=== PATIENT | male | born 1995 | race Caucasian/White ===

== ENCOUNTER 2016-10-28 11:08 | Inpatient (IN) | payer OTHER ==
[2016-10-28] MEDS ORDERED: Ziprasidone IM INJ* 20 MG/ML VIAL IM ONE (11:28)
[2016-10-28] MEDS ORDERED: LORazepam INJ* 2 MG/ML 1 ML VIAL IM ONE (12:44)
[2016-10-28] MEDS ORDERED: diPHENhydraMINE IV* 50 MG/ML 1 ml VIAL (BENADRYL) IM ONE (12:44)
[2016-10-28 14:29] LABS: Hematocrit 44 % (42-52); Hemoglobin 14.5 g/dl (14.0-18.0); Mean Corpuscular HGB Conc 33 g/dl (31-36); Mean Corpuscular Hemoglobin 29 pg (27-31); Mean Corpuscular Volume 87 fL (80-94); Mean Platelet Volume 7 um3 (7.4-10.4); Red Blood Count 5.05 10^6/ul (4.0-5.4); Red Cell Distribution Width 13 % (10.5-15); White Blood Count 9.4 10^3/ul (3.5-10.8)
[2016-10-28 14:43] LABS: ALT 35 U/L (7-52); AST 28 U/L (13-39); Albumin 4.3 g/dL (3.2-5.2); Alkaline Phosphatase 71 U/L (34-104); Anion Gap 8 mmol/L (2-11); BUN/Creatinine Ratio 8.6 (8-20); Blood Urea Nitrogen 9 mg/dL (6-24); CO2 Carbon Dioxide 26 mmol/L (22-32); Calcium 9.7 mg/dL (8.6-10.3); Chloride 104 mmol/L (101-111); EGFR African American 113.6 (>60); EGFR Non-African American 88.3 (>60); Glucose 100 mg/dL (70-100); Potassium 3.4 mmol/L (3.5-5.0); Sodium 138 mmol/L (133-145); Total Protein 7.3 g/dL (6.4-8.9)
[2016-10-28 15:15] LABS: Acetaminophen < 15 mcg/mL; Alcohol < 10 mg/dL (<10); Salicylate < 2.50 mg/dL (<30)
[2016-10-28 15:25] LABS: TSH (Thyroid Stimulating Horm) 3.46 mcIU/mL (0.34-5.60)
[2016-10-28 16:02] LABS: Urine Bacteria Absent (Absent); Urine Bilirubin Negative (Negative); Urine Glucose Negative (Negative); Urine Nitrite Negative (Negative)
[2016-10-28 16:12] LABS: Benzodiazepine Urine Screen None Detected (None Detect)
[2016-10-28] MEDS ORDERED: Nicotine Inhaler* 10 MG AMP INH PRN (16:41)
--- NOTE | 2016-10-28 19:13 | ED ---
Jude Mccord Billy, scribed for Hari Mayers MD on 10/28/16 at 1228 . Psychiatric Complaint - HPI Summary HPI Summary: Patient is a 21 year-old male coming to [facility] for mental health evaluation today. Per EMS, patient admits to marijuana use, unknown if any other drugs/ EtOH is involved. Patient states that he does not feel that he is having a psychotic break, when asked. He repeatedly states that "there's nothing you can do for me" and he says "I need help, only I can help myself." Patient is uncooperative for exam and does not answer most questions in a clear or coherent manner. He states he is anxious and depressed. Denies any hallucinations. - History Of Current Complaint Chief Complaint: EDMentalHealth Time Seen by Provider: 10/28/16 11:23 Hx Obtained From: Patient, EMS Hx From Patient Unobtainable Due To: Other - Uncooperative, limited history Onset/Duration: Gradual Onset Timing: Constant Severity Initially: Moderate Severity Currently: Moderate Character: Depressed, Anxious Associated Signs And Symptoms: Negative: Hallucinating - Allergies/Home Medications Home Medications: Home Medications Unobtainable [Unobtainable] 10/28/16 [History Confirmed 10/28/16] PMH/Surg Hx/FS Hx/Imm Hx Psychiatric History: Reports: Hx Depression Infectious Disease History: Unable to Obtain/Confirm Infectious Disease History: Denies: Traveled Outside the [place] in Last 30 Days - Family History Known Family History: Positive: Unknown - Patient is generally uncooperative. - Social History Lives: With Family Substance Use Type: Reports: Marijuana Smoking Status (MU): Unknown if Ever Smoked Review of Systems Negative: Fever Positive: Anxious, Depressed All Other Systems Reviewed And Are Negative: Yes Physical Exam Triage Information Reviewed: Yes Vital Signs On Initial Exam: Initial Vitals Temp Pulse Resp BP Pulse Ox 98.4 F 111 18 158/100 100 10/28/16 11:13 10/28/16 11:13 10/28/16 11:13 10/28/16 11:13 10/28/16 11:13 Vital Signs Reviewed: Yes Completion Of Physical Exam Limited Due To: Other - Patient is generally uncooperative for exam. Appearance: Positive: Well-Appearing, No Pain Distress Skin: Positive: Skin Color Reflects Adequate Perfusion, Dry Head/Face: Positive: Normal Head/Face Inspection Neurological: Positive: Alert, Oriented to Person Place, Time Psychiatric: Positive: Patient Uncooperative for Exam Diagnostics - Vital Signs Vital Signs Temp Pulse Resp BP Pulse Ox 10/28/16 11:13 98.4 F 111 18 158/100 100 - Laboratory Lab Results: Lab Results 10/28/16 10/28/16 10/28/16 Range/Units 14:22 14:22 15:44 WBC 9.4 (3.5-10.8) 10^3/ul RBC 5.05 (4.0-5.4) 10^6/ul Hgb 14.5 (14.0-18.0) g/dl Hct 44 (42-52) % MCV 87 (80-94) fL MCH 29 (27-31) pg MCHC 33 (31-36) g/dl RDW 13 (10.5-15) % Plt Count 215 (150-450) 10^3/ul MPV 7 L (7.4-10.4) um3 Neut % (Auto) 81.2 (38-83) % Lymph % (Auto) 12.7 L (25-47) % Edmonson % (Auto) 5.3 (1-9) % Eos % (Auto) 0.2 (0-6) % Baso % (Auto) 0.6 (0-2) % Absolute Neuts (auto) 7.7 (1.5-7.7) 10^3/ul Absolute Lymphs (auto) 1.2 (1.0-4.8) 10^3/ul Absolute Monos (auto) 0.5 (0-0.8) 10^3/ul Absolute Eos (auto) 0 (0-0.6) 10^3/ul Absolute Basos (auto) 0.1 (0-0.2) 10^3/ul Absolute Nucleated RBC 0.01 10^3/ul Nucleated RBC % 0.1 Sodium 138 (133-145) mmol/L Potassium 3.4 L (3.5-5.0) mmol/L Chloride 104 (101-111) mmol/L Carbon Dioxide 26 (22-32) mmol/L Anion Gap 8 (2-11) mmol/L BUN 9 (6-24) mg/dL Creatinine 1.05 (0.67-1.17) mg/dL Est GFR ( Amer) 113.6 (>60) Est GFR (Non-Af Amer) 88.3 (>60) BUN/Creatinine Ratio 8.6 (8-20) Glucose 100 (70-100) mg/dL Calcium 9.7 (8.6-10.3) mg/dL Total Bilirubin 1.20 H (0.2-1.0) mg/dL AST 28 (13-39) U/L ALT 35 (7-52) U/L Alkaline Phosphatase 71 (34-104) U/L Total Protein 7.3 (6.4-8.9) g/dL Albumin 4.3 (3.2-5.2) g/dL Globulin 3.0 (2-4) g/dL Albumin/Globulin Ratio 1.4 (1-3) TSH 3.46 (0.34-5.60) mcIU/mL Urine Color Straw Urine Appearance Clear Urine pH 6.0 (5-9) Ur Specific [place] 1.003 L (1.010-1.030) Urine Protein Negative (Negative) Urine Ketones Trace H (Negative) Urine Blood 1+ H (Negative) Urine Nitrate Negative (Negative) Urine Bilirubin Negative (Negative) Urine Urobilinogen Negative (Negative) Ur Leukocyte Esterase Negative (Negative) Urine WBC (Auto) Absent (Absent) Urine RBC (Auto) Trace(0-2/hpf) (Absent) Urine Bacteria Absent (Absent) Urine Glucose Negative (Negative) Salicylates < 2.50 (<30) mg/dL Urine Opiates Screen (None Detect) Acetaminophen < 15 mcg/mL Ur Barbiturates Screen (None Detect) Ur Phencyclidine Scrn (None Detect) Ur Amphetamines Screen (None Detect) U Benzodiazepines Scrn (None Detect) Urine Cocaine Screen (None Detect) U Cannabinoids Screen (None Detect) Serum Alcohol < 10 (<10) mg/dL 10/28/16 Range/Units 15:44 WBC (3.5-10.8) 10^3/ul RBC (4.0-5.4) 10^6/ul Hgb (14.0-18.0) g/dl Hct (42-52) % MCV (80-94) fL MCH (27-31) pg MCHC (31-36) g/dl RDW (10.5-15) % Plt Count (150-450) 10^3/ul MPV (7.4-10.4) um3 Neut % (Auto) (38-83) % Lymph % (Auto) (25-47) % Edmonson % (Auto) (1-9) % Eos % (Auto) (0-6) % Baso % (Auto) (0-2) % Absolute Neuts (auto) (1.5-7.7) 10^3/ul Absolute Lymphs (auto) (1.0-4.8) 10^3/ul Absolute Monos (auto) (0-0.8) 10^3/ul Absolute Eos (auto) (0-0.6) 10^3/ul Absolute Basos (auto) (0-0.2) 10^3/ul Absolute Nucleated RBC 10^3/ul Nucleated RBC % Sodium (133-145) mmol/L Potassium (3.5-5.0) mmol/L Chloride (101-111) mmol/L Carbon Dioxide (22-32) mmol/L Anion Gap (2-11) mmol/L BUN (6-24) mg/dL Creatinine (0.67-1.17) mg/dL Est GFR ( Amer) (>60) Est GFR (Non-Af Amer) (>60) BUN/Creatinine Ratio (8-20) Glucose (70-100) mg/dL Calcium (8.6-10.3) mg/dL Total Bilirubin (0.2-1.0) mg/dL AST (13-39) U/L ALT (7-52) U/L Alkaline Phosphatase (34-104) U/L Total Protein (6.4-8.9) g/dL Albumin (3.2-5.2) g/dL Globulin (2-4) g/dL Albumin/Globulin Ratio (1-3) TSH (0.34-5.60) mcIU/mL Urine Color Urine Appearance Urine pH (5-9) Ur Specific [place] (1.010-1.030) Urine Protein (Negative) Urine Ketones (Negative) Urine Blood (Negative) Urine Nitrate (Negative) Urine Bilirubin (Negative) Urine Urobilinogen (Negative) Ur Leukocyte Esterase (Negative) Urine WBC (Auto) (Absent) Urine RBC (Auto) (Absent) Urine Bacteria (Absent) Urine Glucose (Negative) Salicylates (<30) mg/dL Urine Opiates Screen None detected (None Detect) Acetaminophen mcg/mL Ur Barbiturates Screen None detected (None Detect) Ur Phencyclidine Scrn None detected (None Detect) Ur Amphetamines Screen None detected (None Detect) U Benzodiazepines Scrn None detected (None Detect) Urine Cocaine Screen None detected (None Detect) U Cannabinoids Screen None detected (None Detect) Serum Alcohol (<10) mg/dL Result Diagrams: 10/28/16 14:22 10/28/16 14:22 Lab Statement: Any lab studies that have been ordered have been reviewed, and results considered in the medical decision making process. Course/Dx - Course Course Of Treatment: mhe pending at shift change - Differential Dx/Clinical Impression Provider Diagnosis: Mental health problem - Critical Care Time Critical Care Time: 30-74 min Discharge - Discharge Plan Condition: Stable [place] [place]: No Primary Care Phys,NOPCP [Primary Care Provider] - The documentation as recorded by the Jude norton Billy accurately reflects the service I personally performed and the decisions made by me, Hari Mayers MD.
[2016-10-28] MEDS: OLANzapine TAB*ODT* 10 MG TAB PO SCH ×2 (21:40→22:15)
[2016-10-29] MEDS: Vitamin THERAPEUTIC TAB PO SCH (09:51)
[2016-10-29] MEDS: Ziprasidone CAP* 80 MG PO SCH (21:21)
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
[2016-10-30] MEDS: Vitamin THERAPEUTIC TAB PO SCH (09:45)
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
[2016-10-30] MEDS: Lithium Carbonate TAB* 300 MG PO SCH ×2 (12:04→20:52)
--- NOTE | 2016-10-30 14:09 | PN ---
[facility]: Group Therapy Note - Service Type Service Type: [id number] Group Psychotherapy - Cognitive Behavioral Group Therapy ( CBT):Patient was attentive and participatory in CBT programming this morning, and remained in good behavioral control. Patient expressed positive insights regarding relevant treatment interventions and goals.
[2016-10-30] MEDS: Ziprasidone CAP* 80 MG PO SCH (20:52)
[2016-10-31] MEDS ORDERED: diPHENhydraMINE PO* 50 MG ONE (00:34)
[2016-10-31] MEDS ORDERED: Haloperidol TAB* 5 MG ONE (00:35)
[2016-10-31] MEDS ORDERED: LORazepam TAB(*) 1 MG ONE (00:35)
[2016-10-31] MEDS ORDERED: LORazepam INJ* 2 MG/ML 1 ML VIAL ONE (00:37)
[2016-10-31] MEDS ORDERED: diPHENhydraMINE IV* 50 MG/ML 1 ml VIAL (BENADRYL) ONE (00:37)
[2016-10-31] MEDS ORDERED: Haloperidol INJ IV/IM* 5 MG/ML AMP ONE (00:38)
[2016-10-31] MEDS: Lithium Carbonate TAB* 300 MG PO SCH ×2 (09:15→21:59)
[2016-10-31] MEDS: Vitamin THERAPEUTIC TAB PO SCH (09:15)
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
[2016-10-31] MEDS: Ziprasidone CAP* 80 MG PO SCH (21:59)
[2016-11-01] MEDS: Vitamin THERAPEUTIC TAB PO SCH (09:20)
[2016-11-01] MEDS: Lithium Carbonate TAB* 300 MG PO SCH ×2 (09:20→20:17)
[2016-11-01] MEDS ORDERED: Ziprasidone CAP* 80 MG PO ONE (14:00)
[2016-11-01] MEDS ORDERED: Lithium Carbonate TAB* 300 MG PO ONE (14:00)
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
[2016-11-01] MEDS: Ziprasidone CAP* 80 MG PO SCH (20:18)
[2016-11-01] MEDS ORDERED: QUEtiapine TAB* 100 MG ONE (21:54)
[2016-11-01] MEDS ORDERED: diPHENhydraMINE PO* 50 MG PO PRN (21:59)
[2016-11-02] MEDS: Vitamin THERAPEUTIC TAB PO SCH (08:13)
[2016-11-02] MEDS: Lithium Carbonate TAB* 300 MG PO SCH ×2 (08:13→21:02)
[2016-11-02] MEDS: Ziprasidone CAP* 80 MG PO SCH (21:02)
[2016-11-02] MEDS ORDERED: LORazepam TAB(*) 1 MG ONE (21:27)
[2016-11-02] MEDS ORDERED: diPHENhydraMINE PO* 50 MG ONE (21:27)
[2016-11-02] MEDS ORDERED: Haloperidol TAB* 5 MG ONE (21:28)
[2016-11-02] MEDS ORDERED: LORazepam INJ* 2 MG/ML 1 ML VIAL ONE (21:36)
[2016-11-02] MEDS ORDERED: Haloperidol INJ IV/IM* 5 MG/ML AMP ONE (21:36)
[2016-11-02] MEDS ORDERED: diPHENhydraMINE IV* 50 MG/ML 1 ml VIAL (BENADRYL) ONE (21:36)
[2016-11-03] MEDS: Vitamin THERAPEUTIC TAB PO SCH (10:20)
[2016-11-03] MEDS: Lithium Carbonate TAB* 300 MG PO SCH (10:20)
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
[2016-11-03] MEDS: Lithium Carbonate ER* 450 MG TAB.ER PO SCH (20:35)
[2016-11-03] MEDS: Ziprasidone CAP* 80 MG PO SCH (20:36)
[2016-11-04] MEDS: Vitamin THERAPEUTIC TAB PO SCH (08:11)
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
[2016-11-04] MEDS ORDERED: diPHENhydraMINE PO* 50 MG PO ONE (21:35)
[2016-11-04] MEDS ORDERED: LORazepam TAB(*) 1 MG PO ONE (21:35)
[2016-11-04] MEDS ORDERED: Haloperidol TAB* 5 MG PO ONE (21:35)
[2016-11-04] MEDS ORDERED: Haloperidol TAB* 5 MG ONE (21:36)
[2016-11-04] MEDS ORDERED: diPHENhydraMINE PO* 50 MG ONE (21:37)
[2016-11-04] MEDS ORDERED: LORazepam TAB(*) 1 MG ONE (21:37)
[2016-11-04] MEDS ORDERED: Haloperidol INJ IV/IM* 5 MG/ML AMP ONE (21:38)
[2016-11-04] MEDS ORDERED: LORazepam INJ* 2 MG/ML 1 ML VIAL ONE (21:38)
[2016-11-04] MEDS ORDERED: diPHENhydraMINE IV* 50 MG/ML 1 ml VIAL (BENADRYL) ONE (21:39)
[2016-11-04] MEDS: Ziprasidone CAP* 80 MG PO SCH (21:45)
[2016-11-04] MEDS: Lithium Carbonate ER* 450 MG TAB.ER PO SCH (21:45)
[2016-11-05] MEDS: Vitamin THERAPEUTIC TAB PO SCH (08:16)
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
[2016-11-05] MEDS: Ziprasidone CAP* 80 MG PO SCH (21:47)
[2016-11-05] MEDS: Ziprasidone * 20 MG CAP (generic Geodon) PO SCH (21:48)
[2016-11-05] MEDS: Lithium Carbonate ER* 450 MG TAB.ER PO SCH (22:26)
[2016-11-06 07:24] LABS: HDL Cholesterol 40.6 mg/dL
[2016-11-06 07:46] LABS: Lithium 0.18 mmol/L (0.6-1.2)
[2016-11-06] MEDS: Vitamin THERAPEUTIC TAB PO SCH (09:48)
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
[2016-11-06] MEDS: Acetaminophen TAB* 325 MG PO PRN ×2 (16:47→20:07)
[2016-11-06] MEDS ORDERED: Mouth Piece, Nicotine* 1 EACH CARTRIDGE ONE (19:10)
[2016-11-06] MEDS: Lithium Carbonate ER* 450 MG TAB.ER PO SCH (21:29)
[2016-11-06] MEDS: Ziprasidone * 20 MG CAP (generic Geodon) PO SCH (21:29)
[2016-11-06] MEDS: Ziprasidone CAP* 80 MG PO SCH (21:30)
[2016-11-07] MEDS: Acetaminophen TAB* 325 MG PO PRN ×2 (02:36→06:23)
[2016-11-07] MEDS: Vitamin THERAPEUTIC TAB PO SCH (07:35)
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
[2016-11-07] MEDS: Lithium Carbonate ER* 450 MG TAB.ER PO SCH (20:55)
[2016-11-07] MEDS: Ziprasidone * 20 MG CAP (generic Geodon) PO SCH (20:56)
[2016-11-07] MEDS: Ziprasidone CAP* 80 MG PO SCH (20:57)
[2016-11-07] MEDS: Zolpidem TAB* 5 MG PO PRN (21:54)
[2016-11-08] MEDS: Vitamin THERAPEUTIC TAB PO SCH (08:34)
[2016-11-08] MEDS: Lithium Carbonate ER* 450 MG TAB.ER PO SCH (21:22)
[2016-11-08] MEDS: Ziprasidone * 20 MG CAP (generic Geodon) PO SCH (21:23)
[2016-11-08] MEDS: Ziprasidone CAP* 80 MG PO SCH (21:23)
[2016-11-08] MEDS: Zolpidem TAB* 5 MG PO PRN (22:03)
[2016-11-09] MEDS: Vitamin THERAPEUTIC TAB PO SCH ×2 (06:04→09:07)
[2016-11-09] MEDS: Acetaminophen TAB* 325 MG PO PRN ×2 (13:20→19:30)
[2016-11-09] MEDS: Al Hydrox/Mg Hydrox/Simet LIQ* 30 ML UDC PO PRN ×2 (14:59→19:05)
[2016-11-09] MEDS: Lithium Carbonate ER* 450 MG TAB.ER PO SCH (21:12)
[2016-11-09] MEDS: Ziprasidone * 20 MG CAP (generic Geodon) PO SCH (21:12)
[2016-11-09] MEDS: Ziprasidone CAP* 80 MG PO SCH (21:13)
[2016-11-09] MEDS: Zolpidem TAB* 5 MG PO PRN (21:21)
[2016-11-10] MEDS: Al Hydrox/Mg Hydrox/Simet LIQ* 30 ML UDC PO PRN ×4 (07:48→20:53)
[2016-11-10] MEDS: Vitamin THERAPEUTIC TAB PO SCH (08:21)
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
[2016-11-10] MEDS ORDERED: Ziprasidone CAP* 80 MG PO ONE (10:05)
--- NOTE | 2016-11-10 12:04 | PN ---
MHU: Group Therapy Note - Service Type Service Type: 33072 Group Psychotherapy - Cognitive Behavioral Group Therapy ( CBT):Patient was attentive and participatory in CBT programming this morning, and remained in good behavioral control. Patient expressed positive insights regarding relevant treatment interventions and goals.
[2016-11-10] MEDS: Lithium Carbonate ER* 450 MG TAB.ER PO SCH (20:53)
[2016-11-10] MEDS: Zolpidem TAB* 5 MG PO PRN ×2 (20:53→22:22)
[2016-11-10] MEDS: Ziprasidone CAP* 80 MG PO SCH ×2 (20:53)
[2016-11-11] MEDS: Al Hydrox/Mg Hydrox/Simet LIQ* 30 ML UDC PO PRN ×3 (04:42→17:50)
[2016-11-11 08:09] LABS: HDL Cholesterol 41.3 mg/dL
[2016-11-11 08:34] LABS: Lithium 0.6 mmol/L (0.6-1.2)
[2016-11-11] MEDS: Vitamin THERAPEUTIC TAB PO SCH (09:56)
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
[2016-11-11] MEDS ORDERED: Lithium Carbonate ER* 450 MG TAB.ER PO ONE (21:00)
[2016-11-11] MEDS: Lithium Carbonate ER* 450 MG TAB.ER PO SCH (21:48)
[2016-11-11] MEDS: Ziprasidone CAP* 80 MG PO SCH (21:49)
[2016-11-12] MEDS: Vitamin THERAPEUTIC TAB PO SCH (07:50)
[2016-11-12] MEDS: Al Hydrox/Mg Hydrox/Simet LIQ* 30 ML UDC PO PRN ×2 (07:51→19:47)
[2016-11-12] MEDS: Lithium Carbonate ER* 450 MG TAB.ER PO SCH ×2 (07:51→22:09)
--- NOTE | 2016-11-12 11:47 | PN ---
MHU: Group Therapy Note - Service Type Service Type: [id number] Group Psychotherapy - Cognitive Behavioral Group Therapy ( CBT):Patient presented in CBT programming as disorganized and disruptive in discussion and needed repeated redirection to attend to presented materials.
[2016-11-12] MEDS: Ziprasidone CAP* 80 MG PO SCH (22:10)
[2016-11-12] MEDS: Zolpidem TAB* 5 MG PO PRN (22:10)
[2016-11-13] MEDS: Vitamin THERAPEUTIC TAB PO SCH (09:01)
[2016-11-13] MEDS: Lithium Carbonate ER* 450 MG TAB.ER PO SCH ×2 (09:01→20:43)
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
[2016-11-13] MEDS: Ziprasidone * 20 MG CAP (generic Geodon) PO SCH (13:25)
[2016-11-13] MEDS: Acetaminophen TAB* 325 MG PO PRN ×2 (14:12→19:20)
[2016-11-13] MEDS: Ziprasidone CAP* 80 MG PO SCH (20:44)
[2016-11-13] MEDS: Zolpidem TAB* 5 MG PO PRN (20:44)
[2016-11-14] MEDS: Vitamin THERAPEUTIC TAB PO SCH (08:30)
[2016-11-14] MEDS: Lithium Carbonate ER* 450 MG TAB.ER PO SCH ×2 (08:30→20:49)
[2016-11-14] MEDS: Ziprasidone * 20 MG CAP (generic Geodon) PO SCH (08:31)
[2016-11-14] MEDS: Acetaminophen TAB* 325 MG PO PRN (13:04)
[2016-11-14] MEDS: Ziprasidone CAP* 80 MG PO SCH (20:49)
[2016-11-15] MEDS: Acetaminophen TAB* 325 MG PO PRN ×2 (08:34→12:52)
[2016-11-15] MEDS: Vitamin THERAPEUTIC TAB PO SCH (08:35)
[2016-11-15] MEDS: Lithium Carbonate ER* 450 MG TAB.ER PO SCH ×2 (08:35→20:21)
[2016-11-15] MEDS: Ziprasidone * 20 MG CAP (generic Geodon) PO SCH (11:12)
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
[2016-11-15] MEDS: Ziprasidone CAP* 80 MG PO SCH (20:21)
[2016-11-16] MEDS: Vitamin THERAPEUTIC TAB PO SCH (08:51)
[2016-11-16] MEDS: Ziprasidone * 20 MG CAP (generic Geodon) PO SCH (08:51)
[2016-11-16] MEDS: Lithium Carbonate ER* 450 MG TAB.ER PO SCH ×2 (10:01→22:04)
--- NOTE | 2016-11-16 14:47 | PN ---
Subjective - Subjective Subjective: Spoke with patient today at length regarding his desire to discontinue lithium. Reviewed bipolar illness and the fact that medication is one of the mainstays of treating the disorder. He was quite happy that his father said that he could come live with him upon discharge. Stated that he feels that his sleep here is poor secondary to the staff policy to check patients every 15 minutes throughout the night, but verbalized and understanding as to why it is done. He further reported that he is eager to have a family meeting. Case discussed with Dr. Skinner. Objective - Appearance Dysmorphic Features: No Hygiene: Normal Grooming: Well Kept - Behavior Psychomotor Activities: Normal Exhibits Abnormal Movement: No - Attitude and Relatedness Attitude and Relatedness: Cooperative Eye Contact: Good - Speech Quality: Unpressured Latencies: Normal Quantity: Appropriate - Mood Patient's Decription of Mood: "Good" - Affect Observed Affect: Non-labile Affect Consistent with: Euthymia - Thought Process Patient's Thought Process: Coherent Thought Content: No Passive Wish, No Suicidal Planning, No Homicidal Ideation, No Paranoid Ideation - Sensorium Type of Hallucinations: Visual: No, Auditory: No, Command: No - Level of Consciousness Orientation: Yes Intact, Yes Orientated to Time, Yes Orientated to Place, Yes Orientated to Person - Impulse Control Impulse Control: Tenuous - Insight and Judgement Insight and Judgement: Fair - Group Participation Particating in Group Activities: Yes - Medication Management Medication Management Adherence: Yes Assessment - Assessment Inpatient DSM-IV Dx: Bipolar Rosalina, severe with psychotic features Plan - Plan Treatment Plan: Name: TOMMIE CABRAL Birthdate: 1995 [id number] Medications: Current Medications Acetaminophen (Tylenol Tab*) 650 mg PO Q4H PRN PRN Reason: for pain; or Temp >101 F Last Admin: 11/15/16 12:52 Dose: 650 mg Al Hydrox/Mg Hydrox/Simethicone (Maalox Plus*) 30 ml PO Q4H PRN PRN Reason: INDIGESTION Last Admin: 11/12/16 19:47 Dose: 30 ml [place] Carbonate ([place] Carbonate Er Tab*) 900 mg PO BID [facility] Last Admin: 11/16/16 10:01 Dose: Not Given Multivitamins (Theragran Tab*) 1 tab PO DAILY [facility] Last Admin: 04/23/17 08:51 Dose: 1 tab Nicotine (Nicotine Inhaler*) 10 mg INH Q2H PRN PRN Reason: CRAVING Last Admin: 11/06/16 19:10 Dose: 10 mg Ziprasidone (Geodon Cap*) 160 mg PO BEDTIME FLACO Last Admin: 11/15/16 20:21 Dose: 160 mg Ziprasidone (Geodon (Generic) *) 40 mg PO DAILY FLACO Last Admin: 11/16/16 08:51 Dose: 40 mg Zolpidem Tartrate (Ambien Tab*) 5 mg PO BEDTIME PRN PRN Reason: INSOMNIA Last Admin: 11/13/16 20:44 Dose: 5 mg
[2016-11-16] MEDS: Ziprasidone CAP* 80 MG PO SCH (21:50)
[2016-11-17] MEDS: Lithium Carbonate ER* 450 MG TAB.ER PO SCH ×2 (08:51→21:10)
[2016-11-17] MEDS: Vitamin THERAPEUTIC TAB PO SCH (08:51)
[2016-11-17] MEDS: Ziprasidone * 20 MG CAP (generic Geodon) PO SCH (08:51)
--- NOTE | 2016-11-17 14:02 | PN ---
MHU: Group Therapy Note - Service Type Service Type: [id number] Group Psychotherapy - Cognitive Behavioral Group Therapy ( CBT):Patient was attentive and participatory in CBT programming this morning, and remained in good behavioral control. Patient expressed positive insights regarding relevant treatment interventions and goals.
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
[2016-11-17] MEDS: Acetaminophen TAB* 325 MG PO PRN ×2 (16:49→21:11)
[2016-11-17] MEDS: Ziprasidone CAP* 80 MG PO SCH (21:10)
[2016-11-18] MEDS: Lithium Carbonate ER* 450 MG TAB.ER PO SCH ×2 (10:03→22:01)
[2016-11-18] MEDS: Ziprasidone CAP* 80 MG PO SCH ×2 (10:03→22:01)
[2016-11-18] MEDS: Vitamin THERAPEUTIC TAB PO SCH (10:04)
--- NOTE | 2016-11-18 11:07 | PN ---
MHU: Group Therapy Note - Service Type Service Type: 59309 Group Psychotherapy - Cognitive Behavioral Group Therapy ( CBT):Patient was attentive and participatory in CBT programming this morning, and remained in good behavioral control. Patient expressed positive insights regarding relevant treatment interventions and goals.
[2016-11-18] MEDS: Al Hydrox/Mg Hydrox/Simet LIQ* 30 ML UDC PO PRN (15:59)
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
[2016-11-19] MEDS: Vitamin THERAPEUTIC TAB PO SCH (09:09)
[2016-11-19] MEDS: Lithium Carbonate ER* 450 MG TAB.ER PO SCH ×2 (09:09→21:01)
[2016-11-19] MEDS: Ziprasidone CAP* 80 MG PO SCH ×2 (09:09→21:01)
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
[2016-11-19] MEDS: Al Hydrox/Mg Hydrox/Simet LIQ* 30 ML UDC PO PRN ×2 (14:07→22:05)
[2016-11-20] MEDS: Lithium Carbonate ER* 450 MG TAB.ER PO SCH ×2 (09:05→20:20)
[2016-11-20] MEDS: Vitamin THERAPEUTIC TAB PO SCH (09:05)
--- NOTE | 2016-11-20 12:02 | PN ---
MHU: Group Therapy Note - Service Type Service Type: [id number] Group Psychotherapy - Cognitive Behavioral Group Therapy ( CBT):Patient was attentive and participatory in CBT programming this morning, and remained in good behavioral control. Patient expressed positive insights regarding relevant treatment interventions and goals. Alex tends to engage in criticisms of group material repeatedly, intiating conversation regarding LGBT issues in an intrusive and disruptive fashion.
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
[2016-11-20] MEDS: Al Hydrox/Mg Hydrox/Simet LIQ* 30 ML UDC PO PRN ×3 (14:49→21:43)
[2016-11-20] MEDS: Ziprasidone CAP* 80 MG PO SCH (20:19)
[2016-11-21 08:54] VITALS: BP 124/87
[2016-11-21] MEDS: Vitamin THERAPEUTIC TAB PO SCH (08:59)
[2016-11-21] MEDS: Lithium Carbonate ER* 450 MG TAB.ER PO SCH (09:00)
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
== END 2016-11-21 14:10 | disposition home or self-care (01) | DRG 753 ==
LOC: ED 11:08 → BSU 21:19
PROVIDERS: ADMIT Psychiatry & Neurology Psychiatry; ATTEND Psychiatry & Neurology Psychiatry
PROC: GZHZZZZ Group Psychotherapy (ICD-10-PCS; principal; 2016-10-30)
PROC: GZ58ZZZ Individual Psychotherapy, Cognitive-Behavioral (ICD-10-PCS; 2016-10-30)
DX: F31.2 Bipolar disorder, current episode manic severe with psychotic features (principal); Z68.42 Body mass index [BMI] 45.0-49.9, adult; E66.9 Obesity, unspecified; F17.210 Nicotine dependence, cigarettes, uncomplicated; Z63.9 Problem related to primary support group, unspecified; Z78.1 Physical restraint status
CPT/HCPCS: 36415; 80053; 80061; 80178; 80307; 80320; 80329; 81003; 81015; 83036; 84443; 85025; 90847; 90853; 99222; 99231; 99232; 99238; A9270-GY; G0480; J1200; J1630; J2060

== ENCOUNTER 2017-10-05 23:19 | Emergency (ER) | payer OTHER ==
[2017-10-06 00:37] LABS: EGFR Non-African American 77.3 (>60)
[2017-10-06 00:49] LABS: ABS Basophils 0 10^3/ul (0-0.2); ABS Eosinophils 0.1 10^3/ul (0-0.6); ABS Lymphocytes 1.4 10^3/ul (1.0-4.8); ABS Monocytes 0.6 10^3/ul (0-0.8); ABS Neutrophils 6.4 10^3/ul (1.5-7.7); ABS Nucleated RBC 0 10^3/ul; Eosinophil % 1.1 % (0-6); Hematocrit 45 % (42-52); Hemoglobin 15.1 g/dl (14.0-18.0); Lymphocyte % 16.1 % (25-47); Mean Corpuscular HGB Conc 34 g/dl (31-36); Mean Corpuscular Hemoglobin 29 pg (27-31); Mean Corpuscular Volume 86 fL (80-94); Mean Platelet Volume 7 um3 (7.4-10.4); Nucleated Red Blood Cells % 0; Platelet Count 261 10^3/ul (150-450); Red Blood Count 5.15 10^6/ul (4.0-5.4); Red Cell Distribution Width 13 % (10.5-15); White Blood Count 8.5 10^3/ul (3.5-10.8)
[2017-10-06 02:12] LABS: Urine Appearance Clear; Urine Blood Negative (Negative); Urine Color Yellow; Urine Ketones Negative (Negative); Urine Protein Negative (Negative); Urine Specific Gravity 1.018 (1.010-1.030); Urine Urobilinogen Negative (Negative)
[2017-10-06 06:11] VITALS: BP 161/93
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
== END 2017-10-06 06:09 | disposition home or self-care (01) ==
LOC: ED 23:19
DX: F31.9 Bipolar disorder, unspecified (principal); R44.3 Hallucinations, unspecified
CPT/HCPCS: 36415; 80053; 80307; 80320; 80329; 81003; 81015; 84443; 85025; 87086; 99285; G0480

== ENCOUNTER 2017-10-22 03:49 | Observation (INO) | payer OTHER ==
[2017-10-22] MEDS ORDERED: NS 0.9% 1000 ML* 1,000 ML IV ONE ×3 (03:56→04:17)
[2017-10-22 04:29] LABS: ABS Basophils 0 10^3/ul (0-0.2); ABS Eosinophils 0.1 10^3/ul (0-0.6); ABS Lymphocytes 0.8 10^3/ul (1.0-4.8); ABS Monocytes 0.4 10^3/ul (0-0.8); ABS Neutrophils 8.1 10^3/ul (1.5-7.7); ABS Nucleated RBC 0 10^3/ul; Eosinophil % 0.9 % (0-6); Hematocrit 41 % (42-52); Hemoglobin 13.9 g/dl (14.0-18.0); Lymphocyte % 8.7 % (25-47); Mean Corpuscular HGB Conc 34 g/dl (31-36); Mean Corpuscular Hemoglobin 30 pg (27-31); Mean Corpuscular Volume 87 fL (80-94); Nucleated Red Blood Cells % 0; Platelet Count 230 10^3/ul (150-450); Red Blood Count 4.69 10^6/ul (4.0-5.4); Red Cell Distribution Width 13 % (10.5-15); White Blood Count 9.5 10^3/ul (3.5-10.8)
[2017-10-22 04:47] LABS: EGFR Non-African American 77.3 (>60)
[2017-10-22] MEDS: NS 0.9% 1000 ML* 1,000 ML IV SCH ×2 (06:45→11:17)
--- NOTE | 2017-10-22 07:05 | ED ---
Pa Mccord Abhishek, scribed for Anthony Ward MD on 10/22/17 at 0436 . Substance Abuse/Use - HPI Summary HPI Summary: The pt is a 22 y/o male presenting to the [facility] with a chief complaint of substance abuse/overdose. The pt reportedly took excess amounts of his prescribed medications prior to entering the [facility]. The medications the pt is prescribed includes lithium and Lamictal. The pt reportedly began taking excess amount of his medication after a delusional paranoia episode. The pt believes he a split personality disorder and attributes this to the symptoms. PT denies suicidal ideations. The patient rates the pain 0/10 in severity. Symptoms aggravated by nothing. Symptoms alleviated by nothing. Pt also has a hx of drug use. - History Of Current Complaint Stated Complaint: OVERDOSE Time Seen by Provider: 10/22/17 03:56 Hx Obtained From: Patient Overdose Characteristics: Oral Timing Of Abuse: Binge Use Character: Fearful, Anxious Aggravating Factor(s): Nothing Alleviating Factor(s): Nothing Associated Signs And Symptoms: Paranoid Behavior, Other: - Negative suicidal ideations - Allergies/Home Medications Allergies/Adverse Reactions: Allergies Allergy/AdvReac Type Severity Reaction Status Date / Time No Known Allergies Allergy Verified 10/05/17 23:23 PMH/Surg Hx/FS Hx/Imm Hx GI History: Reports: Other GI Disorders - Diarrhea/Constipation Sensory History: Reports: Hx Contacts or Glasses Denies: Hx Hearing Aid Opthamlomology History: Reports: Hx Contacts or Glasses Psychiatric History: Reports: Hx Anxiety, Hx Attention Deficit Hyperactivity Disorder, Hx Eating Disorder - Binge, Hx Depression, Hx Post Traumatic Stress Disorder, Hx of Violent Episodes Against Others, Hx Substance Abuse - "Marijuana " Denies: Hx Inpatient Treatment, Hx Suicide Attempt Infectious Disease History: No Infectious Disease History: Denies: Traveled Outside the US in Last 30 Days - Family History Known Family History: Positive: Unknown - Patient is generally uncooperative. Family History: Patient denies relvant family history. - Social History Alcohol Use: None Substance Use Type: Reports: Marijuana Substance Use Comment - Amount & Last Used: History Smoking Status (MU): Never Smoked Tobacco Review of Systems Constitutional: Negative Eyes: Negative ENT: Negative Cardiovascular: Negative Respiratory: Negative Gastrointestinal: Negative Genitourinary: Negative Musculoskeletal: Negative Skin: Negative Neurological: Negative Psychological: Other - delusions Positive: Other - Negative suicidal ideations All Other Systems Reviewed And Are Negative: Yes Physical Exam - Summary Physical Exam Summary: Appearance: Well appearing, no pain distress, No signs of self-injury Skin: warm, dry, reflects adequate perfusion Head/face: normal Eyes: EOMI, [place] ENT: normal Neck: supple, non-tender Respiratory: CTA, breath sounds present Cardiovascular: RRR, pulses symmetrical Abdomen: non-tender, soft Bowel Sounds: present Musculoskeletal: normal, strength/ROM intact Neuro: normal, sensory motor intact, A&Ox3, reflexes are intact Triage Information Reviewed: Yes Vital Signs On Initial Exam: Initial Vitals Temp Pulse Resp BP Pulse Ox 98 F 102 19 134/81 91 10/22/17 03:57 10/22/17 03:57 10/22/17 03:57 10/22/17 03:57 10/22/17 03:57 Vital Signs Reviewed: Yes Diagnostics - Vital Signs Vital Signs Temp Pulse Resp BP Pulse Ox 10/22/17 03:57 98 F 102 19 134/81 91 - Laboratory Lab Results: Lab Results 10/22/17 10/22/17 10/22/17 Range/Units 04:20 04:20 05:27 WBC 9.5 (3.5-10.8) 10^3/ul RBC 4.69 (4.0-5.4) 10^6/ul Hgb 13.9 L (14.0-18.0) g/dl Hct 41 L (42-52) % MCV 87 (80-94) fL MCH 30 (27-31) pg MCHC 34 (31-36) g/dl RDW 13 (10.5-15) % Plt Count 230 (150-450) 10^3/ul MPV 7.0 L (7.4-10.4) um3 Neut % (Auto) 85.6 H (38-83) % Lymph % (Auto) 8.7 L (25-47) % [place] % (Auto) 4.5 (0-7) % Eos % (Auto) 0.9 (0-6) % Baso % (Auto) 0.3 (0-2) % Absolute Neuts (auto) 8.1 H (1.5-7.7) 10^3/ul Absolute Lymphs (auto) 0.8 L (1.0-4.8) 10^3/ul Absolute Monos (auto) 0.4 (0-0.8) 10^3/ul Absolute Eos (auto) 0.1 (0-0.6) 10^3/ul Absolute Basos (auto) 0 (0-0.2) 10^3/ul Absolute Nucleated RBC 0 10^3/ul Nucleated RBC % 0 Sodium 139 (139-145) mmol/L Potassium 3.5 (3.5-5.0) mmol/L Chloride 106 (101-111) mmol/L Carbon Dioxide 23 (22-32) mmol/L Anion Gap 10 (2-11) mmol/L BUN 16 (6-24) mg/dL Creatinine 1.17 (0.67-1.17) mg/dL Est GFR ( Amer) 99.4 (>60) Est GFR (Non-Af Amer) 77.3 (>60) BUN/Creatinine Ratio 13.7 (8-20) Glucose 132 H (70-100) mg/dL Calcium 9.7 (8.6-10.3) mg/dL Total Bilirubin 0.80 (0.2-1.0) mg/dL AST 18 (13-39) U/L ALT 22 (7-52) U/L Alkaline Phosphatase 66 (34-104) U/L Total Protein 7.1 (6.4-8.9) g/dL Albumin 4.3 (3.2-5.2) g/dL Globulin 2.8 (2-4) g/dL Albumin/Globulin Ratio 1.5 (1-3) TSH 3.23 (0.34-5.60) mcIU/mL Salicylates < 2.50 (<30) mg/dL Acetaminophen < 15 mcg/mL [place] 0.98 1.07 (0.6-1.2) mmol/L Serum Alcohol < 10 (<10) mg/dL Result Diagrams: 10/22/17 04:20 10/22/17 04:20 Lab Statement: Any lab studies that have been ordered have been reviewed, and results considered in the medical decision making process. - EKG 0501 EKG Rhythm: Sinus Rhythm - [address] Segment: Non-Specific Re-Evaluation - Re-Evaluation 0433 Re-Evaluation Time: 04:35 Change: Unchanged Comment: We called Ethel at Poison control, repeat lithium levels after 1 hour and repeated after 2 to 4 hours. They will follow up with him. 0538 Re-Evaluation Time: 05:38 Comment: First lithium level is nontoxic 0630 Re-Evaluation Time: 06:30 Comment: [place] levels to be repeated every two hours. We will monitor until they come down enough. Undetermined amount of time how long that might take Course/Dx - Course Course Of Treatment: pt with bipolar with paranoia/delusions. Mult admissions in past. Today with potentially dangerous ingestion of his lithium/ lamictal/antipsychotic. Following lithium levels. 2L IVF bolus then gtt for poss lithium toxicity. Will require admit and close 2-4hr interval following of levels. Hospitalist to admit. evaluators aware of pt, expect inpt evaluation. - Diagnoses Provider Diagnoses: [place] overdose, Bipolar disorder, Overdose of antipsychotic - Critical Care Time Critical Care Time: 30-74 min - CCT is exclusive of separetly billable procedures Discharge - Sign-Out/Discharge Documenting (check all that apply): Discharge - [place] [facility] [place]charge Plan Condition: Guarded Disposition: ADMITTED TO [facility] Referrals: No Primary Care Phys,NOPCP [Primary Care Provider] - - Billing Disposition and Condition Condition: GUARDED [place] [place] The documentation as recorded by the Pa norton Abhishek accurately reflects the service I personally performed and the decisions made by me, Anthony Ward MD.
[2017-10-22 07:21] LABS: Urine Appearance Clear; Urine Blood Negative (Negative); Urine Color Yellow; Urine Ketones Negative (Negative); Urine Protein Negative (Negative); Urine Specific Gravity 1.013 (1.010-1.030); Urine Urobilinogen Negative (Negative)
[2017-10-22] MEDS ORDERED: Acetaminophen TAB* 325 MG PO PRN (07:40)
[2017-10-22] MEDS ORDERED: Zolpidem TAB* 5 MG PO PRN (07:42)
[2017-10-22] MEDS ORDERED: NS 0.9% 1000 ML* 1,000 ML IV SCH (07:45)
[2017-10-22] MEDS ORDERED: LORazepam TAB(*) 1 MG PO PRN (11:07)
[2017-10-22 14:51] VITALS: BP 141/92
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
--- NOTE | 2017-10-22 18:20 | CONS ---
CC: Shayy Morales DO * CONSULTATION REPORT: DATE OF CONSULT: 10/22/17 ATTENDING PHYSICIAN: Shayy Morales DO SUPERVISING PSYCHIATRIST: Shlomo Garcia MD REASON FOR CONSULT: The patient has a history of mental health admission. He presented to the emergency department after taking more than 1 dose of lithium. PSYCHIATRIC HISTORY: Alex is a 22-year-old male who has a history of bipolar 1 disorder. He recalls his first manic episode with psychotic features was in 2017. Since that time, he has been working with outpatient Mental Health Services at [facility]. He sees Dr. Copeland and attends [facility] program. Upon presentation, the patient was antsy and demanding to be discharged from the medical floor. He was eager to be discharged to attend [facility] program and his outpatient metal health. He was refusing continued blood draws as they are monitoring the lithium level. According to Dr. Morales and Poison Control, the patient is to be monitored until lithium level peaks and starts to trend down. During interview, the patient is insightful about bipolar disorder and rapid cycling. He states that he is noticing an increase in hypomania. He states he was told by his outpatient psychiatrist to utilize Saphris as needed to quell hypomania. The patient states he took 1 dose of Saphris and did not wait very much longer before taking a second dose. He states that he then took more lithium to help calm him down and took another dose because he forgot the first dose and all of this was based on his fear of becoming in a manic or panic phase. The patient reports frustration with hospitalization on the medical floor related to increased noise and stimulation and decreased sleep. The patient goes on to talk about his many triggers for both lisa and PTSD. He repeats same sentences over again. He states that he has very intense emotions and he is triggered by many things and learning what those triggers are. When we discussed the possibility of transferring to the [facility] after he was medically stabilized, he is agreeable and reports relief from anxiety of needing to either stay in the hospital or be discharged against medical advice. MENTAL STATUS EXAM: The patient is a tall large white male, who appears stated age. He is wearing a hospital gown. He is adequately groomed. He has long hair on the top of his head, wearing dark rimmed glasses, a choker necklace, and hospital gown. He is restless and moves positions often. His eye contact is good. His attitude is cooperative, but easily distracted. He is alert and oriented x3. His attention is poor. Memory is 3/3. His speech is rapid and loud, at times noted to be hyperverbal. His mood is elevated. His affect is expansive. Thought process is tangential. Thought content: The patient endorses periods of depersonalization. He denies suicidal or homicidal ideations. He is grandiose and as stated above, tangential on most flight of ideas. His insight is fair. His judgement is good in that he is agreeable to transfer to [facility] for psychiatric stabilization. DIAGNOSIS: Bipolar 1 disorder, current episode manic, status post lithium toxicity. ASSESSMENT: Alex is a 22-year-old male with a history of bipolar 1 disorder, who is actively engaged in outpatient treatment. He has sensed an increase in hypomania and in order to quell this, he took multiple doses of both Saphris and lithium. He has been monitored on the medical floor per poison control recommendations. When he is medically stable, he can be admitted voluntarily to the adult BSU. The patient was ordered lorazepam 1 mg q.4 hours p.r.n. anxiety while awaiting transfer to psych services. I have spoken with the patient's primary nurse, Josy, and attending provider Dr. Morales, and notified them of recommendations. MIKHAIL BRUNO NP [id number]/[facility] #: [id number] CURT
[2017-10-22] MEDS ORDERED: Asenapine(NF) 10 MG TAB.SL SL SCH (21:00)
[2017-10-22] MEDS ORDERED: lamoTRIgine TAB(*) 100 MG PO SCH (21:00)
--- NOTE | 2017-10-23 14:20 | DS ---
DISCHARGE SUMMARY: DATE OF ADMISSION: 10/22/17 DATE OF DISCHARGE: 10/22/17 PRIMARY CARE PROVIDER: None. PRINCIPAL DIAGNOSIS: [place] overdose. SECONDARY DIAGNOSIS: Bipolar disorder with psychotic features. HISTORY OF PRESENT ILLNESS: Mr. Myrick is a 22-year-old male who has history of bipolar disorder and states that he believes he was manic over the last 1 week. He states that last evening he took his medications as prescribed. At approximately between 2 and 3 a.m. on the morning of admission, he felt himself getting triggered and was concerned that he could hurt somebody. At that point he took an extra dose of his lithium, his Lamictal, and his Saphris. The patient identified that this was wrong and therefore, presented to the emergency room for evaluation. In the ER, the patient had a lithium level that was within normal range. It subsequently increased and when Poison Control was contacted, they recommended following the lithium level until it peaks. The patient was admitted to the medical floor where he received IV fluid hydration. The patient's lithium level started at 0.98 and went up to 1.30 at 0925 and by 1355 on 10/22/17, the lithium level is back down to 0.83. At this point, Poison Control cleared the patient and he was felt to be stable for discharge to the Mental Health Unit. The patient had been seen by Natalya Bailey NP, from [facility] who did recommend admission to the MHU for stabilization. FOLLOWUP CONCERNS: The patient is being discharged to the Mental Health Unit today, 10/22/17. ACTIVITY LEVEL: As tolerated. DIET: Regular. CONDITION ON DISCHARGE: Stable. TIME SPENT: Thirty-five minutes was spent discharging this patient. [id number]/[facility] #: [id number] CURT
== END 2017-10-22 20:30 ==
LOC: ED 03:49 → MED 07:40
PROVIDERS: ADMIT Hospitalist; ATTEND Hospitalist
DX: T56.891A Toxic effect of other metals, accidental (unintentional), initial encounter (principal); Y92.9 Unspecified place or not applicable; F23 Brief psychotic disorder; F31.2 Bipolar disorder, current episode manic severe with psychotic features; E66.9 Obesity, unspecified; Z79.899 Other long term (current) drug therapy; R94.31 Abnormal electrocardiogram [ECG] [EKG]
CPT/HCPCS: 36415; 80053; 80175; 80178; 80307; 80320; 80329; 81003; 81015; 84443; 85025; 87086; 93005; 96360; 96361; 99283; A9270-GY; G0378; G0480

== ENCOUNTER 2017-10-22 20:40 | Inpatient (IN) | payer OTHER ==
[2017-10-23] MEDS: Al Hydrox/Mg Hydrox/Simet LIQ* 30 ML UDC PO PRN (05:22)
[2017-10-23] MEDS: Zolpidem TAB* 5 MG PO PRN (06:15)
[2017-10-23] MEDS: lamoTRIgine TAB(*) 100 MG PO SCH (09:18)
[2017-10-23] MEDS: Lithium Carbonate ER* 450 MG TAB.ER PO SCH ×2 (09:19→20:06)
[2017-10-23] MEDS: Vitamin THERAPEUTIC TAB PO SCH (09:20)
[2017-10-23] MEDS: ASENAPINE 10 MG SL SCH (10:25)
--- NOTE | 2017-10-23 13:10 | PN ---
[facility]: Group Therapy Note - Service Type Service Type: 45914 Group Psychotherapy - Cognitive Behavioral Group Therapy ( CBT):Patient presented in CBT programming as disorganized and disruptive in discussion and needed repeated redirection to attend to presented materials.
[2017-10-23] MEDS: Acetaminophen TAB* 325 MG PO PRN (15:18)
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
[2017-10-24] MEDS: Al Hydrox/Mg Hydrox/Simet LIQ* 30 ML UDC PO PRN (01:05)
[2017-10-24] MEDS: Zolpidem TAB* 5 MG PO PRN (01:59)
[2017-10-24] MEDS: ASENAPINE 10 MG SL SCH (09:33)
[2017-10-24] MEDS: Vitamin THERAPEUTIC TAB PO SCH (09:35)
[2017-10-24] MEDS: lamoTRIgine TAB(*) 100 MG PO SCH (09:36)
[2017-10-24] MEDS: Lithium Carbonate ER* 450 MG TAB.ER PO SCH ×2 (09:36→21:38)
[2017-10-25] MEDS: Zolpidem TAB* 5 MG PO PRN ×2 (00:01→23:20)
[2017-10-25] MEDS: Al Hydrox/Mg Hydrox/Simet LIQ* 30 ML UDC PO PRN (02:40)
[2017-10-25] MEDS: lamoTRIgine TAB(*) 100 MG PO SCH (09:00)
[2017-10-25] MEDS: Lithium Carbonate ER* 450 MG TAB.ER PO SCH ×2 (09:01→20:48)
[2017-10-25] MEDS: Vitamin THERAPEUTIC TAB PO SCH (09:02)
[2017-10-25] MEDS: ASENAPINE 10 MG SL SCH (09:18)
--- NOTE | 2017-10-25 15:04 | PN ---
Subjective - Subjective Date of Service: 10/25/17 Service Type: 40382 Hosp care 15 min low complexity Subjective: Tommie has been feeling much better and was found interacting with peers very happy, upbeat, talkative, mildly pressured but pleasant. Reports that he is calmer and not having any mood, thoughts or perceptual problems. Didn't have any suicidal intent when took the OD, just wanted to feel calm. Objective - Appearance Appearance: Obese Dysmorphic Features: No Hygiene: Normal Grooming: Fairly Well Kept - Behavior Psychomotor Activities: Abnormal-Increased Exhibits Abnormal Movement: No - Attitude and Relatedness Attitude and Relatedness: Appropriate Eye Contact: Good - Speech Quality: Pressured Latencies: Short Quantity: Appropriate - Mood Patient's Decription of Mood: "Great" - Affect Observed Affect: Euphoric - Thought Process Patient's Thought Process: Coherent, Filght of Ideas, Circumstantial, Over Inclusive Thought Content: No Passive Wish, No Suicidal Planning, No Homicidal Ideation, No Paranoid Ideation - Sensorium Experiencing Hallucinations: No, Sensorium is Clear Type of Hallucinations: Visual: No, Auditory: No, Command: No - Level of Consciousness Level of Consciousness: Alert Orientation: Yes Intact, Yes Orientated to Time, Yes Orientated to Place, Yes Orientated to Person - Impulse Control Impulse Control: Tenuous - Insight and Judgement Insight and Judgement: Poor - Group Participation Particating in Group Activities: Yes - Medication Management Medication Management Adherence: Yes Assessment - Assessment Merits Inpatient Hospitalization: For Immediate Safety, For Stabilization, Pending Safe DC Plan Plan - Plan Treatment Plan: Name: TOMMIE CABRAL Birthdate: 1995 [id number] Continued Medication Management: Continue Outpt Medication Medications: Current Medications Acetaminophen (Tylenol Tab*) 650 mg PO Q4H PRN PRN Reason: PAIN or TEMP > 101 F Last Admin: 10/23/17 15:18 Dose: 650 mg Al Hydrox/Mg Hydrox/Simethicone (Maalox Plus*) 30 ml PO Q4H PRN PRN Reason: INDIGESTION Last Admin: 10/25/17 02:40 Dose: 30 ml Asenapine (Saphris(Nf)) 10 mg SL DAILY [facility] Last Admin: 10/25/17 09:18 Dose: 10 mg Lamotrigine (Lamictal Tab(*)) 450 mg PO DAILY [facility] Last Admin: 10/25/17 09:00 Dose: 450 mg [place] Carbonate ([place] Carbonate Er Tab*) 900 mg PO BID [facility] Last Admin: 10/25/17 09:01 Dose: 900 mg Multivitamins (Theragran Tab*) 1 tab PO DAILY [facility] Last Admin: 10/25/17 09:02 Dose: 1 tab Zolpidem Tartrate (Ambien Tab*) 5 mg PO BEDTIME PRN PRN Reason: INSOMNIA Last Admin: 10/25/17 00:01 Dose: 5 mg - Discharge Plan Discharge Plan: Outpatient [facility]
[2017-10-26] MEDS: lamoTRIgine TAB(*) 100 MG PO SCH (10:25)
[2017-10-26] MEDS: Vitamin THERAPEUTIC TAB PO SCH (10:25)
[2017-10-26] MEDS: Lithium Carbonate ER* 450 MG TAB.ER PO SCH ×3 (10:25→22:23)
[2017-10-26] MEDS: ASENAPINE 10 MG SL SCH (10:26)
--- NOTE | 2017-10-26 11:13 | PN ---
[facility]: Group Therapy Note - Service Type Service Type: 56101 Group Psychotherapy - Cognitive Behavioral Group Therapy ( CBT):Patient presented in CBT programming as disorganized and disruptive in discussion and needed repeated redirection to attend to presented materials.
[2017-10-26] MEDS ORDERED: QUEtiapine TAB* 100 MG PO ONE (15:55)
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
[2017-10-26] MEDS: LORazepam TAB(*) 1 MG PO PRN (16:17)
[2017-10-26] MEDS: QUEtiapine TAB* 300 MG PO SCH (22:22)
[2017-10-26] MEDS: Zolpidem TAB* 5 MG PO PRN (23:41)
[2017-10-27] MEDS: LORazepam TAB(*) 1 MG PO PRN ×2 (05:58→16:13)
[2017-10-27] MEDS ORDERED: ASENAPINE 5 MG SL SCH (09:00)
[2017-10-27] MEDS: Lithium Carbonate ER* 450 MG TAB.ER PO SCH ×3 (09:22→21:04)
[2017-10-27] MEDS: Vitamin THERAPEUTIC TAB PO SCH (09:22)
[2017-10-27] MEDS: lamoTRIgine TAB(*) 100 MG PO SCH (09:23)
[2017-10-27] MEDS: QUEtiapine TAB* 300 MG PO SCH (09:24)
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
[2017-10-27] MEDS ORDERED: Haloperidol TAB* 5 MG ONE (16:11)
[2017-10-27] MEDS: Haloperidol TAB* 5 MG PO PRN (16:12)
[2017-10-27] MEDS: QUEtiapine TAB* 100 MG PO SCH (21:04)
[2017-10-28] MEDS: Haloperidol TAB* 5 MG PO PRN
[2017-10-28] MEDS: LORazepam TAB(*) 1 MG PO PRN
[2017-10-28] MEDS ORDERED: LORazepam TAB(*) 1 MG PO ONE (01:40)
[2017-10-28] MEDS ORDERED: Haloperidol TAB* 5 MG PO ONE (01:40)
[2017-10-28] MEDS: QUEtiapine TAB* 100 MG PO SCH ×2 (09:14→21:18)
[2017-10-28] MEDS: Vitamin THERAPEUTIC TAB PO SCH (09:14)
[2017-10-28] MEDS: Lithium Carbonate ER* 450 MG TAB.ER PO SCH ×3 (09:15→21:19)
[2017-10-28] MEDS: lamoTRIgine TAB(*) 100 MG PO SCH (09:16)
[2017-10-28] MEDS ORDERED: chlorproMAZINE TAB* 100 MG PO PRN (09:57)
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
[2017-10-28] MEDS ORDERED: Haloperidol INJ IV/IM* 5 MG/ML AMP IM ONE ×2 (23:00→23:55)
[2017-10-28] MEDS ORDERED: LORazepam INJ* 2 MG/ML 1 ML VIAL IM ONE (23:00)
[2017-10-28] MEDS ORDERED: diPHENhydraMINE IV* 50 MG/ML 1 ml VIAL (BENADRYL) IM ONE ×2 (23:00→23:55)
[2017-10-28] MEDS ORDERED: LORazepam INJ* 2 MG/ML 1 ML VIAL ONE (23:03)
[2017-10-28] MEDS ORDERED: Haloperidol INJ IV/IM* 5 MG/ML AMP ONE (23:03)
[2017-10-28] MEDS ORDERED: diPHENhydraMINE IV* 50 MG/ML 1 ml VIAL (BENADRYL) ONE (23:03)
[2017-10-29] MEDS ORDERED: Haloperidol INJ IV/IM* 5 MG/ML AMP IM ONE (04:25)
[2017-10-29] MEDS ORDERED: diPHENhydraMINE IV* 50 MG/ML 1 ml VIAL (BENADRYL) IM ONE (04:25)
[2017-10-29] MEDS: LORazepam TAB(*) 1 MG PO PRN (06:05)
[2017-10-29] MEDS: QUEtiapine TAB* 100 MG PO SCH ×4 (11:14→20:22)
[2017-10-29] MEDS: lamoTRIgine TAB(*) 100 MG PO SCH (11:36)
[2017-10-29] MEDS: Lithium Carbonate ER* 450 MG TAB.ER PO SCH ×3 (11:36→20:22)
[2017-10-29] MEDS: Vitamin THERAPEUTIC TAB PO SCH (11:37)
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
[2017-10-29] MEDS: chlorproMAZINE TAB* 100 MG PO PRN ×2 (15:56→21:31)
[2017-10-30] MEDS: LORazepam TAB(*) 1 MG PO PRN (04:10)
[2017-10-30] MEDS: Lithium Carbonate ER* 450 MG TAB.ER PO SCH ×2 (09:21→20:17)
[2017-10-30] MEDS: lamoTRIgine TAB(*) 100 MG PO SCH (09:21)
[2017-10-30] MEDS: Vitamin THERAPEUTIC TAB PO SCH (09:22)
[2017-10-30] MEDS: QUEtiapine TAB* 100 MG PO SCH ×4 (09:22→22:14)
[2017-10-30 09:32] LABS: ABS Basophils 0 10^3/ul (0-0.2); ABS Eosinophils 0.3 10^3/ul (0-0.6); ABS Lymphocytes 0.9 10^3/ul (1.0-4.8); ABS Monocytes 0.3 10^3/ul (0-0.8); ABS Neutrophils 4.9 10^3/ul (1.5-7.7); ABS Nucleated RBC 0 10^3/ul; Eosinophil % 4.9 % (0-6); Hematocrit 41 % (42-52); Hemoglobin 13.8 g/dl (14.0-18.0); Lymphocyte % 13.5 % (25-47); Mean Corpuscular HGB Conc 33 g/dl (31-36); Mean Corpuscular Hemoglobin 29 pg (27-31); Mean Corpuscular Volume 88 fL (80-94); Mean Platelet Volume 6.9 um3 (7.4-10.4); Nucleated Red Blood Cells % 0; Platelet Count 216 10^3/ul (150-450); Red Blood Count 4.69 10^6/ul (4.0-5.4); Red Cell Distribution Width 13 % (10.5-15); White Blood Count 6.4 10^3/ul (3.5-10.8)
[2017-10-30 09:57] LABS: EGFR Non-African American 76.5 (>60)
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
[2017-10-30] MEDS: chlorproMAZINE TAB* 100 MG PO PRN ×2 (16:00→22:14)
[2017-10-31] MEDS: chlorproMAZINE TAB* 100 MG PO PRN ×4 (01:59→19:37)
[2017-10-31] MEDS: Acetaminophen TAB* 325 MG PO PRN ×2 (06:25→13:16)
[2017-10-31] MEDS: Al Hydrox/Mg Hydrox/Simet LIQ* 30 ML UDC PO PRN ×2 (07:44→13:19)
[2017-10-31] MEDS: QUEtiapine TAB* 100 MG PO SCH ×4 (07:45→19:37)
[2017-10-31] MEDS: Vitamin THERAPEUTIC TAB PO SCH ×2 (07:45→10:21)
[2017-10-31] MEDS: Lithium Carbonate ER* 450 MG TAB.ER PO SCH ×3 (07:45→19:37)
[2017-10-31] MEDS: lamoTRIgine TAB(*) 100 MG PO SCH ×2 (07:46→10:20)
[2017-10-31] MEDS ORDERED: diPHENhydraMINE IV* 50 MG/ML 1 ml VIAL (BENADRYL) ONE ×2 (10:35→20:58)
[2017-10-31] MEDS ORDERED: chlorproMAZINE INJ* 25 MG/ML 2 ML (50 MG) ONE (10:35)
[2017-10-31] MEDS: LORazepam TAB(*) 1 MG PO PRN ×2 (10:38→22:33)
--- NOTE | 2017-10-31 16:16 | PN ---
Subjective - Subjective Subjective: Tommie remains on CO for safety, he remains hyperactive, intrusive with elevated mood, "I am overly excited." He asserts that he has been sleeping well. He needed to be medicated prn this morning after he discarded some of his AM meds and became agitated and threatening when confronted. Objective - Appearance Appearance: Well Developed/Nourished Dysmorphic Features: No Hygiene: Normal Grooming: Well Kept - Behavior Psychomotor Activities: Normal Exhibits Abnormal Movement: No - Attitude and Relatedness Attitude and Relatedness: Psychotically Related Eye Contact: Fair - Speech Quality: Unpressured Latencies: Short Quantity: Copious - Mood Patient's Decription of Mood: excited - Affect Observed Affect: Non-labile Affect Consistent with: Euphoria - Thought Process Patient's Thought Process: Disorganized, Tangential Thought Content: No Passive Wish, No Suicidal Planning, No Homicidal Ideation, No Paranoid Ideation - Sensorium Experiencing Hallucinations: No, Sensorium is Clear - Level of Consciousness Level of Consciousness: Alert Orientation: Yes Intact - Impulse Control Impulse Control: Poor - Insight and Judgement Insight and Judgement: Impaired - Group Participation Particating in Group Activities: No - Medication Management Medication Management Adherence: Yes Assessment - Assessment Merits Inpatient Hospitalization: For Ongoing Evaluation, Consolidate Improvements, For Discharge Planning Inpatient DSM-V Dx: F31.12 Clinical Impression: Ongoing impairing manic symptoms. Partially adherent with prescribed meds. He needs continued admission for stabilization. Plan - Plan Treatment Plan: Name: TOMMIE CABRAL Birthdate: 1995 [id number] Medications: Current Medications Acetaminophen (Tylenol Tab*) 650 mg PO Q4H PRN PRN Reason: PAIN or TEMP > 101 F Last Admin: 10/31/17 13:16 Dose: 650 mg Al Hydrox/Mg Hydrox/Simethicone (Maalox Plus*) 30 ml PO Q4H PRN PRN Reason: INDIGESTION Last Admin: 10/31/17 13:19 Dose: 30 ml Chlorpromazine HCl (Thorazine Tab*) 100 mg PO Q4H PRN PRN Reason: AGITATION Last Admin: 10/31/17 06:40 Dose: 100 mg Lamotrigine (Lamictal Tab(*)) 450 mg PO DAILY [facility] Last Admin: 10/31/17 10:20 Dose: Not Given Gamal[place] Carbonate (Gamaliel Carbonate Er Tab*) 900 mg PO BID [facility] Last Admin: 10/31/17 10:21 Dose: Not Given Lorazepam (Ativan Tab(*)) 2 mg PO Q4H PRN PRN Reason: AGITATION Last Admin: 10/30/17 04:10 Dose: 2 mg Multivitamins (Theragran Tab*) 1 tab PO DAILY [facility] Last Admin: 10/31/17 10:21 Dose: Not Given Quetiapine Fumarate (Seroquel Tab*) 400 mg PO TID [facility] Last Admin: 10/31/17 13:16 Dose: 400 mg Zolpidem Tartrate (Ambien Tab*) 5 mg PO BEDTIME PRN PRN Reason: INSOMNIA Last Admin: 10/26/17 23:41 Dose: 5 mg - Discharge Plan Discharge Plan: Outpatient Follow Up Outpatient Program: [facility]
[2017-10-31] MEDS ORDERED: Haloperidol INJ IV/IM* 5 MG/ML AMP ONE (20:58)
[2017-10-31] MEDS ORDERED: LORazepam INJ* 2 MG/ML 1 ML VIAL ONE (20:58)
[2017-10-31] MEDS ORDERED: diPHENhydraMINE IV* 50 MG/ML 1 ml VIAL (BENADRYL) IM ONE (21:00)
[2017-10-31] MEDS ORDERED: diPHENhydraMINE PO* 50 MG PO ONE (21:00)
[2017-10-31] MEDS ORDERED: Haloperidol TAB* 5 MG PO ONE (21:00)
[2017-10-31] MEDS ORDERED: Haloperidol INJ IV/IM* 5 MG/ML AMP IM ONE (21:00)
[2017-10-31] MEDS ORDERED: diPHENhydraMINE PO* 50 MG ONE (21:05)
[2017-10-31] MEDS ORDERED: Haloperidol TAB* 5 MG ONE (21:05)
[2017-11-01] MEDS: LORazepam TAB(*) 1 MG PO PRN (03:40)
[2017-11-01] MEDS: chlorproMAZINE TAB* 100 MG PO PRN (04:27)
[2017-11-01] MEDS: QUEtiapine TAB* 100 MG PO SCH ×3 (09:53→20:57)
[2017-11-01] MEDS: Lithium Carbonate ER* 450 MG TAB.ER PO SCH ×2 (09:53→20:57)
[2017-11-01] MEDS: Vitamin THERAPEUTIC TAB PO SCH (09:53)
[2017-11-01] MEDS: lamoTRIgine TAB(*) 100 MG PO SCH (09:54)
[2017-11-01] MEDS ORDERED: Mouth Piece, Nicotine* 1 EACH CARTRIDGE ONE (10:37)
[2017-11-01] MEDS ORDERED: Nicotine Inhaler* 10 MG AMP ONE (10:37)
[2017-11-01] MEDS ORDERED: Nicotine Inhaler* 10 MG AMP INH PRN (11:43)
[2017-11-01] MEDS ORDERED: Mouth Piece, Nicotine* 1 EACH CARTRIDGE INH ONE (12:00)
[2017-11-01] MEDS: Al Hydrox/Mg Hydrox/Simet LIQ* 30 ML UDC PO PRN (14:30)
[2017-11-01] MEDS ORDERED: chlorproMAZINE INJ* 25 MG/ML 2 ML (50 MG) IM ONE (22:10)
[2017-11-01] MEDS ORDERED: diPHENhydraMINE IV* 50 MG/ML 1 ml VIAL (BENADRYL) IM ONE (22:10)
[2017-11-01] MEDS ORDERED: chlorproMAZINE INJ* 25 MG/ML 2 ML (50 MG) ONE (22:14)
[2017-11-01] MEDS ORDERED: diPHENhydraMINE IV* 50 MG/ML 1 ml VIAL (BENADRYL) ONE (22:14)
[2017-11-01] MEDS ORDERED: LORazepam INJ* 2 MG/ML 1 ML VIAL IM ONE (23:30)
[2017-11-01] MEDS ORDERED: Haloperidol INJ IV/IM* 5 MG/ML AMP IM ONE (23:30)
[2017-11-01] MEDS ORDERED: Haloperidol INJ IV/IM* 5 MG/ML AMP ONE (23:31)
[2017-11-01] MEDS ORDERED: LORazepam INJ* 2 MG/ML 1 ML VIAL ONE (23:31)
[2017-11-02] MEDS: lamoTRIgine TAB(*) 100 MG PO SCH ×2 (09:05→09:19)
[2017-11-02] MEDS: Vitamin THERAPEUTIC TAB PO SCH ×2 (09:06→09:19)
[2017-11-02] MEDS: QUEtiapine TAB* 100 MG PO SCH ×2 (09:06→09:19)
[2017-11-02] MEDS: Lithium Carbonate ER* 450 MG TAB.ER PO SCH ×3 (09:06→21:05)
[2017-11-02] MEDS: Ziprasidone * 20 MG CAP (generic Geodon) PO SCH ×2 (10:46→21:06)
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
[2017-11-03] MEDS: chlorproMAZINE TAB* 100 MG PO PRN (01:05)
[2017-11-03] MEDS: LORazepam TAB(*) 1 MG PO PRN (01:05)
[2017-11-03] MEDS: Ziprasidone * 20 MG CAP (generic Geodon) PO SCH ×2 (09:21→21:15)
[2017-11-03] MEDS: Vitamin THERAPEUTIC TAB PO SCH (09:21)
[2017-11-03] MEDS: Lithium Carbonate ER* 450 MG TAB.ER PO SCH (09:21)
[2017-11-03] MEDS: lamoTRIgine TAB(*) 100 MG PO SCH (09:21)
[2017-11-03] MEDS: Lithium LIQ* 300 MG/5 ML UDC PO SCH (21:12)
[2017-11-04] MEDS: chlorproMAZINE TAB* 100 MG PO PRN (03:15)
[2017-11-04] MEDS: LORazepam TAB(*) 1 MG PO PRN (03:15)
[2017-11-04] MEDS: lamoTRIgine TAB(*) 100 MG PO SCH ×2 (08:52→10:25)
[2017-11-04] MEDS: Vitamin THERAPEUTIC TAB PO SCH (08:52)
[2017-11-04] MEDS: Lithium LIQ* 300 MG/5 ML UDC PO SCH ×2 (08:52→10:26)
[2017-11-04] MEDS: Ziprasidone * 20 MG CAP (generic Geodon) PO SCH ×2 (08:52→10:25)
[2017-11-04] MEDS: Al Hydrox/Mg Hydrox/Simet LIQ* 30 ML UDC PO PRN (10:59)
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
[2017-11-04] MEDS ORDERED: OLANzapine TAB*ODT* 10 MG TAB PO SCH (21:00)
[2017-11-04] MEDS: Lithium Carbonate ER* 450 MG TAB.ER PO SCH (22:50)
[2017-11-05] MEDS: Vitamin THERAPEUTIC TAB PO SCH (07:52)
[2017-11-05] MEDS: Lithium Carbonate ER* 450 MG TAB.ER PO SCH (07:53)
[2017-11-05] MEDS: lamoTRIgine TAB(*) 100 MG PO SCH (07:53)
[2017-11-05 08:11] VITALS: BP 145/89
--- NOTE | 2017-11-05 14:57 | DS ---
AMENDED REPORT NOW INCLUDES COSIGNER DESIGNATION - ESIGNED BEFORE ADJUSTMENTS CC: Dr. Copeland at [facility]; [facility] * DATE OF ADMISSION: 10/22/2017. DATE OF DISCHARGE: 11/05/2017. SUPERVISING PSYCHIATRIST: Dr. Amor Anglin * (dictated by KEVIN Hamilton ). DISCHARGE DIAGNOSES: Bipolar 1 disorder, current episode manic with psychotic features. CONDITION AT THE TIME OF DISCHARGE: Guarded. The patient continues to present as manic. He has been increasingly disorganized, intrusive, and hypersexual. He has been refusing medications or accepting them only in order to spit them out. He has been refusing blood work ordered to monitor [place] level. The patient is euphoric and has impaired insight and judgment. He states understanding of need for longer term hospitalization and has given mental hygiene clearance to be transferred to [facility]. This technical writer and editor spoke with Dr. Parker at [facility] and gave provider to provider report. MENTAL STATUS EXAM: The patient is a large, tall, obese, white male with a quintana and bright pink shirt. He is clean and well-groomed wearing dark rimmed eyeglasses. He is cooperative and giddy. Speech is pressured and rapid. Eye contact is good. He is alerted and oriented times four. Mood is elevated and he has a bright affect. Thought process is tangential. Thought content is significant for delusions, grandiosity, and erotomania. Insight and judgment are impaired. DISCHARGE INSTRUCTIONS: Instructions given to the patient and to the transport team, [facility]. A. Medications: 1. Acetaminophen 650 mg p.o. q.4 hours prn pain or temp over 101 degrees Fahrenheit. 2. MiraLax 30 ml p.o. q.4 hours prn indigestion. 3. Thorazine 100 mg p.o. q.4 hours prn agitation. 4. Lamotrigine 450 mg p.o. daily. 5. [place] Carbonate ER 900 mg p.o. b.i.d. 6. Lorazepam 2 mg p.o. q.4 hours anxiety or agitation. 7. Olanzapine ODT 10 mg p.o. at bedtime. 8. Multivitamin one tab p.o. daily. 9. Zolpidem 5 mg p.o. at bedtime prn insomnia. B. Diet: Regular. C. Activity: Ambulation as tolerated. Tobacco cessation is not applicable. D. Follow-up care: There are no pending labs or diagnostic studies at the time of discharge. E. Substance abuse follow-up: No applicable. HOSPITAL COURSE - PART A: Reason for admission: Alex is a 22-year-old, homosexual, white male who has a history of bipolar 1 disorder. He is an active client of [facility] and lives in the [facility]. On the day of admission, the patient as manic. He was easily distractible, grandiose, and hyperverbal. He overinflated symptoms of PTSD and being triggered. He endorsed having delusion of having multiple personality disorder and he reported that he has had periods of dissociation. The patient was admitted to the Medical floor for monitoring of [place] toxicity and when stabilized transferred to [facility] for voluntary admission. HOSPITAL COURSE - PART B: Psychiatric treatment rendered: Psychiatry was consulted while the patient was on the medical floor and as stated above, the patient was eager to be discharged from the medical floor. He reported wanting to attend to outpatient [facility] program and mental health appointments. He was refusing blood draws for monitoring [place] level. He was agreeable to continue with monitoring of his [place] level on the medical floor in order to pursue transfer to [facility]. The patient was initially admitted to the [facility] on voluntary status. His code status is full. He was placed on 15 minute checks for safety, encouraged to participate in supportive milieu and psychoeducational groups. Medication management included restarting [place] ER at 900 mg b.i.d. He had recently been given a prescription of Saphris from his outpatient psychiatrist and so this medicine was continued as well. The patient continue to present as manic with psychotic delusions. This technical writer and editor collaborated with his outpatient psychiatrist who stated that he had simply given samples to the patient of Saphris and had not necessarily started him on that medication. Dr. Copeland reported that the patient had done well for some time on Quetiapine XR and [place]. The patient was agreeable to use of Quetiapine as Saphris is non- formulary at this hospital. [place] was increased to 900 mg in the morning and 900 mg at night. I also added a 450 mg dose at bedtime to improve lisa. Continue to titrate Quetiapine. The patient was agreeable to blood draw for [place] level on October 30. At this point, the [place] level was 1.53. He had the at bedtime dose that night and resumed [place] ER 900 b.i.d. The patient continued to present as manic with psychotic features. He was intrusive and hypersexual. He and a male peer attempted to rendezvous on the unit; however, by this time the patient was on constant observation for his and unit safety. The patient was increasingly nonadherent to medications. Sometimes he would refuse to take them, sometimes he would take them and then immediately spit them out. [employer] Artistic Director attempted to trial the Ziprasidone as the patient had been stabilized on this medication during his hospital admission one year ago. He primarily refused this medication. We discussed risks and benefits of Olanzapine and the patient agreed to take this medicine due to potential of rapid stabilization. We considered pursing treatment over objection as well as referral to longer term state hospitalization. During the week of November 02, referral was made to state hospitalization and the patient was accepted at [facility]. He had given mental hygiene clearance for this procedure. As stated above, the patient was accepted for transfer on the morning of November 05. Nursing staff and this provider gave report to receiving facility. The patient was transported to the [facility] via [facility] with three male staff present. MIKHAIL BRUNO NP [id number]/[facility]PS #: [id number] CURT
== END 2017-11-05 10:36 | disposition short-term general hospital (02) | DRG 753 ==
LOC: BSU 20:40
PROVIDERS: ADMIT Psychiatry & Neurology Psychiatry; ATTEND Psychiatry & Neurology Psychiatry
PROC: GZHZZZZ Group Psychotherapy (ICD-10-PCS; principal; 2017-10-23)
DX: F31.2 Bipolar disorder, current episode manic severe with psychotic features (principal); Z68.41 Body mass index [BMI] 40.0-44.9, adult; F43.10 Post-traumatic stress disorder, unspecified; Y92.239 Unspecified place in hospital as the place of occurrence of the external cause; T56.891A Toxic effect of other metals, accidental (unintentional), initial encounter; E66.9 Obesity, unspecified; Z81.8 Family history of other mental and behavioral disorders; Z81.1 Family history of alcohol abuse and dependence; Z91.410 Personal history of adult physical and sexual abuse
CPT/HCPCS: 36415; 80053; 80061; 80178; 83036; 85025; A9270-GY; J1200; J1630; J2060

== ENCOUNTER 2018-11-07 10:18 | Inpatient (IN) | payer OTHER ==
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
[2018-11-07] MEDS ORDERED: Acetaminophen TAB* 325 MG PO PRN (17:06)
[2018-11-07] MEDS ORDERED: Al Hydrox/Mg Hydrox/Simet LIQ* 30 ML UDC PO PRN (17:06)
[2018-11-07] MEDS ORDERED: risperiDONE-M * 1 MG TAB.ORADIS ONE (18:36)
[2018-11-07] MEDS ORDERED: diPHENhydraMINE PO* 25 MG ONE (18:36)
[2018-11-07] MEDS ORDERED: lamoTRIgine TAB(*) 100 MG PO SCH (21:00)
[2018-11-07] MEDS ORDERED: diPHENhydraMINE PO* 25 MG PO ONE (23:30)
[2018-11-07] MEDS ORDERED: risperiDONE-M * 1 MG TAB.ORADIS PO ONE (23:30)
[2018-11-08] MEDS: Vitamin THERAPEUTIC TAB PO SCH (08:15)
[2018-11-08] MEDS ORDERED: amLODIPine TAB* 5 MG PO ONE (10:18)
[2018-11-08] MEDS: LORazepam TAB(*) 1 MG PO PRN (11:09)
[2018-11-08 16:07] LABS: Urine Appearance Clear; Urine Bacteria Absent (Absent); Urine Bilirubin Negative (Negative); Urine Blood 1+ (Negative); Urine Color Straw; Urine Glucose Negative (Negative); Urine Ketones Negative (Negative); Urine Nitrite Negative (Negative); Urine Protein Negative (Negative); Urine Red Blood Cell Trace(0-2/hpf) (Absent); Urine Specific Gravity 1.004 (1.010-1.030); Urine Squamous Epithelial Cell Present (Absent); Urine Urobilinogen Negative (Negative); Urine White Blood Cell Trace(0-5/hpf) (Absent)
[2018-11-08] MEDS: lamoTRIgine TAB(*) 100 MG PO SCH (20:13)
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
[2018-11-09] MEDS: Vitamin THERAPEUTIC TAB PO SCH (08:54)
[2018-11-09] MEDS: amLODIPine TAB* 5 MG PO SCH (08:54)
--- NOTE | 2018-11-09 15:04 | PN ---
Subjective - Subjective Date of Service: 11/09/18 Service Type: 24525 Hosp care 25 min moderate complexity Subjective: Patient reports continued elevated mood with racing thoughts. He states that prn dose of lorazepam was helpful until bedtime. He states that he slept well, near 6-7 hours. He declines offer of lithium; agrees to oral supplement of aripiprazole. He denies delusional thinking or psychosis. Objective - General Observations Appearance: Well Groomed Stature: Overweight Posture: WNL Eye Contact: Average Behavior/Activity: WNL - Interaction Observations Attitude Towards Examiner: Cooperative Stated Mood: Elevated Speech Pattern/Tone: Clear, Appropriate, Loud Volume Thought Process: Coherent, Racing Perception: WNL Thought Content: Grandiose Hallucination Type: Denies Delusion Type: Denies - Cognitive Function Orientation: A&O x 4 Level of Consciousness: Alert Cognition: WNL Estimated Intelligence: Normal Insight: WNL Judgment Within Normal Limits: No Ability to Make Reasonable Decisions: Moderately Impaired - Medication Compliance Cooperative with Inpatient Medication Regimen: Yes - Group Participation Participates in Group Activities: Yes Assessment - Assessment Merits Inpatient Hospitalization: For Immediate Safety, For Stabilization Inpatient DSM-V Dx: F31.12 Clinical Impression: 23yo wm, domiciled, mentally disabled who presented to ED with c/o lisa and high risk behaviors. He was hospitalized for a first psychotic break two years ago and again for lisa with psychosis one year ago. He has been active in outpatient treatment and is knowledgeable about warnings signs of psychosis. He merits hospitalization for immediate safety and stabilization. Plan - Plan Treatment Plan: Name: TOMMIE CABRAL Birthdate: 1995 [id number] continue acute intensive psychiatric treatment. may decrease to q30min obs, allow staff pass and computer use. Aripiprazole maintenna IM 400mg given 11/03/18. add oral coverage of 5mg po qhs. Continued Medication Management: Start Medication Medications: Current Medications Acetaminophen (Tylenol Tab*) 650 mg PO Q4H PRN PRN Reason: PAIN or TEMP > 101 F Al Hydrox/Mg Hydrox/Simethicone (Maalox Plus*) 30 ml PO Q4H PRN PRN Reason: INDIGESTION Amlodipine Besylate (Norvasc Tab*) 10 mg PO DAILY FLACO Last Admin: 11/09/18 08:54 Dose: Not Given Aripiprazole (Abilify Tab*) 5 mg PO BEDTIME FLACO Lamotrigine (Lamictal Tab(*)) 200 mg PO BEDTIME FLACO Last Admin: 11/08/18 20:13 Dose: 200 mg Lorazepam (Ativan Tab(*)) 1 mg PO Q4H PRN PRN Reason: agitation/anxiety Last Admin: 11/08/18 11:09 Dose: 1 mg Multivitamins (Theragran Tab*) 1 tab PO DAILY FLACO Last Admin: 11/09/18 08:54 Dose: 1 tab - Discharge Plan Discharge Plan: Inpatient Hospitalization Outpatient Program: [facility]
[2018-11-09] MEDS: LORazepam TAB(*) 1 MG PO PRN (17:23)
[2018-11-09] MEDS: lamoTRIgine TAB(*) 100 MG PO SCH (21:24)
[2018-11-09] MEDS: ARIPiprazole TAB* 5 MG PO SCH (21:24)
[2018-11-10] MEDS: Vitamin THERAPEUTIC TAB PO SCH (08:58)
[2018-11-10] MEDS: amLODIPine TAB* 5 MG PO SCH (08:59)
[2018-11-10 09:16] LABS: ABS Basophils 0 10^3/ul (0-0.2); ABS Eosinophils 0.2 10^3/ul (0-0.6); ABS Lymphocytes 1.1 10^3/ul (1.0-4.8); ABS Monocytes 0.2 10^3/ul (0-0.8); ABS Neutrophils 3.5 10^3/ul (1.5-7.7); ABS Nucleated RBC 0 10^3/ul; Eosinophil % 4.5 %; Hematocrit 46 % (36-46); Hemoglobin 15.4 g/dL (14.0-18.0); Lymphocyte % 21.5 %; Mean Corpuscular HGB Conc 33 g/dL (31-36); Mean Corpuscular Hemoglobin 29 pg (27-31); Mean Corpuscular Volume 86 fL (80-94); Mean Platelet Volume 7.4 fL (7.4-10.4); Nucleated Red Blood Cells % 0; Platelet Count 226 10^3/uL (150-450); Red Blood Count 5.39 10^6 /uL (4.18-5.48); Red Cell Distribution Width 13 % (10.5-15); White Blood Count 5.1 10^3/uL (3.5-10.8)
[2018-11-10 09:39] LABS: Albumin 4.5 g/dL (3.2-5.2); Albumin/Globulin Ratio 1.5 (1-3); BUN/Creatinine Ratio 11.7 (8-20); Calcium 9.6 mg/dL (8.6-10.3); EGFR African American 107.4 (>60); EGFR Non-African American 88.7 (>60); HDL Cholesterol 43.9 mg/dL; Potassium 4.4 mmol/L (3.5-5.0); Total Bilirubin 0.8 mg/dL (0.2-1.0); Total Protein 7.5 g/dL (6.4-8.9)
[2018-11-10] MEDS: LORazepam TAB(*) 1 MG PO PRN ×2 (09:51→16:12)
[2018-11-10 09:53] LABS: TSH (Thyroid Stimulating Horm) 2.27 mcIU/mL (0.34-5.60)
--- NOTE | 2018-11-10 14:21 | PN ---
Subjective - Subjective Date of Service: 11/10/18 Service Type: 29427 Hosp care 15 min low complexity Subjective: Patient lying down, pleasant upon approach. He reports feeling more calm and closer to baseline. He inquires about discharge planning and prn medication for lisa. We discuss utilizing prn ativan, sparingly for up to one week and he agrees. He states intent to continue with oral dose of aripiprazole as adjunct to injectable, until meeting with outpatient psychiatrist. Patient notified of elevated triglycerides and hgba1c. He reports eating breakfast prior to blood draw and agrees to repeat in am for fasting data. He states he has not been taking amlodipine since the first one time dose. He is notified of risks of HTN and encouraged to follow up with PCP, Dr Poon. Objective - General Observations Appearance: Well Groomed Stature: Overweight Posture: Other (See Comment) - lying down Eye Contact: Average Behavior/Activity: WNL - Interaction Observations Attitude Towards Examiner: Cooperative Stated Mood: Euthymic Affect: Full Speech Pattern/Tone: Clear, Appropriate, Normal Volume Thought Process: Coherent Perception: WNL Thought Content: WNL Hallucination Type: Denies Delusion Type: Denies - Cognitive Function Orientation: A&O x 4 Level of Consciousness: Alert Cognition: WNL Insight: WNL Judgment Within Normal Limits: Yes - Medication Compliance Cooperative with Inpatient Medication Regimen: Yes - Group Participation Participates in Group Activities: Yes Assessment - Assessment Merits Inpatient Hospitalization: For Immediate Safety, For Stabilization, For Discharge Planning Inpatient DSM-V Dx: F31.12 Clinical Impression: 23yo wm, domiciled, mentally disabled who presented to ED with c/o lisa and high risk behaviors. He was hospitalized for a first psychotic break two years ago and again for lisa with psychosis one year ago. He has been active in outpatient treatment and is knowledgeable about warnings signs of psychosis. He merits hospitalization for immediate safety and discharge planning. Plan - Plan Treatment Plan: Name: TOMMIE CABRAL Birthdate: 1995 [id number] continue acute intensive psychiatric treatment. may decrease to q30min obs, allow staff pass and computer use. Aripiprazole maintenna IM 400mg given 11/03/18. continue oral coverage of 5mg po qhs. tentative discharge 11/11/18. Medications: Current Medications Acetaminophen (Tylenol Tab*) 650 mg PO Q4H PRN PRN Reason: PAIN or TEMP > 101 F Al Hydrox/Mg Hydrox/Simethicone (Maalox Plus*) 30 ml PO Q4H PRN PRN Reason: INDIGESTION Amlodipine Besylate (Norvasc Tab*) 10 mg PO DAILY FLACO Last Admin: 11/10/18 08:59 Dose: Not Given Aripiprazole (Abilify Tab*) 5 mg PO BEDTIME FLACO Last Admin: 11/09/18 21:24 Dose: 5 mg Lamotrigine (Lamictal Tab(*)) 200 mg PO BEDTIME FLACO Last Admin: 11/09/18 21:24 Dose: 200 mg Lorazepam (Ativan Tab(*)) 1 mg PO Q4H PRN PRN Reason: agitation/anxiety Last Admin: 11/10/18 09:51 Dose: 1 mg Multivitamins (Theragran Tab*) 1 tab PO DAILY FLACO Last Admin: 11/10/18 08:58 Dose: 1 tab - Discharge Plan Discharge Plan: Inpatient Hospitalization Outpatient Program: [facility]
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
[2018-11-10 18:56] LABS: Urine Benzodiazepine Screen None Detected (None Detect); Urine Opiates Screen None Detected (None Detect)
[2018-11-10] MEDS: ARIPiprazole TAB* 5 MG PO SCH (20:50)
[2018-11-10] MEDS: lamoTRIgine TAB(*) 100 MG PO SCH (20:50)
[2018-11-11 08:30] VITALS: BP 133/94
[2018-11-11] MEDS: LORazepam TAB(*) 1 MG PO PRN (08:31)
[2018-11-11] MEDS: Vitamin THERAPEUTIC TAB PO SCH (08:31)
[2018-11-11] MEDS: amLODIPine TAB* 5 MG PO SCH (08:32)
--- NOTE | 2018-11-11 11:52 | DCNOTE ---
Subjective - Subjective Service Types: 00630 Hosp DC Day Mgmt complex over 30 min Discharge Date: 11/11/18 Subjective: Patient reports waking up tearful and anxious. He states he is feeling ready to be discharged and is validated for anxiety in regards to transition from hospital to outpatient. He denies SI or urges for self harm. He is well related and denies delusional thought content. Patient is able to identify progress made since last admission. His father is present during meeting with treatment team and agrees with discharge plan. Objective - Appearance Appearance: Obese Dysmorphic Features: No Hygiene: Normal Grooming: Well Kept - Behavior Psychomotor Activities: Normal Exhibits Abnormal Movement: No - Attitude and Relatedness Attitude and Relatedness: Cooperative Eye Contact: Good - Speech Quality: Unpressured Latencies: Normal Quantity: Appropriate - Mood Patient's Decription of Mood: "Good" - Affect Observed Affect: Good Affect Consistent with: Euthymia - Thought Process Patient's Thought Process: Coherent, Goal Directed Thought Content: No Passive Wish, No Suicidal Planning, No Homicidal Ideation, No Paranoid Ideation - Sensorium Experiencing Hallucinations: No, Sensorium is Clear Type of Hallucinations: Visual: No, Auditory: No, Command: No - Level of Consciousness Level of Consciousness: Alert Orientation: Yes Intact, Yes Orientated to Time, Yes Orientated to Place, Yes Orientated to Person - Impulse Control Impulse Control: Intact - Insight and Judgement Insight and Judgement: Good - Group Participation Particating in Group Activities: Yes - Medication Management Medication Management Adherence: Yes DC Assessment - Assessment Clinical Impression: 23yo wm, domiciled, mentally disabled with history of Bipolar I d/o who presented to ED with c/o lisa and high risk behaviors. He was hospitalized for a first psychotic break two years ago and again for lisa with psychosis one year ago. He has been active in outpatient treatment and is knowledgeable about warnings signs of psychosis. Merits Inpatient Hospitalization: No Clear for Discharge: Adequate Clinical Respons, Acceptable Safety Profile Inpatient DSM-V Dx: F31.12 Discharge Planning - Discharge Planning Discharge Plan: Outpatient Follow Up Outpatient Program: [facility] Recommendations for Continuing Care: Medication Management, Psychotherapy, Routine Metabolic Monitoring, Primary Care Followup Medications: Current Medications Amlodipine Besylate (Norvasc Tab*) 10 mg PO DAILY FLACO Last Admin: 11/11/18 08:32 Dose: 10 mg Aripiprazole (Abilify Tab*) 5 mg PO BEDTIME FLACO Last Admin: 11/10/18 20:50 Dose: 5 mg Abilify Maintenna 400mg IM qmonth. Last dose 11/03/18 Lamotrigine (Lamictal Tab(*)) 200 mg PO BEDTIME FLACO Last Admin: 11/10/18 20:50 Dose: 200 mg Lorazepam (Ativan Tab(*)) 1 mg PO Q4H PRN PRN Reason: agitation/anxiety Last Admin: 11/11/18 08:31 Dose: 1 mg Discharge Planning: Prescriptions provided for discharge [x] Yes [] No Follow up care details as per social work arrangements: PCP- Dr Poon 11/11 at 3pm [facility]- Dr Copeland on wednesday 11/15 at 11am [facility] on 11/16 at 11am continue [facility] programming Patient response to discharge plan: [x] eager for discharge [x] agreeable with discharge plan [] ambivalent about discharge [] disagrees with discharge today
--- NOTE | 2018-11-13 01:36 | DS ---
CC: Dr. Edwin Poon; [facility] * DISCHARGE SUMMARY: DATE OF ADMISSION: 11/07/18 DATE OF DISCHARGE: 11/11/18 SUPERVISING PSYCHIATRIST: Dr. Shlomo Garcia.* (DICTATED BY MIKHAIL BRUNO NP) DISCHARGE DIAGNOSES: 1. Bipolar 1 disorder, most recent episode. 2. Hypertension. CONDITION AT TIME OF DISCHARGE: Improved. The patient is well related, euthymic, denies suicidal ideation, delusional though content or passive wish. He denies thoughts of harming self or others. He denies intrusive thoughts or images. His father is present to discuss discharge planning and is agreeable to discharge. The patient is able to identify progress made since last admission. He states he is feeling ready to be discharged and is validated for reports of anxiety in regards to transition from hospital to outpatient setting. He will return home to his apartment through [facility]. MENTAL STATUS EXAM: Alex is a 23-year-old white male, obese, well groomed, and casually dressed in his own clothing. He is pleasant and cooperative and engages in appropriate conversation. He is alert and oriented x3. Eye contact is good. Speech is normal rate, rhythm, and volume and spontaneous. Mood is euthymic with full range of affect. No abnormal psychomotor activity noted. Thought process is logical, goal directed, and coherent. Thought content is negative for suicidal ideation or passive wish. He denies HI or . He denies auditory or visual hallucinations or delusions. There are no perceptual disturbances noted. Insight and judgment are good. Fund of knowledge is excellent. INSTRUCTIONS GIVEN TO PATIENT: A. Medications: 1. Amlodipine 10 mg p.o. daily. 2. Aripiprazole 5 mg p.o. q.h.s. in conjunction with Abilify Maintena 400 mg IM q. month, last dose 11/03/18. 3. Lamotrigine 200 mg p.o. q.h.s. 4. Lorazepam 1 mg p.o. daily p.r.n. agitation or anxiety x1 week. B. Diet: Regular. Low fat. C. Activity: Ambulation as tolerated. Tobacco cessation is not applicable as patient is a nonsmoker. There are no pending labs or diagnostic studies. D. Followup care: The patient will follow up with his primary care provider Dr. Poon and was scheduled for an appointment the afternoon after discharge. [facility]. He will continue with [facility] and [facility] program. He will see [facility] on 11/16/18 at [address] Copeland on 11/15/18, at 11 a.m. E. Substance use followup is not applicable. HOSPITAL COURSE: Part A: Reason for admission: The patient presented to the emergency department self-referred for lisa. He had not been sleeping and engaged in alcohol use which is rare for him. He presented to the hospital due to "not feeling safe." He texted his mother with the same. He was crying inconsolably and his mother kept him on the phone while she was driving to his apartment from 25 minutes away. HISTORY OF PRESENT ILLNESS: Alex is a 23-year-old white male, homosexual, with a history of bipolar I disorder. He is an active client of [facility] and lives in the [facility] of [facility]. He reports feeling warning signs in the past week and is concerned that this could turn into psychosis. He has had 2 previous hospitalizations due to lisa with psychotic features. The patient reports he noticed that he has not been sleeping as well and been waking up with exorbitant amounts of energy. He endorses racing thoughts and pressured speech. He endorses flight of ideas and amish grandiosity. He reports that he has been hypersexual. He denies need for STD testing. He states that he had stopped drinking alcohol since being on psychiatric medications. However, he went out this past weekend and drank to the point of intoxication. The patient states that he has been an active member of [facility] and that this is extremely helpful. He is able to identify warning signs of severe mental illness. He is able to identify coping skills and goal setting. He reports having received his monthly Abilify injectable of 400 mg last week on 11/03/18. He takes lamotrigine 1 mg q.h.s. He denies significant depression since the summer or winter of 2016. He states he has been using light therapy for depression in the wintertime. He denies auditory or visual hallucinations. He is hyperactive, restless with loud pressured speech. He denies suicidal ideation. He denies homicidal or violent ideation. He denies access to firearms or weapons. PSYCHIATRIC TREATMENT RENDERED: The patient was admitted to adult behavioral services on a voluntary status. Code status is full. He was placed on 15- minute checks for safety. This was quickly decreased to 30-minute observations. The patient was allowed staff pass and unit privileges. We discussed the use of another trial of lithium. The patient was hesitant to do so due to concerns of weight gain. Approximately a year ago, he impulsively ingested multiple doses of lithium, trying to quell hypomania. The patient agreed to augment his aripiprazole JONES with oral for the time being especially until he meets with his outpatient psychiatrist again. We increased lamotrigine to 200 mg for improved mood stabilization. He benefited from this. He tolerated this well. The patient reported significant mood lability. He was hesitant to try lorazepam due to fear of it being habit forming. We discussed a brief use of it especially during periods of lisa and he agreed to trial. He reported much efficacy with this medication which he utilized approximately twice a day. As usual, the patient was pleasant to be around and an active participant in programming. He mentioned to various staff members that there was an acquaintance in [facility] who tends to overwhelm him with her "drama." Unfortunately, this person was admitted to this Unit while the patient was here. The patient tolerated this well. He was kind. He was also receptive to suggestions for improved boundary setting. The patient slept well. He reported improvement in sleep from 5 to 6 hours prior to admission to 8 hours, which is what he is accustomed to. LAB DATA OBTAINED DURING HOSPITALIZATION: CBC within normal limits. Chemistry normal. Hemoglobin A1c was 5.7. Glucose was 146, triglycerides 204. However, this was a nonfasting specimen. TSH normal at 2.27. Urinalysis 1+ blood, 2+ leukocyte esterase, squamous epithelial cells present. Toxicology urine drug screen negative. The patient was noted to have elevated blood pressure throughout the stay. He accepted the first dose of amlodipine 10 mg and blood pressure was improved. He did not take the medication for the next 2 days thinking it was unnecessary. After some education with this music writer, he continued this medication and agreed to follow up with his primary care provider , Dr. Poon. As stated above, on day of discharge, the patient reported readiness for discharge. He endorsed some anxiety in regards to discharge and he was validated and informed that this was good insight. He met with geriatric social work professor, music writer, and his father on day of discharge. We discussed discharge planning, safety planning, and means restriction. The patient and his father were encouraged to call with any question or concern after hospitalization. The patient stated that this was a very positive experience in that he was here voluntarily and he was coherent throughout the admission. MIKHAIL BRUNO, GERARD [id number]/CPS #: [id number] CURT
== END 2018-11-11 12:00 | disposition home or self-care (01) | DRG 753 ==
LOC: ED 10:18 → BSU 17:04
PROVIDERS: ADMIT Psychiatry & Neurology Psychiatry; ATTEND Psychiatry & Neurology Psychiatry
PROC: GZHZZZZ Group Psychotherapy (ICD-10-PCS; principal; 2018-11-11)
DX: F31.12 Bipolar disorder, current episode manic without psychotic features, moderate (principal); Z68.41 Body mass index [BMI] 40.0-44.9, adult; F41.9 Anxiety disorder, unspecified; F90.9 Attention-deficit hyperactivity disorder, unspecified type; F43.10 Post-traumatic stress disorder, unspecified; F50.81 Binge eating disorder; I10 Essential (primary) hypertension; E66.9 Obesity, unspecified; Z81.8 Family history of other mental and behavioral disorders; Z72.89 Other problems related to lifestyle
CPT/HCPCS: 36415; 80053; 80061; 80307; 81003; 81015; 83036; 84443; 85025; 87086; 90853; 99222; 99231; 99232; 99238; 99284; A9270-GY

== ENCOUNTER 2019-07-02 00:54 | Inpatient (IN) | payer OTHER ==
[2019-07-02 02:50] LABS: Acetaminophen < 15 mcg/mL; Alcohol < 10 mg/dL (<10); Salicylate < 2.50 mg/dL (<30)
[2019-07-02 03:02] LABS: Albumin 4.7 g/dL (3.2-5.2); CO2 Carbon Dioxide 18 mmol/L (22-32); Calcium 9.5 mg/dL (8.6-10.3); Chloride 106 mmol/L (101-111); Sodium 136 mmol/L (135-145)
[2019-07-02 03:09] LABS: ALT 44 U/L (7-52); Albumin/Globulin Ratio 1.7 (1-3); Alkaline Phosphatase 95 U/L (34-104); BUN/Creatinine Ratio 15.1 (8-20); Blood Urea Nitrogen 16 mg/dL (6-24); EGFR Non-African American 85.1 (>60); Globulin 2.8 g/dL (2-4); Glucose 147 mg/dL (70-100); Total Protein 7.5 g/dL (6.4-8.9)
[2019-07-02 03:15] LABS: Anion Gap 12 mmol/L (2-11)
[2019-07-02 04:07] LABS: ABS Eosinophils 0.2 10^3/ul (0-0.6); ABS Lymphocytes 1.9 10^3/ul (1.0-4.8); ABS Monocytes 0.7 10^3/ul (0-0.8); ABS Neutrophils 5.1 10^3/ul (1.5-7.7); Eosinophil % 2.5 %; Hematocrit 43 % (42-52); Hemoglobin 14.4 g/dL (14.0-18.0); Mean Corpuscular HGB Conc 33 g/dL (31-36); Mean Corpuscular Hemoglobin 29 pg (27-31); Mean Corpuscular Volume 87 fL (80-94); Mean Platelet Volume 7.5 fL (7.4-10.4); Platelet Count 260 10^3/uL (150-450); Red Blood Count 4.95 10^6 /uL (4.18-5.48); Red Cell Distribution Width 13 % (10-15)
[2019-07-02 04:10] LABS: Urine Appearance Clear; Urine Bilirubin Negative (Negative); Urine Blood Negative (Negative); Urine Color Yellow; Urine Glucose Negative (Negative); Urine Ketones Trace (Negative); Urine Nitrite Negative (Negative); Urine Protein Negative (Negative); Urine Specific Gravity 1.028 (1.010-1.030); Urine Urobilinogen Negative (Negative)
[2019-07-02 04:13] LABS: Urine Bacteria Absent (Absent); Urine Red Blood Cell 1+(3-5/hpf) (Absent); Urine Squamous Epithelial Cell Present (Absent); Urine White Blood Cell 2+(11-20/hpf) (Absent)
--- NOTE | 2019-07-02 04:19 | ED ---
Psychiatric Complaint - HPI Summary HPI Summary: This pt is a 24 Y/O M brought [facility] by his father for a manic episode per his father. The pt states that he closed off his energy field and stated that he wanted to trance in front of him. He states that he wanted his father to talk about his inner truth. The pt states that he repeatedly said no and stated that his father said I need an evaluation. He states that he completed a ritual to cleanse his fathers aura and states that his father needs a psychiatric eval. He states that he has done a lot of healing and has started ascending and decided to be evaluated to convince his father to be evaluated. He states that he has no eaten or slept in 30 hours. He states that he wants a spiritual evaluation. He states that he took his medications at 0800 yesterday. He states that he has been forgetting to take care of his physical needs due to the level of healing and his journey that he has been on. He states that he is the most lucid person in [place]. He states that he attempted to heal a woman that he saw acting psychotic in the streets and stated that when he tried to help her she started playing a guitar and a light began to glow from her eyes and love languaged to her and healed her. He states that he has been doing so much wonderful stuff and has a lot of enhanced abilities and that is why he hasnt been eating or sleeping. His father states that he has been hallucinating and has not been taking his medications. He has no alleviating factors. He denies any SI, HI, fevers, N/V, and headaches. He has a PMHx of Bipolar Disorder, PTSD, and Anxiety. - History Of Current Complaint Chief Complaint: EDMentalHealth Time Seen by Provider: 07/02/19 01:13 Hx Obtained From: Patient Onset/Duration: Gradual Onset, Still Present Timing: Constant Severity Initially: Moderate Severity Currently: Severe Character: Manic Aggravating Factor(s): Medication Non-compliance Alleviating Factor(s): Nothing Associated Signs And Symptoms: Positive: Hallucinating Related History: Positive For: Prior Psychiatric Issues Has Suicidal: Denies: Thoughts, With A Plan Has Homicidal: Denies: Thoughts, With A Plan - Allergies/Home Medications Allergies/Adverse Reactions: Allergies Allergy/AdvReac Type Severity Reaction Status Date / Time No Known Allergies Allergy Verified 07/02/19 01:01 Home Medications: Home Medications ARIPiprazole TAB* [Abilify TAB*] 15 mg PO DAILY 07/02/19 [History Confirmed 02/11] Divalproex ER TAB(*) 1,500 mg PO BEDTIME 07/02/19 [History Confirmed 07/02/19] Landrum Carbonate ER (NF) 300 mg PO DAILY 07/02/19 [History Confirmed 07/02/19] PMH/Surg Hx/FS Hx/Imm Hx Previously Healthy: Yes Endocrine/Hematology History: Denies: Hx Diabetes Cardiovascular History: Denies: Hx Hypertension GI History: Reports: Other GI Disorders - Diarrhea/Constipation Sensory History: Reports: Hx Contacts or Glasses Denies: Hx Hearing Aid Opthamlomology History: Reports: Hx Contacts or Glasses Psychiatric History: Reports: Hx Anxiety, Hx Attention Deficit Hyperactivity Disorder, Hx Eating Disorder - Binge, Hx Depression, Hx Post Traumatic Stress Disorder, Hx Inpatient Treatment - [facility] x [facility], Hx Community Mental Health Tx - [facility] and [facility], Hx Bipolar Disorder, Hx of Violent Episodes Against Others, Hx Substance Abuse - "Marijuana" Denies: Hx Suicide Attempt - Cancer History Hx Chemotherapy: No Hx Radiation Therapy: No - Surgical History Surgical History: None - Immunization History Immunizations Up to Date: Yes Infectious Disease History: No Infectious Disease History: Denies: Traveled Outside the [place] in Last 30 Days - Family History Known Family History: Negative: Cardiac Disease, Hypertension - Social History Occupation: Unemployed Lives: Alone Alcohol Use: None Hx Substance Use: Yes Substance Use Type: Reports: Marijuana Substance Use Comment - Amount & Last Used: States that he quit Hx Tobacco Use: No Smoking Status (MU): Never Smoked Tobacco Amount Used/How Often: pt has used no tobacco products in last 30 days. Review of Systems - ROS Summary Review of Systems Summary: Home Medications Medication Instructions Recorded Confirmed Type LORazepam TAB(*) [Ativan 1 MG TAB 1 mg PO DAILY PRN #7 tab MDD 1 tab 11/11/18 Rx (*)] Divalproex ER TAB(*) 500 mg 07/02/19 History Landrum Carbonate ER (NF) 07/02/19 History Negative: Fever Negative: Vomiting, Nausea Negative: Headache Psychological: Other - POSITIVE: hallucinating, manic per father Positive: Other - NEGATIVE: SI and HI All Other Systems Reviewed And Are Negative: Yes Physical Exam - Summary Physical Exam Summary: General: Well-developed, morbidly obese male. No acute distress. HEENT: Normocephalic, Atraumatic. Eyes: Conjuctiva normal, PERRL. Ears: TMs within normal limits. Nares: (-) discharge, (-) erythema. Oropharynx: Clear, mucous membranes moist, (-) exudates. Neck: Soft, FROM, (-) lymphadenopathy, (-) thyromegaly, (-) JVD. Cardiovascular: Normal sinus rhythm, (-) murmur. Lungs: Clear to auscultation bilaterally (-) wheezes, (-) rales, (-) rhonchi. Abdomen: Soft, non-tender, non-distended, (-) organomegaly, normal bowel sounds. Back: (-) CVA tenderness Extremities: No edema. Skin: Warm, dry, (-) rash. Neuro: Alert and oriented x3, no focal deficits. Psychiatric: tangential thinking, pressured speech, delusions of spiritual healing. Animated and manic appearing. Triage Information Reviewed: Yes Vital Signs On Initial Exam: Initial Vitals Temp Pulse Resp BP Pulse Ox 96.4 F 102 20 146/108 100 07/02/19 00:55 07/02/19 00:55 07/02/19 00:55 07/02/19 00:55 07/02/19 00:55 Vital Signs Reviewed: Yes Procedures - Sedation Patient Received Moderate/Deep Sedation with Procedure: No Diagnostics - Vital Signs Vital Signs Temp Pulse Resp BP Pulse Ox 07/02/19 00:55 96.4 F 102 20 146/108 100 - Laboratory Lab Results: Lab Results 07/02/19 07/02/19 07/02/19 Range/Units 02:13 03:45 03:50 WBC 8.0 (3.5-10.8) 10^3/uL RBC 4.95 (4.18-5.48) 10^6 /uL Hgb 14.4 (14.0-18.0) g/dL Hct 43 (42-52) % MCV 87 (80-94) fL MCH 29 (27-31) pg MCHC 33 (31-36) g/dL RDW 13 (10-15) % Plt Count 260 (150-450) 10^3/uL MPV 7.5 (7.4-10.4) fL Neut % (Auto) 63.6 % Lymph % (Auto) 24.0 % [place] % (Auto) 9.3 % Eos % (Auto) 2.5 % Baso % (Auto) 0.6 % Absolute Neuts (auto) 5.1 (1.5-7.7) 10^3/ul Absolute Lymphs (auto) 1.9 (1.0-4.8) 10^3/ul Absolute Monos (auto) 0.7 (0-0.8) 10^3/ul Absolute Eos (auto) 0.2 (0-0.6) 10^3/ul Absolute Basos (auto) 0.0 (0-0.2) 10^3/ul Absolute Nucleated RBC 0.0 10^3/ul Nucleated RBC % 0.0 Sodium 136 (135-145) mmol/L Potassium TNP Chloride 106 (101-111) mmol/L Carbon Dioxide 18 L (22-32) mmol/L Anion Gap 12 H (2-11) mmol/L BUN 16 (6-24) mg/dL Creatinine 1.06 (0.67-1.17) mg/dL Est GFR ( Amer) 103.0 (>60) Est GFR (Non-Af Amer) 85.1 (>60) BUN/Creatinine Ratio 15.1 (8-20) Glucose 147 H (70-100) mg/dL Calcium 9.5 (8.6-10.3) mg/dL Total Bilirubin 0.60 (0.2-1.0) mg/dL AST TNP ALT 44 (7-52) U/L Alkaline Phosphatase 95 (34-104) U/L Total Protein 7.5 (6.4-8.9) g/dL Albumin 4.7 (3.2-5.2) g/dL Globulin 2.8 (2-4) g/dL Albumin/Globulin Ratio 1.7 (1-3) TSH Cancelled Urine Color Yellow Urine Appearance Clear Urine pH 6.0 (5-9) Ur Specific Paradis 1.028 (1.010-1.030) Urine Protein Negative (Negative) Urine Ketones Trace A (Negative) Urine Blood Negative (Negative) Urine Nitrate Negative (Negative) Urine Bilirubin Negative (Negative) Urine Urobilinogen Negative (Negative) Ur Leukocyte Esterase 2+ A (Negative) Urine WBC (Auto) 2+(11-20/hpf) A (Absent) Urine RBC (Auto) 1+(3-5/hpf) A (Absent) Ur Squamous Epith Cells Present A (Absent) Urine Bacteria Absent (Absent) Urine Glucose Negative (Negative) Salicylates < 2.50 (<30) mg/dL Acetaminophen < 15 mcg/mL Valproic Acid 39.0 L (50-100) mcg/mL Landrum 0.10 L (0.6-1.2) mmol/L Serum Alcohol < 10 (<10) mg/dL Result Diagrams: 07/02/19 03:50 07/02/19 03:50 Lab Statement: Any lab studies that have been ordered have been reviewed, and results considered in the medical decision making process. Course/Dx - Course Course Of Treatment: 24-year-old male with acute manic episode. Not taking his medication. Patient has been calm and cooperative during his stay thus far. This pt is a sign out to Dr. Fermin from Dr. Medina at shift change 0700 07/02/19 pending a MHE and disposition. - Differential Dx/Clinical Impression Provider Diagnosis: Bipolar disorder with severe lisa Discharge ED - Sign-Out/Discharge Documenting (check all that apply): Sign-Out Patient Signing out patient TO: Holden Fermin - Discharge Plan Condition: Stable Disposition: ADMITTED TO [facility] - Billing Disposition and Condition Condition: STABLE Disposition: Admitted to [facility] - Attestation Statements Document Initiated by Scrcheye: Yes Documenting Scribe: Anjel Peace Provider For Whom Liat is Documenting (Include Credential): Hien Medina MD Scribe Attestation: Anjel Mccord, scribed for Hien Medina MD on 07/02/19 at 1932. Scribe Documentation Reviewed: Yes Provider Attestation: The documentation as recorded by the Anjel norton accurately reflects the service I personally performed and the decisions made by me, Hien Medina MD Status of Scribe Document: Viewed
[2019-07-02 04:23] LABS: Potassium Redraw 3.8 mmol/L (3.5-5.0)
[2019-07-02 04:28] LABS: Urine Benzodiazepine Screen None Detected (None Detect); Urine Opiates Screen None Detected (None Detect)
[2019-07-02 04:39] LABS: TSH (Thyroid Stimulating Horm) 2.9 mcIU/mL (0.34-5.60)
--- NOTE | 2019-07-02 07:16 | ED ---
Progress - Progress Note Progress Note: This pt is a sign out to Dr. Fermin from Dr. Medina at shift change 0700 07/02/19 pending a MHE and disposition. Course/Dx - Course Course Of Treatment: This pt is a sign out to Dr. Fermin from Dr. Medina at shift change 0700 07/02/19 pending a MHE and disposition. . Patient was evaluated by the and Dr. Garcia from psychiatry and he recommends admission to his services for further workup and management. It's a voluntary admission for bipolar disorder. - Diagnoses Provider Diagnoses: Bipolar disorder with severe lisa Discharge ED - Sign-Out/Discharge Documenting (check all that apply): Patient Departure - admit All imaging exams completed and their final reports reviewed: Yes - Discharge Plan Condition: Stable Disposition: ADMITTED TO [facility] - Billing Disposition and Condition Condition: STABLE Disposition: Admitted to [facility] - Attestation Statements Document Initiated by Scribe: Yes Documenting Scribe: Irma Segovia Provider For Whom Scribe is Documenting (Include Credential): Dr. Holden Fermin MD Scribe Attestation: Irma Mccord scribed for Dr. Holden Fermin MD on 07/03/19 at 1854. Scribe Documentation Reviewed: Yes Provider Attestation: The documentation as recorded by the Irma norton accurately reflects the service I personally performed and the decisions made by me, Dr. Holden Fermin MD Status of Scribe Document: Viewed
[2019-07-02] MEDS ORDERED: hydrOXYzine HCL TAB* 50 MG PO ONE (10:54)
[2019-07-02] MEDS ORDERED: diPHENhydraMINE PO* 50 MG PO PRN (11:01)
[2019-07-02] MEDS ORDERED: Haloperidol TAB* 5 MG PO PRN (11:01)
[2019-07-02] MEDS: LORazepam TAB(*) 1 MG PO PRN (11:39)
[2019-07-02] MEDS ORDERED: Divalproex ER TAB(*) 500 MG PO SCH (21:00)
[2019-07-02] MEDS ORDERED: Haloperidol INJ IV/IM* 5 MG/ML AMP IM ONE (21:30)
[2019-07-02] MEDS ORDERED: LORazepam INJ* 2 MG/ML 1 ML VIAL IM ONE (21:30)
[2019-07-02] MEDS ORDERED: diPHENhydraMINE IV* 50 MG/ML 1 ml VIAL (BENADRYL) IM ONE (21:30)
[2019-07-02] MEDS ORDERED: Lorazepam PYXIS KEY ONE (21:33)
[2019-07-02] MEDS ORDERED: diPHENhydraMINE IV* 50 MG/ML 1 ml VIAL (BENADRYL) ONE (21:34)
[2019-07-02] MEDS ORDERED: LORazepam INJ* 2 MG/ML 1 ML VIAL ONE (21:34)
[2019-07-02] MEDS ORDERED: Haloperidol INJ IV/IM* 5 MG/ML AMP ONE (21:35)
[2019-07-02] MEDS: Lithium Carbonate TAB* 300 MG PO SCH (22:19)
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
[2019-07-03] MEDS: ARIPiprazole TAB* 15 MG PO SCH (12:22)
[2019-07-03] MEDS: Lithium Carbonate TAB* 300 MG PO SCH ×2 (12:23→18:00)
[2019-07-03] MEDS: Vitamin THERAPEUTIC TAB PO SCH (12:23)
[2019-07-03] MEDS: Divalproex ER TAB(*) 500 MG PO SCH (17:59)
[2019-07-04] MEDS ORDERED: OLANzapine TAB*ODT* 5 MG PO PRN (10:19)
[2019-07-04] MEDS: ARIPiprazole TAB* 15 MG PO SCH (11:23)
[2019-07-04] MEDS: Lithium Carbonate TAB* 300 MG PO SCH ×2 (11:23→17:22)
[2019-07-04] MEDS: Vitamin THERAPEUTIC TAB PO SCH (11:23)
--- NOTE | 2019-07-04 12:24 | PN ---
Subjective - Subjective Date of Service: 07/04/19 Service Type: 75689 Hosp care 35 min high complexity Subjective: Nursing Report: Patient was visible on unit, multiple behavioral incidents requiring use of anti-psychotic medications. CC: "I dont want to talk" Patient was seen and evaluated in the common room he was seen pacing. The patient reported that he did not want to talk and would like to be left alone. The patient was intrusive with peers and staff and was unable to follow re- direction and became aggressive and received IM of 10mg zyprexa The patients parents visited over the weekend. Objective - General Observations Appearance: Disheveled Appears Stated Age: Yes Stature: Overweight Posture: Tense Eye Contact: Avoidant Behavior/Activity: Peculiar - Interaction Observations Attitude Towards Examiner: Uncooperative Stated Mood: Anxious Affect: Restricted Speech Pattern/Tone: Excessive Thought Process: Impoverished Perception: WNL Thought Content: Grandiose Hallucination Type: Denies Delusion Type: Grandeur - Cognitive Function Orientation: A&O x 4 Level of Consciousness: Awake Ability to Make Reasonable Decisions: Serverely Impaired - Medication Compliance Cooperative with Inpatient Medication Regimen: Partial - Group Participation Participates in Group Activities: No Assessment - Assessment Merits Inpatient Hospitalization: For Immediate Safety Clinical Impression: 24 year old with history of bipolar disorder and PTSD brought to the hospital by his father after showing signs of lisa and behavioral changes Plan - Plan Treatment Plan: Name: TOMMIE CABRAL Birthdate: 1995 [id number] #Constant observation while awake # The patient requires psychiatric inpatient admission at this time to assure safety, receive treatment and work toward stabilization. # EKG ordered for risk of QT prolongation of antipsychotic medication. # Obtain collateral information once release is signed. # Collaboration with Social Work #Follows up at [facility] # [place] level 0.1 # Patient is voluntary and put in 72 hour notice will notify court of retention hearing # Valproic acid level 39 # PTSD - recommend CBT trauma focused # Obtain previous records and date of last Abilify long acting injection #Goals before discharge include: psychiatric stabilization Tentative Discharge: Pending psychiatric stabilization The risks, benefits, and alternative treatment options were discussed as well as the risks of refusing treatment. After this discussion and an acknowledgement of this understanding was made. A risk/ benefit assessment of treatment was considered and discussed with the patient. When comparing the risks of treatment with the dangers of not receiving treatment, the benefits of treatment outweigh the treatment risks at this time. Risks of allergy, suicidal ideation, behavioral changes, dystonia, rashes, electrolyte imbalances, movement disorders, cardiac conduction changes, serotonin syndrome, metabolic risks and NMS were among some of the risks discussed. 07/02/19 07/02/19 07/02/19 02:13 03:45 03:45 WBC RBC Hgb Hct MCV MCH MCHC RDW Plt Count MPV Neut % (Auto) Lymph % (Auto) [place] % (Auto) Eos % (Auto) Baso % (Auto) Absolute Neuts (auto) Absolute Lymphs (auto) Absolute Monos (auto) Absolute Eos (auto) Absolute Basos (auto) Absolute Nucleated RBC Nucleated RBC % Sodium 136 Potassium TNP Chloride 106 Carbon Dioxide 18 L Anion Gap 12 H BUN 16 Creatinine 1.06 Est GFR ( Amer) 103.0 Est GFR (Non-Af Amer) 85.1 BUN/Creatinine Ratio 15.1 Glucose 147 H Calcium 9.5 Total Bilirubin 0.60 AST TNP ALT 44 Alkaline Phosphatase 95 Total Protein 7.5 Albumin 4.7 Globulin 2.8 Albumin/Globulin Ratio 1.7 TSH Cancelled Urine Color Yellow Urine Appearance Clear Urine pH 6.0 Ur Specific [place] 1.028 Urine Protein Negative Urine Ketones Trace A Urine Blood Negative Urine Nitrate Negative Urine Bilirubin Negative Urine Urobilinogen Negative Ur Leukocyte Esterase 2+ A Urine WBC (Auto) 2+(11-20/hpf) A Urine RBC (Auto) 1+(3-5/hpf) A Ur Squamous Epith Cells Present A Urine Bacteria Absent Urine Glucose Negative Salicylates < 2.50 Urine Opiates Screen None detected Acetaminophen < 15 Ur Barbiturates Screen None detected Valproic Acid 39.0 L Ur Phencyclidine Scrn None detected Ur Amphetamines Screen None detected U Benzodiazepines Scrn None detected [place] 0.10 L Urine Cocaine Screen None detected U Cannabinoids Screen None detected Serum Alcohol < 10 07/02/19 07/02/19 03:50 03:50 WBC 8.0 RBC 4.95 Hgb 14.4 Hct 43 MCV 87 MCH 29 MCHC 33 RDW 13 Plt Count 260 MPV 7.5 Neut % (Auto) 63.6 Lymph % (Auto) 24.0 [place] % (Auto) 9.3 Eos % (Auto) 2.5 Baso % (Auto) 0.6 Absolute Neuts (auto) 5.1 Absolute Lymphs (auto) 1.9 Absolute Monos (auto) 0.7 Absolute Eos (auto) 0.2 Absolute Basos (auto) 0.0 Absolute Nucleated RBC 0.0 Nucleated RBC % 0.0 Sodium Potassium 3.8 Chloride Carbon Dioxide Anion Gap BUN Creatinine Est GFR ( Amer) Est GFR (Non-Af Amer) BUN/Creatinine Ratio Glucose Calcium Total Bilirubin AST 49 H ALT Alkaline Phosphatase Total Protein Albumin Globulin Albumin/Globulin Ratio TSH 2.90 Urine Color Urine Appearance Urine pH Ur Specific [place] Urine Protein Urine Ketones Urine Blood Urine Nitrate Urine Bilirubin Urine Urobilinogen Ur Leukocyte Esterase Urine WBC (Auto) Urine RBC (Auto) Ur Squamous Epith Cells Urine Bacteria Urine Glucose Salicylates Urine Opiates Screen Acetaminophen Ur Barbiturates Screen Valproic Acid Ur Phencyclidine Scrn Ur Amphetamines Screen U Benzodiazepines Scrn [place] Urine Cocaine Screen U Cannabinoids Screen Serum Alcohol Continued Medication Management: Continue Outpt Medication Medications: Current Medications Acetaminophen (Tylenol Tab*) 650 mg PO Q4H PRN PRN Reason: PAIN or TEMP > 101 F Al Hydrox/Mg Hydrox/Simethicone (Maalox Plus*) 30 ml PO Q4H PRN PRN Reason: INDIGESTION Aripiprazole (Abilify Tab*) 15 mg PO DAILY ON LICENSE OF [facility] Last Admin: 07/04/19 11:23 Dose: Not Given Diphenhydramine HCl (Benadryl Po*) 50 mg PO Q4H PRN PRN Reason: AGITATION Divalproex Sodium (Depakote Er Tab(*)) 1,500 mg PO 1800 ON LICENSE OF [facility] Last Admin: 07/03/19 17:59 Dose: 1,500 mg Haloperidol (Haldol Tab*) 5 mg PO Q4H PRN PRN Reason: .AGITATION [place] Carbonate ([place] Carbonate Tab*) 300 mg PO 0600,1800 ON LICENSE OF [facility] Last Admin: 07/04/19 11:23 Dose: Not Given Lorazepam (Ativan Tab(*)) 2 mg PO Q4H PRN PRN Reason: AGITATION Last Admin: 07/02/19 11:39 Dose: 2 mg Multivitamins (Theragran Tab*) 1 tab PO DAILY ON LICENSE OF [facility] Last Admin: 07/04/19 11:23 Dose: Not Given Olanzapine (Zyprexa * Tab Odt) 10 mg PO Q6H PRN PRN Reason: AGITATION - Discharge Plan Discharge Plan: Inpatient Hospitalization
[2019-07-04] MEDS: Divalproex ER TAB(*) 500 MG PO SCH (17:21)
[2019-07-05] MEDS ORDERED: Haloperidol INJ IV/IM* 5 MG/ML AMP IM ONE (02:40)
[2019-07-05] MEDS ORDERED: LORazepam INJ* 2 MG/ML 1 ML VIAL IM ONE (02:40)
[2019-07-05] MEDS ORDERED: diPHENhydraMINE IV* 50 MG/ML 1 ml VIAL (BENADRYL) IM ONE (02:40)
[2019-07-05] MEDS ORDERED: diPHENhydraMINE IV* 50 MG/ML 1 ml VIAL (BENADRYL) ONE (02:48)
[2019-07-05] MEDS ORDERED: Haloperidol INJ IV/IM* 5 MG/ML AMP ONE (02:48)
[2019-07-05] MEDS ORDERED: LORazepam INJ* 2 MG/ML 1 ML VIAL ONE (02:49)
[2019-07-05] MEDS ORDERED: Lorazepam PYXIS KEY ONE (02:50)
[2019-07-05] MEDS ORDERED: Lorazepam PYXIS KEY PRN (03:18)
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
[2019-07-05] MEDS: Vitamin THERAPEUTIC TAB PO SCH (09:05)
[2019-07-05] MEDS: Lithium Carbonate TAB* 300 MG PO SCH ×3 (10:18→22:55)
[2019-07-05] MEDS: ARIPiprazole TAB* 15 MG PO SCH (10:18)
[2019-07-05] MEDS: Divalproex ER TAB(*) 500 MG PO SCH ×2 (22:30→22:54)
[2019-07-06] MEDS: Vitamin THERAPEUTIC TAB PO SCH (08:02)
[2019-07-06] MEDS: Lithium Carbonate TAB* 300 MG PO SCH (08:03)
[2019-07-06] MEDS: ARIPiprazole TAB* 15 MG PO SCH (08:03)
--- NOTE | 2019-07-06 10:36 | PN ---
Subjective - Subjective Date of Service: 07/06/19 Service Type: 73114 Hosp care 35 min high complexity Subjective: CC: "I want to be discharged" Patient was seen and evaluated in the common room. The patient is demanding to use the comfort room and go outside. Patient has been refusing medications and unable to follow re- direction. His father visited last evening. Per report the patient has been intrusive with staff and other peers and slept 2 hours last night. Objective - General Observations Appearance: Disheveled Appears Stated Age: Yes Stature: Overweight Posture: Tense Eye Contact: Intense Behavior/Activity: Peculiar - Interaction Observations Attitude Towards Examiner: Uncooperative Stated Mood: Elevated Affect: Restricted Speech Pattern/Tone: Excessive Thought Process: Flight of Ideas Perception: Derealization Thought Content: Preoccupation/Ruminations Hallucination Type: Denies Delusion Type: Grandeur - Cognitive Function Orientation: A&O x 4 Level of Consciousness: Awake Judgment Within Normal Limits: No Ability to Make Reasonable Decisions: Serverely Impaired - Medication Compliance Cooperative with Inpatient Medication Regimen: Partial - Group Participation Participates in Group Activities: No Assessment - Assessment Merits Inpatient Hospitalization: For Immediate Safety Clinical Impression: 24 year old with history of bipolar disorder and PTSD brought to the hospital by his father after showing signs of lisa and behavioral changes Plan - Plan Treatment Plan: Name: TOMMIE CABRAL Birthdate: 1995 [id number] #Continue Constant observation while awake patient continues to be intrusive and unable to follow re direction # The patient requires psychiatric inpatient admission at this time to assure safety, receive treatment and work toward stabilization. # EKG ordered for risk of QT prolongation of antipsychotic medication. # Obtained collateral information from father who indicated he is not at baseline at present time and describes features when he is unwell that include not socializing, refusing medications, isolating himself. Father confirmed no access to firearms or stockpiles of medications. # Collaboration with Social Work #Follows up at [facility] # [place] level 0.1 # Patient refusing medications Treatment over objection will be filed. # Valproic acid level 39 # Obtain previous records from [facility] #Goals before discharge include: psychiatric stabilization Tentative Discharge: Pending psychiatric stabilization 07/02/19 07/02/19 07/02/19 02:13 03:45 03:45 WBC RBC Hgb Hct MCV MCH MCHC RDW Plt Count MPV Neut % (Auto) Lymph % (Auto) [place] % (Auto) Eos % (Auto) Baso % (Auto) Absolute Neuts (auto) Absolute Lymphs (auto) Absolute Monos (auto) Absolute Eos (auto) Absolute Basos (auto) Absolute Nucleated RBC Nucleated RBC % Sodium 136 Potassium TNP Chloride 106 Carbon Dioxide 18 L Anion Gap 12 H BUN 16 Creatinine 1.06 Est GFR ( Amer) 103.0 Est GFR (Non-Af Amer) 85.1 BUN/Creatinine Ratio 15.1 Glucose 147 H Calcium 9.5 Total Bilirubin 0.60 AST TNP ALT 44 Alkaline Phosphatase 95 Total Protein 7.5 Albumin 4.7 Globulin 2.8 Albumin/Globulin Ratio 1.7 TSH Cancelled Urine Color Yellow Urine Appearance Clear Urine pH 6.0 Ur Specific [place] 1.028 Urine Protein Negative Urine Ketones Trace A Urine Blood Negative Urine Nitrate Negative Urine Bilirubin Negative Urine Urobilinogen Negative Ur Leukocyte Esterase 2+ A Urine WBC (Auto) 2+(11-20/hpf) A Urine RBC (Auto) 1+(3-5/hpf) A Ur Squamous Epith Cells Present A Urine Bacteria Absent Urine Glucose Negative Salicylates < 2.50 Urine Opiates Screen None detected Acetaminophen < 15 Ur Barbiturates Screen None detected Valproic Acid 39.0 L Ur Phencyclidine Scrn None detected Ur Amphetamines Screen None detected U Benzodiazepines Scrn None detected [place] 0.10 L Urine Cocaine Screen None detected U Cannabinoids Screen None detected Serum Alcohol < 10 07/02/19 07/02/19 03:50 03:50 WBC 8.0 RBC 4.95 Hgb 14.4 Hct 43 MCV 87 MCH 29 MCHC 33 RDW 13 Plt Count 260 MPV 7.5 Neut % (Auto) 63.6 Lymph % (Auto) 24.0 [place] % (Auto) 9.3 Eos % (Auto) 2.5 Baso % (Auto) 0.6 Absolute Neuts (auto) 5.1 Absolute Lymphs (auto) 1.9 Absolute Monos (auto) 0.7 Absolute Eos (auto) 0.2 Absolute Basos (auto) 0.0 Absolute Nucleated RBC 0.0 Nucleated RBC % 0.0 Sodium Potassium 3.8 Chloride Carbon Dioxide Anion Gap BUN Creatinine Est GFR ( Amer) Est GFR (Non-Af Amer) BUN/Creatinine Ratio Glucose Calcium Total Bilirubin AST 49 H ALT Alkaline Phosphatase Total Protein Albumin Globulin Albumin/Globulin Ratio TSH 2.90 Urine Color Urine Appearance Urine pH Ur Specific [place] Urine Protein Urine Ketones Urine Blood Urine Nitrate Urine Bilirubin Urine Urobilinogen Ur Leukocyte Esterase Urine WBC (Auto) Urine RBC (Auto) Ur Squamous Epith Cells Urine Bacteria Urine Glucose Salicylates Urine Opiates Screen Acetaminophen Ur Barbiturates Screen Valproic Acid Ur Phencyclidine Scrn Ur Amphetamines Screen U Benzodiazepines Scrn [place] Urine Cocaine Screen U Cannabinoids Screen Serum Alcohol Continued Medication Management: Continue Outpt Medication Medications: Current Medications Acetaminophen (Tylenol Tab*) 650 mg PO Q4H PRN PRN Reason: PAIN or TEMP > 101 F Al Hydrox/Mg Hydrox/Simethicone (Maalox Plus*) 30 ml PO Q4H PRN PRN Reason: INDIGESTION Aripiprazole (Abilify Tab*) 15 mg PO DAILY [facility] Last Admin: 07/06/19 08:03 Dose: Not Given Diphenhydramine HCl (Benadryl Po*) 50 mg PO Q4H PRN PRN Reason: AGITATION Divalproex Sodium (Depakote Er Tab(*)) 1,500 mg PO DAILY@1800 [facility] Last Admin: 07/05/19 22:30 Dose: 1,500 mg [place] Carbonate ([place] Carbonate Tab*) 300 mg PO BID@0600,1800 [facility] Last Admin: 07/06/19 08:03 Dose: Not Given Lorazepam (Ativan Tab(*)) 2 mg PO Q4H PRN PRN Reason: AGITATION Last Admin: 07/02/19 11:39 Dose: 2 mg Miscellaneous (Ativan Pyxis Marcial) 1 ea N/A .PYXIS MARCIAL PRN PRN Reason: PER PROTOCOL Multivitamins (Theragran Tab*) 1 tab PO DAILY [facility] Last Admin: 07/06/19 08:02 Dose: 1 tab Olanzapine (Zyprexa * Tab Odt) 10 mg PO Q6H PRN PRN Reason: AGITATION - Discharge Plan Discharge Plan: Inpatient Hospitalization
[2019-07-06] MEDS: Divalproex ER TAB(*) 500 MG PO SCH (18:11)
[2019-07-06] MEDS ORDERED: ARIPiprazole TAB* 15 MG PO SCH (21:00)
[2019-07-06] MEDS ORDERED: Lithium Carbonate ER* 450 MG TAB.ER PO SCH (21:00)
[2019-07-07] MEDS: Al Hydrox/Mg Hydrox/Simet LIQ* 30 ML UDC PO PRN ×2 (07:20→23:35)
[2019-07-07] MEDS: Vitamin THERAPEUTIC TAB PO SCH (08:47)
--- NOTE | 2019-07-07 11:22 | PN ---
Subjective - Subjective Date of Service: 07/07/19 Service Type: [id number] Hosp care 35 min high complexity Subjective: CC: "I want staff pass" Patient was seen and evaluated in the common room. The patient reported taking medications last evening however record indicated that he refused lithium and abilify. The patient did take depakote with encouragement with family present His father visited last evening. Per staff report the patient has been intrusive with staff and other peers and slept about 2 hours overnight night. Patient was seen talking to himself dancing in the hallway. Objective - General Observations Appearance: Disheveled Appears Stated Age: Yes Stature: Overweight Posture: Slumped Eye Contact: Avoidant Behavior/Activity: Accelerated, Peculiar, Impulsive - Interaction Observations Attitude Towards Examiner: Demanding, Hostile, Mistrustful, Disrespectful Stated Mood: Elevated Affect: Incongruent Speech Pattern/Tone: Excessive Thought Process: Flight of Ideas Perception: Depersonalization Thought Content: Grandiose Hallucination Type: Denies Delusion Type: Thought Broadcasting, Reference, [place] - Cognitive Function Orientation: A&O x 4 Level of Consciousness: Awake Insight: Mostly Blames Others for Problems, Difficulty Acknowledging Presence of Psyciatric Problems Judgment Within Normal Limits: No Ability to Make Reasonable Decisions: Serverely Impaired - Medication Compliance Cooperative with Inpatient Medication Regimen: No - Group Participation Participates in Group Activities: No Assessment - Assessment Merits Inpatient Hospitalization: For Immediate Safety Clinical Impression: 24 year old with history of bipolar disorder and PTSD brought to the hospital by his father after showing signs of lisa and behavioral changes Plan - Plan Treatment Plan: Name: TOMMIE CABRAL Birthdate: 1995 [id number] #Continue Constant observation while awake patient continues to be intrusive and unable to follow re direction # The patient requires psychiatric inpatient admission at this time to assure safety, receive treatment and work toward stabilization. # EKG ordered for risk of QT prolongation of antipsychotic medication. # Obtained collateral information from father who indicated he is not at baseline at present time and describes features when he is unwell that include not socializing, refusing medications, isolating himself. Father confirmed no access to firearms or stockpiles of medications. # Collaboration with Social Work # In effort to increase compliance, may give medications depakote, Saphris , and lithium during visiting hours #Follow up at [facility] # Start patient on home medication Saphris 15mg sublingual at bedtime # [place] level 0.1 # Patient refusing medications Treatment over objection will be filed. Court scheduled for Thursday. # Valproic acid level 39 # Obtain previous records from [facility] #Goals before discharge include: psychiatric stabilization Tentative Discharge: Pending psychiatric stabilization 07/02/19 07/02/19 07/02/19 02:13 03:45 03:45 WBC RBC Hgb Hct MCV MCH MCHC RDW Plt Count MPV Neut % (Auto) Lymph % (Auto) [place] % (Auto) Eos % (Auto) Baso % (Auto) Absolute Neuts (auto) Absolute Lymphs (auto) Absolute Monos (auto) Absolute Eos (auto) Absolute Basos (auto) Absolute Nucleated RBC Nucleated RBC % Sodium 136 Potassium TNP Chloride 106 Carbon Dioxide 18 L Anion Gap 12 H BUN 16 Creatinine 1.06 Est GFR ( Amer) 103.0 Est GFR (Non-Af Amer) 85.1 BUN/Creatinine Ratio 15.1 Glucose 147 H Calcium 9.5 Total Bilirubin 0.60 AST TNP ALT 44 Alkaline Phosphatase 95 Total Protein 7.5 Albumin 4.7 Globulin 2.8 Albumin/Globulin Ratio 1.7 TSH Cancelled Urine Color Yellow Urine Appearance Clear Urine pH 6.0 Ur Specific [place] 1.028 Urine Protein Negative Urine Ketones Trace A Urine Blood Negative Urine Nitrate Negative Urine Bilirubin Negative Urine Urobilinogen Negative Ur Leukocyte Esterase 2+ A Urine WBC (Auto) 2+(11-20/hpf) A Urine RBC (Auto) 1+(3-5/hpf) A Ur Squamous Epith Cells Present A Urine Bacteria Absent Urine Glucose Negative Salicylates < 2.50 Urine Opiates Screen None detected Acetaminophen < 15 Ur Barbiturates Screen None detected Valproic Acid 39.0 L Ur Phencyclidine Scrn None detected Ur Amphetamines Screen None detected U Benzodiazepines Scrn None detected [place] 0.10 L Urine Cocaine Screen None detected U Cannabinoids Screen None detected Serum Alcohol < 10 07/02/19 07/02/19 03:50 03:50 WBC 8.0 RBC 4.95 Hgb 14.4 Hct 43 MCV 87 MCH 29 MCHC 33 RDW 13 Plt Count 260 MPV 7.5 Neut % (Auto) 63.6 Lymph % (Auto) 24.0 [place] % (Auto) 9.3 Eos % (Auto) 2.5 Baso % (Auto) 0.6 Absolute Neuts (auto) 5.1 Absolute Lymphs (auto) 1.9 Absolute Monos (auto) 0.7 Absolute Eos (auto) 0.2 Absolute Basos (auto) 0.0 Absolute Nucleated RBC 0.0 Nucleated RBC % 0.0 Sodium Potassium 3.8 Chloride Carbon Dioxide Anion Gap BUN Creatinine Est GFR ( Amer) Est GFR (Non-Af Amer) BUN/Creatinine Ratio Glucose Calcium Total Bilirubin AST 49 H ALT Alkaline Phosphatase Total Protein Albumin Globulin Albumin/Globulin Ratio TSH 2.90 Urine Color Urine Appearance Urine pH Ur Specific [place] Urine Protein Urine Ketones Urine Blood Urine Nitrate Urine Bilirubin Urine Urobilinogen Ur Leukocyte Esterase Urine WBC (Auto) Urine RBC (Auto) Ur Squamous Epith Cells Urine Bacteria Urine Glucose Salicylates Urine Opiates Screen Acetaminophen Ur Barbiturates Screen Valproic Acid Ur Phencyclidine Scrn Ur Amphetamines Screen U Benzodiazepines Scrn [place] Urine Cocaine Screen U Cannabinoids Screen Serum Alcohol Continued Medication Management: Continue Outpt Medication Medications: Current Medications Acetaminophen (Tylenol Tab*) 650 mg PO Q4H PRN PRN Reason: PAIN or TEMP > 101 F Al Hydrox/Mg Hydrox/Simethicone (Maalox Plus*) 30 ml PO Q4H PRN PRN Reason: INDIGESTION Last Admin: 07/07/19 07:20 Dose: 30 ml Aripiprazole (Abilify Tab*) 15 mg PO BEDTIME [facility] Last Admin: 07/06/19 21:38 Dose: Not Given Diphenhydramine HCl (Benadryl Po*) 50 mg PO Q4H PRN PRN Reason: AGITATION Divalproex Sodium (Depakote Er Tab(*)) 1,500 mg PO DAILY@1800 [facility] Last Admin: 07/06/19 18:11 Dose: 1,500 mg [place] Carbonate ([place] Carbonate Er Tab*) 900 mg PO BEDTIME [facility] Last Admin: 07/06/19 21:39 Dose: Not Given Lorazepam (Ativan Tab(*)) 2 mg PO Q4H PRN PRN Reason: AGITATION Last Admin: 07/02/19 11:39 Dose: 2 mg Miscellaneous (Ativan Pyxis Marcial) 1 ea N/A .PYXIS MARCIAL PRN PRN Reason: PER PROTOCOL Multivitamins (Theragran Tab*) 1 tab PO DAILY [facility] Last Admin: 07/07/19 08:47 Dose: 1 tab Olanzapine (Zyprexa * Tab Odt) 10 mg PO Q6H PRN PRN Reason: AGITATION Olanzapine (Zyprexa Im (Nf)) 10 mg IM ONCE ONE Stop: 07/07/19 11:21 - Discharge Plan Discharge Plan: Inpatient Hospitalization
--- NOTE | 2019-07-07 11:30 | PN ---
BSU: Group Therapy Note - Service Type Service Type: [id number] Group Psychotherapy - Cognitive Behavioral Group Note: Ferdinand entered programming against strenuous and direct verbal prompts to not come into group. He immediately attempted to control the group process, again against verbal prompts to attend to discussion. After accepting direction briefly, he began to assume control of group discussion again, stating "I don't want hear you talk" and required repeated verbal prompts to leave the group, as he is not appropriate for group programming. He laughed inappropriately on several occasions, prompting three peers to leave the group secondary to their frustration in having to tolerate his disrespectful conduct. He presently lacks empathic response to be able to function appropriately in the group therapy context.
[2019-07-07] MEDS: Divalproex ER TAB(*) 500 MG PO SCH (20:33)
[2019-07-07] MEDS: Lithium Carbonate TAB* 300 MG PO SCH (20:38)
[2019-07-07] MEDS: ASENAPINE 10 MG SL SCH (20:38)
[2019-07-08] MEDS: Acetaminophen TAB* 325 MG PO PRN ×2 (07:19→17:55)
[2019-07-08] MEDS: Vitamin THERAPEUTIC TAB PO SCH (10:26)
--- NOTE | 2019-07-08 14:17 | PN ---
Subjective - Subjective Date of Service: 07/08/19 Service Type: [id number] Hosp care 35 min high complexity Subjective: Nursing Report: Patient was visible on unit, demanding and hostile and intrusive with staff and other peers CC: " I want discharge now" Patient was seen and evaluated in the common room. The patient reported he would like to be discharged now. He reported that he has been taking his medications and doesnt want anyone to tell him what to do. Patient received 10mg zyprexa IM after being hostile and unable to respond to re-direction Objective - General Observations Appearance: Disheveled Appears Stated Age: Yes Stature: Overweight Posture: Slumped Eye Contact: Avoidant Behavior/Activity: Accelerated - Interaction Observations Attitude Towards Examiner: Demanding Stated Mood: Elevated Affect: Full Speech Pattern/Tone: Rambling, Excessive, Pressured Thought Process: Flight of Ideas Perception: Depersonalization Thought Content: Grandiose Hallucination Type: None Delusion Type: None - Cognitive Function Orientation: A&O x 4 Level of Consciousness: Awake Ability to Make Reasonable Decisions: Serverely Impaired - Medication Compliance Cooperative with Inpatient Medication Regimen: Partial - Group Participation Participates in Group Activities: No Assessment - Assessment Merits Inpatient Hospitalization: For Immediate Safety Clinical Impression: 24 year old with history of bipolar disorder and PTSD brought to the hospital by his father after showing signs of lisa and behavioral changes Plan - Plan Treatment Plan: Name: TOMMIE CABRAL Birthdate: 1995 [id number] #Continue Constant observation while awake patient continues to be intrusive and unable to follow re direction # The patient requires psychiatric inpatient admission at this time to assure safety, receive treatment and work toward stabilization. # EKG ordered for risk of QT prolongation of antipsychotic medication. # Obtained collateral information from father who indicated he is not at baseline at present time and describes features when he is unwell that include not socializing, refusing medications, isolating himself. Father confirmed no access to firearms or stockpiles of medications. # Collaboration with Social Work # In effort to increase compliance, may give medications depakote, Saphris , and lithium during visiting hours #Follow up at [facility] # Start patient on home medication Saphris 15mg sublingual at bedtime # [place] level 0.1 # Patient continues to refuse medications Treatment over objection paperwork completed. Court scheduled for Thursday. # Valproic acid level 39 # Obtain previous records from [facility] #Goals before discharge include: psychiatric stabilization Tentative Discharge: Pending psychiatric stabilization 07/02/19 07/02/19 07/02/19 02:13 03:45 03:45 WBC RBC Hgb Hct MCV MCH MCHC RDW Plt Count MPV Neut % (Auto) Lymph % (Auto) [place] % (Auto) Eos % (Auto) Baso % (Auto) Absolute Neuts (auto) Absolute Lymphs (auto) Absolute Monos (auto) Absolute Eos (auto) Absolute Basos (auto) Absolute Nucleated RBC Nucleated RBC % Sodium 136 Potassium TNP Chloride 106 Carbon Dioxide 18 L Anion Gap 12 H BUN 16 Creatinine 1.06 Est GFR ( Amer) 103.0 Est GFR (Non-Af Amer) 85.1 BUN/Creatinine Ratio 15.1 Glucose 147 H Calcium 9.5 Total Bilirubin 0.60 AST TNP ALT 44 Alkaline Phosphatase 95 Total Protein 7.5 Albumin 4.7 Globulin 2.8 Albumin/Globulin Ratio 1.7 TSH Cancelled Urine Color Yellow Urine Appearance Clear Urine pH 6.0 Ur Specific [place] 1.028 Urine Protein Negative Urine Ketones Trace A Urine Blood Negative Urine Nitrate Negative Urine Bilirubin Negative Urine Urobilinogen Negative Ur Leukocyte Esterase 2+ A Urine WBC (Auto) 2+(11-20/hpf) A Urine RBC (Auto) 1+(3-5/hpf) A Ur Squamous Epith Cells Present A Urine Bacteria Absent Urine Glucose Negative Salicylates < 2.50 Urine Opiates Screen None detected Acetaminophen < 15 Ur Barbiturates Screen None detected Valproic Acid 39.0 L Ur Phencyclidine Scrn None detected Ur Amphetamines Screen None detected U Benzodiazepines Scrn None detected [place] 0.10 L Urine Cocaine Screen None detected U Cannabinoids Screen None detected Serum Alcohol < 10 07/02/19 07/02/19 03:50 03:50 WBC 8.0 RBC 4.95 Hgb 14.4 Hct 43 MCV 87 MCH 29 MCHC 33 RDW 13 Plt Count 260 MPV 7.5 Neut % (Auto) 63.6 Lymph % (Auto) 24.0 [place] % (Auto) 9.3 Eos % (Auto) 2.5 Baso % (Auto) 0.6 Absolute Neuts (auto) 5.1 Absolute Lymphs (auto) 1.9 Absolute Monos (auto) 0.7 Absolute Eos (auto) 0.2 Absolute Basos (auto) 0.0 Absolute Nucleated RBC 0.0 Nucleated RBC % 0.0 Sodium Potassium 3.8 Chloride Carbon Dioxide Anion Gap BUN Creatinine Est GFR ( Amer) Est GFR (Non-Af Amer) BUN/Creatinine Ratio Glucose Calcium Total Bilirubin AST 49 H ALT Alkaline Phosphatase Total Protein Albumin Globulin Albumin/Globulin Ratio TSH 2.90 Urine Color Urine Appearance Urine pH Ur Specific [place] Urine Protein Urine Ketones Urine Blood Urine Nitrate Urine Bilirubin Urine Urobilinogen Ur Leukocyte Esterase Urine WBC (Auto) Urine RBC (Auto) Ur Squamous Epith Cells Urine Bacteria Urine Glucose Salicylates Urine Opiates Screen Acetaminophen Ur Barbiturates Screen Valproic Acid Ur Phencyclidine Scrn Ur Amphetamines Screen U Benzodiazepines Scrn [place] Urine Cocaine Screen U Cannabinoids Screen Serum Alcohol Continued Medication Management: Continue Outpt Medication Medications: Current Medications Acetaminophen (Tylenol Tab*) 650 mg PO Q4H PRN PRN Reason: PAIN or TEMP > 101 F Last Admin: 07/08/19 07:19 Dose: 650 mg Al Hydrox/Mg Hydrox/Simethicone (Maalox Plus*) 30 ml PO Q4H PRN PRN Reason: INDIGESTION Last Admin: 07/07/19 23:35 Dose: 30 ml Asenapine (Saphris(Nf)) 15 mg SL 2100 [facility] Last Admin: 07/07/19 20:38 Dose: Not Given Diphenhydramine HCl (Benadryl Po*) 50 mg PO Q4H PRN PRN Reason: AGITATION Divalproex Sodium (Depakote Er Tab(*)) 1,500 mg PO DAILY@1800 [facility] Last Admin: 07/07/19 20:33 Dose: 1,500 mg [place] Carbonate ([place] Carbonate Tab*) 600 mg PO QPM [facility] Last Admin: 07/07/19 20:38 Dose: Not Given Lorazepam (Ativan Tab(*)) 2 mg PO Q4H PRN PRN Reason: AGITATION Last Admin: 07/02/19 11:39 Dose: 2 mg Miscellaneous (Ativan Pyxis Marcial) 1 ea N/A .PYXIS MARCIAL PRN PRN Reason: PER PROTOCOL Multivitamins (Theragran Tab*) 1 tab PO DAILY [facility] Last Admin: 07/08/19 10:26 Dose: 1 tab Olanzapine (Zyprexa * Tab Odt) 10 mg PO Q6H PRN PRN Reason: AGITATION - Discharge Plan Discharge Plan: Inpatient Hospitalization
[2019-07-08] MEDS: Al Hydrox/Mg Hydrox/Simet LIQ* 30 ML UDC PO PRN (19:27)
[2019-07-08] MEDS: Lithium Carbonate TAB* 300 MG PO SCH (22:07)
[2019-07-08] MEDS: Divalproex ER TAB(*) 500 MG PO SCH (22:08)
[2019-07-08] MEDS: ASENAPINE 10 MG SL SCH (22:10)
[2019-07-09] MEDS: Vitamin THERAPEUTIC TAB PO SCH (08:37)
[2019-07-09] MEDS: Acetaminophen TAB* 325 MG PO PRN (09:45)
[2019-07-09] MEDS: Divalproex ER TAB(*) 500 MG PO SCH (18:52)
[2019-07-09] MEDS: Lithium Carbonate TAB* 300 MG PO SCH (18:56)
[2019-07-09] MEDS: ASENAPINE 10 MG SL SCH (21:20)
[2019-07-10] MEDS ORDERED: diPHENhydraMINE IV* 50 MG/ML 1 ml VIAL (BENADRYL) IM ONE (00:30)
[2019-07-10] MEDS ORDERED: Haloperidol INJ IV/IM* 5 MG/ML AMP IM ONE (00:30)
[2019-07-10] MEDS ORDERED: LORazepam INJ* 2 MG/ML 1 ML VIAL IM ONE (00:30)
[2019-07-10] MEDS ORDERED: diPHENhydraMINE IV* 50 MG/ML 1 ml VIAL (BENADRYL) ONE ×2 (00:33→10:11)
[2019-07-10] MEDS ORDERED: Haloperidol INJ IV/IM* 5 MG/ML AMP ONE ×2 (00:33→10:11)
[2019-07-10] MEDS ORDERED: LORazepam INJ* 2 MG/ML 1 ML VIAL ONE ×2 (00:34→10:11)
[2019-07-10] MEDS ORDERED: Lorazepam PYXIS KEY ONE (10:11)
[2019-07-10] MEDS: Vitamin THERAPEUTIC TAB PO SCH (11:22)
[2019-07-10] MEDS: Divalproex ER TAB(*) 500 MG PO SCH (18:02)
[2019-07-10] MEDS: Lithium Carbonate TAB* 300 MG PO SCH (18:03)
[2019-07-10] MEDS: ASENAPINE 10 MG SL SCH (20:59)
[2019-07-11] MEDS: Vitamin THERAPEUTIC TAB PO SCH ×2 (06:28→07:58)
--- NOTE | 2019-07-11 12:02 | PN ---
Subjective - Subjective Date of Service: 07/11/19 Service Type: [id number] Hosp care 35 min high complexity Subjective: Nursing Report: Patient was visible on unit, patient disruptive and not able to follow re direction. CC: "I want to take medications only at bedtime" Patient was seen and evaluated in the common room. The patient reported that he will only take medications at the times he wants to which he stated at bedtime. He was assured that medications would be offered at bed time but that it is up to him to take them. He is demanding discharge and access to the relaxation room. His father visited over the weekend. Patient reported that he is tolerating medications without side effects. Objective - General Observations Appearance: Disheveled Appears Stated Age: Yes Stature: Overweight Posture: Tense Eye Contact: Intense Behavior/Activity: Peculiar, Impulsive - Interaction Observations Attitude Towards Examiner: Demanding, Evasive, Mistrustful, Dismissive Stated Mood: Elevated Affect: Bright Speech Pattern/Tone: Perseverating Thought Process: Loose Associations Perception: Derealization Thought Content: Grandiose Hallucination Type: Denies Delusion Type: Denies - Cognitive Function Orientation: A&O x 4 Level of Consciousness: Awake Judgment Within Normal Limits: No - Medication Compliance Cooperative with Inpatient Medication Regimen: No - Group Participation Participates in Group Activities: No Assessment - Assessment Merits Inpatient Hospitalization: For Immediate Safety Clinical Impression: 24 year old with history of bipolar disorder and PTSD brought to the hospital by his father after showing signs of lisa and behavioral changes Plan - Plan Treatment Plan: Name: TOMMIE CABRAL Birthdate: 1995 [id number] #Continue Constant observation while awake patient continues to be intrusive and unable to follow re direction # The patient requires psychiatric inpatient admission at this time to assure safety, receive treatment and work toward stabilization. # EKG ordered for risk of QT prolongation of antipsychotic medication. # Obtained collateral information from father who indicated he is not at baseline at present time and describes features when he is unwell that include not socializing, refusing medications, isolating himself. Father confirmed no access to firearms or stockpiles of medications. # Collaboration with Social Work # Patient refusing labs # In effort to increase compliance, may give medications depakote, Saphris , and lithium during visiting hours or bedtime #Follow up at [facility] # Continue Saphris 15mg sublingual at 2100 # [place] level 0.1 # Court ruled in favor of continued treatment and treatment over objection # Valproic acid level 39 #Goals before discharge include: psychiatric stabilization Tentative Discharge: Pending psychiatric stabilization 07/02/19 07/02/19 07/02/19 02:13 03:45 03:45 WBC RBC Hgb Hct MCV MCH MCHC RDW Plt Count MPV Neut % (Auto) Lymph % (Auto) [place] % (Auto) Eos % (Auto) Baso % (Auto) Absolute Neuts (auto) Absolute Lymphs (auto) Absolute Monos (auto) Absolute Eos (auto) Absolute Basos (auto) Absolute Nucleated RBC Nucleated RBC % Sodium 136 Potassium TNP Chloride 106 Carbon Dioxide 18 L Anion Gap 12 H BUN 16 Creatinine 1.06 Est GFR ( Amer) 103.0 Est GFR (Non-Af Amer) 85.1 BUN/Creatinine Ratio 15.1 Glucose 147 H Calcium 9.5 Total Bilirubin 0.60 AST TNP ALT 44 Alkaline Phosphatase 95 Total Protein 7.5 Albumin 4.7 Globulin 2.8 Albumin/Globulin Ratio 1.7 TSH Cancelled Urine Color Yellow Urine Appearance Clear Urine pH 6.0 Ur Specific [place] 1.028 Urine Protein Negative Urine Ketones Trace A Urine Blood Negative Urine Nitrate Negative Urine Bilirubin Negative Urine Urobilinogen Negative Ur Leukocyte Esterase 2+ A Urine WBC (Auto) 2+(11-20/hpf) A Urine RBC (Auto) 1+(3-5/hpf) A Ur Squamous Epith Cells Present A Urine Bacteria Absent Urine Glucose Negative Salicylates < 2.50 Urine Opiates Screen None detected Acetaminophen < 15 Ur Barbiturates Screen None detected Valproic Acid 39.0 L Ur Phencyclidine Scrn None detected Ur Amphetamines Screen None detected U Benzodiazepines Scrn None detected [place] 0.10 L Urine Cocaine Screen None detected U Cannabinoids Screen None detected Serum Alcohol < 10 07/02/19 07/02/19 03:50 03:50 WBC 8.0 RBC 4.95 Hgb 14.4 Hct 43 MCV 87 MCH 29 MCHC 33 RDW 13 Plt Count 260 MPV 7.5 Neut % (Auto) 63.6 Lymph % (Auto) 24.0 [place] % (Auto) 9.3 Eos % (Auto) 2.5 Baso % (Auto) 0.6 Absolute Neuts (auto) 5.1 Absolute Lymphs (auto) 1.9 Absolute Monos (auto) 0.7 Absolute Eos (auto) 0.2 Absolute Basos (auto) 0.0 Absolute Nucleated RBC 0.0 Nucleated RBC % 0.0 Sodium Potassium 3.8 Chloride Carbon Dioxide Anion Gap BUN Creatinine Est GFR ( Amer) Est GFR (Non-Af Amer) BUN/Creatinine Ratio Glucose Calcium Total Bilirubin AST 49 H ALT Alkaline Phosphatase Total Protein Albumin Globulin Albumin/Globulin Ratio TSH 2.90 Urine Color Urine Appearance Urine pH Ur Specific [place] Urine Protein Urine Ketones Urine Blood Urine Nitrate Urine Bilirubin Urine Urobilinogen Ur Leukocyte Esterase Urine WBC (Auto) Urine RBC (Auto) Ur Squamous Epith Cells Urine Bacteria Urine Glucose Salicylates Urine Opiates Screen Acetaminophen Ur Barbiturates Screen Valproic Acid Ur Phencyclidine Scrn Ur Amphetamines Screen U Benzodiazepines Scrn [place] Urine Cocaine Screen U Cannabinoids Screen Serum Alcohol Continued Medication Management: Continue Outpt Medication Medications: Current Medications Acetaminophen (Tylenol Tab*) 650 mg PO Q4H PRN PRN Reason: PAIN or TEMP > 101 F Last Admin: 07/09/19 09:45 Dose: 650 mg Al Hydrox/Mg Hydrox/Simethicone (Maalox Plus*) 30 ml PO Q4H PRN PRN Reason: INDIGESTION Last Admin: 07/08/19 19:27 Dose: 30 ml Asenapine (Saphris(Nf)) 15 mg SL 2100 [facility] Last Admin: 07/10/19 20:59 Dose: 15 mg Diphenhydramine HCl (Benadryl Po*) 50 mg PO Q4H PRN PRN Reason: AGITATION Divalproex Sodium (Depakote Er Tab(*)) 1,500 mg PO 2100 [place] Carbonate ([place] Carbonate Tab*) 300 mg PO 2100 [place] Lorazepam (Ativan Tab(*)) 2 mg PO Q4H PRN PRN Reason: AGITATION Last Admin: 07/02/19 11:39 Dose: 2 mg Miscellaneous (Ativan Pyxis Marcial) 1 ea N/A .PYXIS MARCIAL PRN PRN Reason: PER PROTOCOL Multivitamins (Theragran Tab*) 1 tab PO DAILY [facility] Last Admin: 07/11/19 07:58 Dose: Not Given Olanzapine (Zyprexa * Tab Odt) 10 mg PO Q6H PRN PRN Reason: AGITATION - Discharge Plan Discharge Plan: Inpatient Hospitalization
[2019-07-11] MEDS: Divalproex ER TAB(*) 500 MG PO SCH (19:42)
[2019-07-11] MEDS: Lithium Carbonate TAB* 300 MG PO SCH (19:43)
[2019-07-11] MEDS: ASENAPINE 5 MG SL SCH (22:42)
[2019-07-11] MEDS: ASENAPINE 10 MG SL SCH (23:45)
[2019-07-12 08:14] LABS: Cholesterol 167 mg/dL; HDL Cholesterol 40.7 mg/dL; LDL Cholesterol 81 mg/dL; Triglycerides 226 mg/dL
[2019-07-12] MEDS: Vitamin THERAPEUTIC TAB PO SCH (08:27)
[2019-07-12 09:04] LABS: Lithium < 0.10 mmol/L (0.6-1.2)
--- NOTE | 2019-07-12 11:37 | PN ---
Subjective - Subjective Date of Service: 07/12/19 Service Type: [id number] Hosp care 35 min high complexity Subjective: Nursing Report: Patient was visible on unit, no behavioral incidents. Slept overnight. He is attending group activities. CC: "I took my meds" Patient was seen and evaluated in the common room. The patient reported he took his medications and that he would like to be discharged. He reported that is father is bring him clothing today. He reported having adequate appetite and sleep. Patient reported that he is tolerating medications without side effects. Patient took his medications last evening. Objective - General Observations Appearance: Disheveled Appears Stated Age: Yes Stature: Overweight Posture: WNL Eye Contact: Average Behavior/Activity: Peculiar - Interaction Observations Attitude Towards Examiner: Defensive Stated Mood: Expansive Affect: Restricted Speech Pattern/Tone: Perseverating Thought Process: Flight of Ideas Perception: WNL Thought Content: Preoccupation/Ruminations Hallucination Type: Denies Delusion Type: Denies - Cognitive Function Orientation: A&O x 4 Level of Consciousness: Awake Ability to Make Reasonable Decisions: Moderately Impaired - Medication Compliance Cooperative with Inpatient Medication Regimen: Yes - Group Participation Participates in Group Activities: No Assessment - Assessment Merits Inpatient Hospitalization: For Immediate Safety Clinical Impression: 24 year old with history of bipolar disorder and PTSD brought to the hospital by his father after showing signs of lisa and behavioral changes Plan - Plan Treatment Plan: Name: TOMMIE CABRAL Birthdate: 1995 [id number] #Continue Constant observation while awake patient continues to be intrusive and unable to follow re direction # The patient requires psychiatric inpatient admission at this time to assure safety, receive treatment and work toward stabilization. # EKG ordered for risk of QT prolongation of antipsychotic medication. # Obtained collateral information from father who indicated he is not at baseline at present time and describes features when he is unwell that include not socializing, refusing medications, isolating himself. Father confirmed no access to firearms or stockpiles of medications. # Collaboration with Social Work # Patient refusing labs # In effort to increase compliance, may give medications depakote, Saphris , and lithium during visiting hours or bedtime #Follow up at [facility] # Continue Saphris 15mg sublingual at 2100 # [place] level <0.10 # Court ruled in favor of continued treatment and treatment over objection # Valproic acid level 64 #Goals before discharge include: psychiatric stabilization Tentative Discharge: Pending psychiatric stabilization 07/12/19 07/12/19 07:28 07:28 Hemoglobin A1c 5.3 Triglycerides 226 Cholesterol 167 LDL Cholesterol 81 HDL Cholesterol 40.7 Valproic Acid 64.0 [place] < 0.10 L Continued Medication Management: Continue Outpt Medication Medications: Current Medications Acetaminophen (Tylenol Tab*) 650 mg PO Q4H PRN PRN Reason: PAIN or TEMP > 101 F Last Admin: 07/09/19 09:45 Dose: 650 mg Al Hydrox/Mg Hydrox/Simethicone (Maalox Plus*) 30 ml PO Q4H PRN PRN Reason: INDIGESTION Last Admin: 07/08/19 19:27 Dose: 30 ml Asenapine (Saphris(Nf)) 15 mg SL 2100 [facility] Last Admin: 07/11/19 22:42 Dose: 15 mg Diphenhydramine HCl (Benadryl Po*) 50 mg PO Q4H PRN PRN Reason: AGITATION Divalproex Sodium (Depakote Er Tab(*)) 1,500 mg PO 2100 [facility] Last Admin: 07/11/19 19:42 Dose: 1,500 mg [place] Carbonate ([place] Carbonate Tab*) 300 mg PO 2100 [facility] Last Admin: 07/11/19 19:43 Dose: 300 mg Lorazepam (Ativan Tab(*)) 2 mg PO Q4H PRN PRN Reason: AGITATION Last Admin: 07/02/19 11:39 Dose: 2 mg Miscellaneous (Ativan Pyxis Marcial) 1 ea N/A .PYXIS MARCIAL PRN PRN Reason: PER PROTOCOL Multivitamins (Theragran Tab*) 1 tab PO DAILY [facility] Last Admin: 07/12/19 08:27 Dose: 1 tab Olanzapine (Zyprexa * Tab Odt) 10 mg PO Q6H PRN PRN Reason: AGITATION - Discharge Plan Discharge Plan: Inpatient Hospitalization
[2019-07-12] MEDS: Al Hydrox/Mg Hydrox/Simet LIQ* 30 ML UDC PO PRN (16:04)
[2019-07-12] MEDS: Divalproex ER TAB(*) 500 MG PO SCH (21:22)
[2019-07-12] MEDS: Lithium Carbonate TAB* 300 MG PO SCH (21:22)
[2019-07-12] MEDS: ASENAPINE 5 MG SL SCH (22:54)
[2019-07-13] MEDS: Vitamin THERAPEUTIC TAB PO SCH (09:17)
--- NOTE | 2019-07-13 09:50 | PN ---
Subjective - Subjective Date of Service: 07/13/19 Service Type: [id number] Hosp care 35 min high complexity Subjective: Nursing Report: Patient was visible on unit, no emergency IM medications CC: "I want to be discharged" Patient was seen and evaluated in the common room. The patient reported he would like to be discharged. He demands to use the computer room and have staff pass. The patients father visited and said that he has shown some improvements but not back to himself yet. Patient stated that being in the hospital is making his mental health worse. Patient reported that he is tolerating medications without side effects. Objective - General Observations Appearance: Disheveled Appears Stated Age: Yes Stature: Overweight Posture: Slumped Eye Contact: Intense Behavior/Activity: Peculiar, Impulsive - Interaction Observations Attitude Towards Examiner: Defensive, Demanding Stated Mood: Expansive Affect: Restricted Speech Pattern/Tone: Excessive Thought Process: Flight of Ideas Perception: Derealization Thought Content: Grandiose Hallucination Type: Denies Delusion Type: Grandeur - Cognitive Function Orientation: A&O x 4 Level of Consciousness: Awake - Medication Compliance Cooperative with Inpatient Medication Regimen: Yes - Group Participation Participates in Group Activities: No Assessment - Assessment Merits Inpatient Hospitalization: For Immediate Safety Clinical Impression: 24 year old with history of bipolar disorder and PTSD brought to the hospital by his father after showing signs of lisa and behavioral changes Plan - Plan Treatment Plan: Name: TOMMIE CABRAL Birthdate: 1995 [id number] #Q 15 minute observation # Father reported that he is not at his baseline yet but has shown some improvement with treatment. # The patient requires psychiatric inpatient admission at this time to assure safety, receive treatment and work toward stabilization. # EKG ordered for risk of QT prolongation of antipsychotic medication. # Collaboration with Social Work # Follow up at [facility] # Continue Saphris 15mg sublingual at 2100, lithium 300mg qhs, depakote 1500mg qhs # [place] level <0.10 # Court ruled in favor of continued treatment and treatment over objection # Valproic acid level 64 #Goals before discharge include: psychiatric stabilization Tentative Discharge: Pending psychiatric stabilization 07/12/19 07/12/19 07:28 07:28 Hemoglobin A1c 5.3 Triglycerides 226 Cholesterol 167 LDL Cholesterol 81 HDL Cholesterol 40.7 Valproic Acid 64.0 [place] < 0.10 L Continued Medication Management: Continue Outpt Medication Medications: Current Medications Acetaminophen (Tylenol Tab*) 650 mg PO Q4H PRN PRN Reason: PAIN or TEMP > 101 F Last Admin: 07/09/19 09:45 Dose: 650 mg Al Hydrox/Mg Hydrox/Simethicone (Maalox Plus*) 30 ml PO Q4H PRN PRN Reason: INDIGESTION Last Admin: 07/12/19 16:04 Dose: 30 ml Asenapine (Saphris(Nf)) 15 mg SL 2100 [facility] Last Admin: 07/12/19 22:54 Dose: 15 mg Diphenhydramine HCl (Benadryl Po*) 50 mg PO Q4H PRN PRN Reason: AGITATION Divalproex Sodium (Depakote Er Tab(*)) 1,500 mg PO 2100 [facility] Last Admin: 07/12/19 21:22 Dose: 1,500 mg [place] Carbonate ([place] Carbonate Tab*) 300 mg PO 2100 [facility] Last Admin: 07/12/19 21:22 Dose: 300 mg Lorazepam (Ativan Tab(*)) 2 mg PO Q4H PRN PRN Reason: AGITATION Last Admin: 07/02/19 11:39 Dose: 2 mg Miscellaneous (Ativan Pyxis Marcial) 1 ea N/A .PYXIS MARCIAL PRN PRN Reason: PER PROTOCOL Multivitamins (Theragran Tab*) 1 tab PO DAILY [facility] Last Admin: 07/13/19 09:17 Dose: Not Given Olanzapine (Zyprexa * Tab Odt) 10 mg PO Q6H PRN PRN Reason: AGITATION - Discharge Plan Discharge Plan: Inpatient Hospitalization
[2019-07-13] MEDS: Divalproex ER TAB(*) 500 MG PO SCH (21:25)
[2019-07-13] MEDS: Lithium Carbonate TAB* 300 MG PO SCH (21:25)
[2019-07-14] MEDS: ASENAPINE 5 MG SL SCH (02:00)
[2019-07-14] MEDS: Vitamin THERAPEUTIC TAB PO SCH (08:01)
[2019-07-14] MEDS: Lithium Carbonate TAB* 300 MG PO SCH (20:01)
[2019-07-14] MEDS: Divalproex ER TAB(*) 500 MG PO SCH (20:01)
[2019-07-14] MEDS ORDERED: LORazepam INJ* 2 MG/ML 1 ML VIAL IM ONE (23:00)
[2019-07-14] MEDS ORDERED: diPHENhydraMINE IV* 50 MG/ML 1 ml VIAL (BENADRYL) IM ONE (23:00)
[2019-07-14] MEDS ORDERED: Haloperidol INJ IV/IM* 5 MG/ML AMP IM ONE (23:00)
[2019-07-14] MEDS ORDERED: LORazepam INJ* 2 MG/ML 1 ML VIAL ONE (23:46)
[2019-07-14] MEDS ORDERED: Haloperidol INJ IV/IM* 5 MG/ML AMP ONE (23:47)
[2019-07-14] MEDS ORDERED: diPHENhydraMINE IV* 50 MG/ML 1 ml VIAL (BENADRYL) ONE (23:47)
[2019-07-15] MEDS: ASENAPINE 5 MG SL SCH ×2 (00:01→11:45)
[2019-07-15] MEDS: Vitamin THERAPEUTIC TAB PO SCH (08:15)
--- NOTE | 2019-07-15 11:25 | PN ---
Subjective - Subjective Date of Service: 07/15/19 Service Type: [id number] Hosp care 35 min high complexity Subjective: Nursing Report: Patient was visible on unit, patient harassing staff members and peers on the unit. CC: " I do not need to be here" Patient was seen and evaluated in the common room. The patient received PRN [id number] without complication. Patient has been blocking peers on the unit harassing staff and other peers and unable to engage in own treatment. Objective - General Observations Appearance: Disheveled Appears Stated Age: Yes Stature: Overweight Posture: Slumped Eye Contact: Avoidant Behavior/Activity: Peculiar, Impulsive - Interaction Observations Attitude Towards Examiner: Uncooperative, Demanding, Mistrustful Stated Mood: Elevated, Irritable, Anxious Affect: Restricted Speech Pattern/Tone: Inappropriate Thought Process: Flight of Ideas Perception: Derealization Thought Content: Grandiose Thought Process: Lethality: Paranoid Ideation Hallucination Type: Denies Delusion Type: Denies - Cognitive Function Orientation: A&O x 4 Level of Consciousness: Awake Ability to Make Reasonable Decisions: Serverely Impaired - Medication Compliance Cooperative with Inpatient Medication Regimen: No - Group Participation Participates in Group Activities: No Assessment - Assessment Merits Inpatient Hospitalization: For Immediate Safety Clinical Impression: 24 year old with history of bipolar disorder and PTSD brought to the hospital by his father after showing signs of lisa and behavioral changes Plan - Plan Treatment Plan: Name: TOMMIE CABRAL Birthdate: 1995 [id number] # Q15 minute observation # The patient requires psychiatric inpatient admission at this time to assure safety, receive treatment and work toward stabilization. # EKG ordered for risk of QT prolongation of antipsychotic medication. # Collaboration with Social Work # Medication changes were tailored to patients preference and patient continued to be non adherent # [place] level <0.10 # Court ruled in favor of continued treatment and treatment over objection # Valproic acid level 64 # [facility] hospital referral #[place] increased to 600mg daily and other medications changed for daytime administration. # Patient on court order if patient will not comply with taking PO medications can give IM zyprexa 10mg up to 3 times a day #Goals before discharge include: psychiatric stabilization Tentative Discharge: To [facility] for further stabilization 07/12/19 07/12/19 07:28 07:28 Hemoglobin A1c 5.3 Triglycerides 226 Cholesterol 167 LDL Cholesterol 81 HDL Cholesterol 40.7 Valproic Acid 64.0 [place] < 0.10 L Continued Medication Management: Continue Outpt Medication Medications: Current Medications Acetaminophen (Tylenol Tab*) 650 mg PO Q4H PRN PRN Reason: PAIN or TEMP > 101 F Last Admin: 07/09/19 09:45 Dose: 650 mg Al Hydrox/Mg Hydrox/Simethicone (Maalox Plus*) 30 ml PO Q4H PRN PRN Reason: INDIGESTION Last Admin: 07/12/19 16:04 Dose: 30 ml Asenapine (Saphris(Nf)) 15 mg SL 2100 [facility] Last Admin: 07/15/19 00:01 Dose: Not Given Diphenhydramine HCl (Benadryl Po*) 50 mg PO Q4H PRN PRN Reason: AGITATION Divalproex Sodium (Depakote Er Tab(*)) 1,500 mg PO 2100 [facility] Last Admin: 07/14/19 20:01 Dose: 1,500 mg [place] Carbonate ([place] Carbonate Tab*) 300 mg PO 2100 [facility] Last Admin: 07/14/19 20:01 Dose: 300 mg Miscellaneous (Ativan Pyxis Marcial) 1 ea N/A .PYXIS MARCIAL PRN PRN Reason: PER PROTOCOL Multivitamins (Theragran Tab*) 1 tab PO DAILY [facility] Last Admin: 07/15/19 08:15 Dose: 1 tab Olanzapine (Zyprexa * Tab Odt) 10 mg PO Q6H PRN PRN Reason: AGITATION - Discharge Plan Discharge Plan: Consider Longer Term Tx
[2019-07-15] MEDS: Divalproex ER TAB(*) 250 MG PO SCH ×2 (11:45→22:16)
[2019-07-15] MEDS: Lithium Carbonate TAB* 300 MG PO SCH (11:45)
[2019-07-15] MEDS ORDERED: Divalproex ER TAB(*) 500 MG PO SCH (12:00)
[2019-07-16] MEDS: Divalproex ER TAB(*) 250 MG PO SCH ×2 (08:45→20:38)
[2019-07-16] MEDS: Vitamin THERAPEUTIC TAB PO SCH (08:46)
[2019-07-16] MEDS: ASENAPINE 5 MG SL SCH (08:46)
[2019-07-16] MEDS: Lithium Carbonate TAB* 300 MG PO SCH (08:46)
[2019-07-17] MEDS: Lithium Carbonate TAB* 300 MG PO SCH (08:31)
[2019-07-17] MEDS: Divalproex ER TAB(*) 250 MG PO SCH ×2 (08:32→20:33)
[2019-07-17] MEDS: Vitamin THERAPEUTIC TAB PO SCH ×2 (08:33→08:36)
[2019-07-17] MEDS: ASENAPINE 5 MG SL SCH (08:39)
[2019-07-17] MEDS: Acetaminophen TAB* 325 MG PO PRN (11:54)
[2019-07-18] MEDS: Vitamin THERAPEUTIC TAB PO SCH (08:37)
[2019-07-18] MEDS: Lithium Carbonate TAB* 300 MG PO SCH (08:37)
[2019-07-18] MEDS: Divalproex ER TAB(*) 250 MG PO SCH ×2 (08:37→19:57)
[2019-07-18] MEDS: ASENAPINE 5 MG SL SCH (08:47)
--- NOTE | 2019-07-18 10:12 | PN ---
Subjective - Subjective Date of Service: 07/18/19 Service Type: [id number] Hosp care 35 min high complexity Subjective: Nursing Report: Patient was visible on unit, Patient disruptive hostile and threatening. CC: "I dont trust you." Patient was seen and evaluated in the common room. Patient reported that he is tolerating medications without side effects. 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 Suha was contacted and reported that Tommie was making threatening remarks and said that if he doesnt get let out of here he is going to kill himself or someone else ( without naming specific target). His sister believes that he is not ready for discharge and requires more time in the hospital. She said he is not usually this mean and not usually delusional or grandiose or mean to others. His father was contacted and also stated that Tommie is not ready for discharge at this time. Objective - General Observations Appearance: Disheveled Appears Stated Age: Yes Stature: Overweight Posture: Tense Eye Contact: Intense Behavior/Activity: Stereotyped, Peculiar - Interaction Observations Attitude Towards Examiner: Uncooperative, Evasive, Mistrustful Stated Mood: Irritable Affect: Restricted Speech Pattern/Tone: Perseverating Thought Process: [place] Perception: Derealization Thought Content: Grandiose Thought Process: Lethality: Paranoid Ideation Hallucination Type: Denies Delusion Type: Grandeur - Cognitive Function Orientation: A&O x 4 Level of Consciousness: Awake Insight: Mostly Blames Others for Problems Judgment Within Normal Limits: No - Medication Compliance Cooperative with Inpatient Medication Regimen: Partial - Group Participation Participates in Group Activities: No Assessment - Assessment Merits Inpatient Hospitalization: For Immediate Safety Clinical Impression: 24 year old with history of bipolar disorder and PTSD brought to the hospital by his father after showing signs of lisa and behavioral changes Plan - Plan Treatment Plan: Name: TOMMIE CABRAL Birthdate: 1995 [id number] # Q15 minute observation # The patient requires psychiatric inpatient admission at this time to assure safety, receive treatment and work toward stabilization. # EKG ordered for risk of QT prolongation of antipsychotic medication. # Collaboration with Social Work # Sister Suha [phone] # Medication changes were tailored to patients preference and patient continued to be non adherent # [place] level and depakote level ordered for 07/19/19 # Court ruled in favor of continued treatment and treatment over objection # [facility] hospital being considered for further stabilization #[place] 600mg daily and other medications changed for daytime administration so that staff is able to give IM if refuses PO. # Patient on court order if patient will not comply with taking PO medications can give IM zyprexa 10mg up to 3 times a day #Goals before discharge include: psychiatric stabilization Tentative Discharge: Pending psychiatric stabilization 07/12/19 07/12/19 07:28 07:28 Hemoglobin A1c 5.3 Triglycerides 226 Cholesterol 167 LDL Cholesterol 81 HDL Cholesterol 40.7 Valproic Acid 64.0 [place] < 0.10 L Continued Medication Management: Continue Outpt Medication Medications: Current Medications Acetaminophen (Tylenol Tab*) 650 mg PO Q4H PRN PRN Reason: PAIN or TEMP > 101 F Last Admin: 07/17/19 11:54 Dose: 650 mg Al Hydrox/Mg Hydrox/Simethicone (Maalox Plus*) 30 ml PO Q4H PRN PRN Reason: INDIGESTION Last Admin: 07/12/19 16:04 Dose: 30 ml Asenapine (Saphris(Nf)) 15 mg SL DAILY [facility] Last Admin: 07/18/19 08:47 Dose: 15 mg Diphenhydramine HCl (Benadryl Po*) 50 mg PO Q4H PRN PRN Reason: AGITATION Divalproex Sodium (Depakote Er Tab(*)) 750 mg PO BID [facility] Last Admin: 07/18/19 08:37 Dose: 750 mg [place] Carbonate ([place] Carbonate Tab*) 600 mg PO DAILY [facility] Last Admin: 07/18/19 08:37 Dose: 600 mg Lorazepam (Ativan Tab(*)) 2 mg PO Q4H PRN PRN Reason: AGITATION Last Admin: 07/02/19 11:39 Dose: 2 mg Miscellaneous (Ativan Pyxis Marcial) 1 ea N/A .PYXIS MARCIAL PRN PRN Reason: PER PROTOCOL Multivitamins (Theragran Tab*) 1 tab PO DAILY [facility] Last Admin: 07/18/19 08:37 Dose: 1 tab Olanzapine (Zyprexa * Tab Odt) 10 mg PO Q6H PRN PRN Reason: AGITATION - Discharge Plan Discharge Plan: Inpatient Hospitalization
[2019-07-18] MEDS: Al Hydrox/Mg Hydrox/Simet LIQ* 30 ML UDC PO PRN (19:57)
[2019-07-19] MEDS: Al Hydrox/Mg Hydrox/Simet LIQ* 30 ML UDC PO PRN ×3 (00:03→19:01)
[2019-07-19] MEDS: Acetaminophen TAB* 325 MG PO PRN ×2 (04:45→15:17)
[2019-07-19] MEDS ORDERED: Hemorrhoidal OINT TOPICAL PRN (09:00)
[2019-07-19] MEDS: Lithium Carbonate TAB* 300 MG PO SCH (09:15)
[2019-07-19] MEDS: Divalproex ER TAB(*) 250 MG PO SCH ×2 (09:15→20:09)
[2019-07-19] MEDS: Vitamin THERAPEUTIC TAB PO SCH (09:16)
[2019-07-19] MEDS: ASENAPINE 5 MG SL SCH (09:16)
[2019-07-19] MEDS: Docusate CAP* 100 MG PO SCH ×2 (09:19→20:11)
[2019-07-20] MEDS: Divalproex ER TAB(*) 250 MG PO SCH ×2 (08:19→20:10)
[2019-07-20] MEDS: Lithium Carbonate TAB* 300 MG PO SCH (08:19)
[2019-07-20] MEDS: Docusate CAP* 100 MG PO SCH ×2 (08:20→20:10)
[2019-07-20] MEDS: Vitamin THERAPEUTIC TAB PO SCH (08:20)
[2019-07-20] MEDS: ASENAPINE 5 MG SL SCH (09:55)
--- NOTE | 2019-07-20 18:58 | PN ---
Subjective - Subjective Date of Service: 07/20/19 Service Type: [id number] Hosp care 25 min moderate complexity Subjective: Ther is no change in Tommie's behaviors. He continues to be intrusive, impulsive and frequently crosses boundaries. His speech is still pressured but easily redirectable. Objective - General Observations Appearance: Well Groomed Stature: Overweight, Tall Posture: WNL Eye Contact: Intense Behavior/Activity: Accelerated - Interaction Observations Attitude Towards Examiner: Demanding Stated Mood: Dysphoric Affect: Full Speech Pattern/Tone: Excessive, Pressured Thought Process: Disorganized, Loose Associations, [place] Perception: WNL Thought Content: Preoccupation/Ruminations, Obsessional Hallucination Type: Denies Delusion Type: Denies - Cognitive Function Orientation: A&O x 4 Cognition: WNL Estimated Intelligence: Normal Insight: Mostly Blames Others for Problems Judgment Within Normal Limits: No Ability to Make Reasonable Decisions: Serverely Impaired - Medication Compliance Cooperative with Inpatient Medication Regimen: Yes - Group Participation Participates in Group Activities: Partial Assessment - Assessment Merits Inpatient Hospitalization: For Immediate Safety, For Stabilization, Pending Safe DC Plan Clinical Impression: 24 year old with history of bipolar disorder and PTSD brought to the hospital by his father after showing signs of lisa and behavioral changes Plan - Plan Treatment Plan: Name: TOMMIE CABRAL Birthdate: 1995 [id number] # Q15 minute observation # The patient requires psychiatric inpatient admission at this time to assure safety, receive treatment and work toward stabilization. # EKG ordered for risk of QT prolongation of antipsychotic medication. # Collaboration with Social Work # Sister Suha [phone] # Medication changes were tailored to patients preference and patient continued to be non adherent # [place] level and depakote level ordered for 07/19/19 # Court ruled in favor of continued treatment and treatment over objection # [facility] being considered for further stabilization #[place] 600mg daily and other medications changed for daytime administration so that staff is able to give IM if refuses PO. # Patient on court order if patient will not comply with taking PO medications can give IM zyprexa 10mg up to 3 times a day #Goals before discharge include: psychiatric stabilization Tentative Discharge: Pending psychiatric stabilization 07/12/19 07/12/19 07:28 07:28 Hemoglobin A1c 5.3 Triglycerides 226 Cholesterol 167 LDL Cholesterol 81 HDL Cholesterol 40.7 Valproic Acid 64.0 [place] < 0.10 L Continued Medication Management: Continue Outpt Medication Medications: Current Medications Acetaminophen (Tylenol Tab*) 650 mg PO Q4H PRN PRN Reason: PAIN or TEMP > 101 F Last Admin: 07/19/19 15:17 Dose: 650 mg Al Hydrox/Mg Hydrox/Simethicone (Maalox Plus*) 30 ml PO Q4H PRN PRN Reason: INDIGESTION Last Admin: 07/19/19 19:01 Dose: 30 ml Asenapine (Saphris(Nf)) 15 mg SL BED[facility] Diphenhydramine HCl (Benadryl Po*) 50 mg PO Q4H PRN PRN Reason: AGITATION Divalproex Sodium (Depakote Er Tab(*)) 750 mg PO BID [facility] Last Admin: 07/20/19 08:19 Dose: 750 mg Docusate Sodium (Colace Cap*) 100 mg PO BID [facility] Last Admin: 07/20/19 08:20 Dose: 100 mg [place] Carbonate ([place] Carbonate Tab*) 600 mg PO DAILY [facility] Last Admin: 07/20/19 08:19 Dose: 600 mg Lorazepam (Ativan Tab(*)) 2 mg PO Q4H PRN PRN Reason: AGITATION Last Admin: 07/02/19 11:39 Dose: 2 mg Miscellaneous (Ativan Pyxis Marcial) 1 ea N/A .PYXIS MARCIAL PRN PRN Reason: PER PROTOCOL Multivitamins (Theragran Tab*) 1 tab PO DAILY [facility] Last Admin: 07/20/19 08:20 Dose: 1 tab Olanzapine (Zyprexa * Tab Odt) 10 mg PO Q6H PRN PRN Reason: AGITATION Phenyleph/Shark Oil/Min Oil/Petrol (Preparation H*) 1 applic TOPICAL Q1H PRN PRN Reason: HEMORRHOID PAIN - Discharge Plan Discharge Plan: Consider Longer Term Tx - [facility]
[2019-07-20] MEDS: Al Hydrox/Mg Hydrox/Simet LIQ* 30 ML UDC PO PRN (20:09)
[2019-07-21] MEDS: Divalproex ER TAB(*) 250 MG PO SCH ×2 (08:57→21:39)
[2019-07-21] MEDS: Lithium Carbonate TAB* 300 MG PO SCH (08:57)
[2019-07-21] MEDS: Vitamin THERAPEUTIC TAB PO SCH (08:58)
[2019-07-21] MEDS: Docusate CAP* 100 MG PO SCH ×2 (08:58→21:40)
[2019-07-22] MEDS: ASENAPINE 5 MG SL SCH ×2 (00:03→22:11)
[2019-07-22] MEDS: Lithium Carbonate TAB* 300 MG PO SCH (08:19)
[2019-07-22] MEDS: Divalproex ER TAB(*) 250 MG PO SCH ×2 (08:19→20:11)
[2019-07-22] MEDS: Vitamin THERAPEUTIC TAB PO SCH (08:20)
[2019-07-22] MEDS: Docusate CAP* 100 MG PO SCH ×2 (08:20→20:11)
--- NOTE | 2019-07-22 14:29 | PN ---
Subjective - Subjective Date of Service: 07/22/19 Service Type: [id number] Hosp care 15 min low complexity Subjective: Tommie is seen in Holiday coverage for Dr. [place]. The patient is now adherent with medications, however, he refused lab draw this morning for his lithium and VPA levels. He remains inappropriate with some peers and is hypersexual on interview. He does not recall any of his mother's numerous visits during this hospitalization and asks "I'm I the psychotic one or is she?" Objective - General Observations Appearance: Well Groomed Appears Stated Age: Yes Stature: Overweight Posture: WNL Eye Contact: Intense Behavior/Activity: Accelerated - Interaction Observations Attitude Towards Examiner: Seductive Stated Mood: Expansive Affect: [place] Speech Pattern/Tone: Excessive, Pressured Thought Process: Tangential Thought Content: Grandiose Hallucination Type: None Delusion Type: Grandeur - Cognitive Function Orientation: A&O x 4 Level of Consciousness: Awake Cognition: WNL Estimated Intelligence: Normal Judgment Within Normal Limits: No Ability to Make Reasonable Decisions: Serverely Impaired - Medication Compliance Cooperative with Inpatient Medication Regimen: Yes - Group Participation Participates in Group Activities: Yes Assessment - Assessment Merits Inpatient Hospitalization: For Immediate Safety, For Stabilization Inpatient DSM-V Dx: F31.13 Clinical Impression: 24 year old with history of bipolar disorder and PTSD brought to the hospital by his father after showing signs of lisa and behavioral changes BSU: Problem List - Patient Problems (1) Bipolar disorder with severe lisa Current Visit: No Status: Acute Code(s): F31.13 - BIPOLAR DISORD, CRNT EPSD MANIC W/O PSYCH FEATURES, SEVERE SNOMED Code(s): 122635476 Plan - Plan Treatment Plan: Name: TOMMIE CABRAL Birthdate: 1995 [id number] The patient is being treated with Depakote 750mg PO BID, [place] 600mg PO qday and asenapine 15mg SL qday. Await lithium and VPA levels. Patient requires further inpatient care. Continued Medication Management: Different Medication Medications: Current Medications Acetaminophen (Tylenol Tab*) 650 mg PO Q4H PRN PRN Reason: PAIN or TEMP > 101 F Last Admin: 07/19/19 15:17 Dose: 650 mg Al Hydrox/Mg Hydrox/Simethicone (Maalox Plus*) 30 ml PO Q4H PRN PRN Reason: INDIGESTION Last Admin: 07/20/19 20:09 Dose: 30 ml Asenapine (Saphris(Nf)) 15 mg SL BEDTIME [facility] Last Admin: 07/22/19 00:03 Dose: 15 mg Diphenhydramine HCl (Benadryl Po*) 50 mg PO Q4H PRN PRN Reason: AGITATION Divalproex Sodium (Depakote Er Tab(*)) 750 mg PO BID [facility] Last Admin: 07/22/19 08:19 Dose: 750 mg Docusate Sodium (Colace Cap*) 100 mg PO BID [facility] Last Admin: 07/22/19 08:20 Dose: 100 mg [place] Carbonate ([place] Carbonate Tab*) 600 mg PO DAILY [facility] Last Admin: 07/22/19 08:19 Dose: 600 mg Lorazepam (Ativan Tab(*)) 2 mg PO Q4H PRN PRN Reason: AGITATION Last Admin: 07/02/19 11:39 Dose: 2 mg Miscellaneous (Ativan Pyxis [place]) 1 ea N/A .PYXIS [place]AGE PRN PRN Reason: PER PROTOCOL Multivitamins (Theragran Tab*) 1 tab PO DAILY [facility] Last Admin: 07/22/19 08:20 Dose: 1 tab Olanzapine (Zyprexa * Tab Odt) 10 mg PO Q6H PRN PRN Reason: AGITATION Phenyleph/Shark Oil/Min Oil/Petrol (Preparation H*) 1 applic TOPICAL Q1H PRN PRN Reason: HEMORRHOID PAIN - Discharge Plan Discharge Plan: Inpatient Hospitalization
[2019-07-23] MEDS: Al Hydrox/Mg Hydrox/Simet LIQ* 30 ML UDC PO PRN (03:29)
[2019-07-23] MEDS: Docusate CAP* 100 MG PO SCH ×2 (09:29→20:56)
[2019-07-23] MEDS: Divalproex ER TAB(*) 250 MG PO SCH ×2 (09:30→20:56)
[2019-07-23] MEDS: Lithium Carbonate TAB* 300 MG PO SCH (09:30)
[2019-07-23] MEDS: Vitamin THERAPEUTIC TAB PO SCH (09:30)
[2019-07-23] MEDS: ASENAPINE 5 MG SL SCH (21:57)
[2019-07-24] MEDS: Divalproex ER TAB(*) 250 MG PO SCH ×2 (09:02→21:18)
[2019-07-24] MEDS: Lithium Carbonate TAB* 300 MG PO SCH (09:02)
[2019-07-24] MEDS: Docusate CAP* 100 MG PO SCH ×2 (09:02→21:17)
[2019-07-24] MEDS: Vitamin THERAPEUTIC TAB PO SCH (09:02)
[2019-07-24] MEDS: ASENAPINE 5 MG SL SCH (22:08)
[2019-07-25] MEDS: Divalproex ER TAB(*) 250 MG PO SCH ×2 (08:45→21:32)
[2019-07-25] MEDS: Lithium Carbonate TAB* 300 MG PO SCH ×2 (08:46→21:34)
[2019-07-25] MEDS: Vitamin THERAPEUTIC TAB PO SCH (08:46)
[2019-07-25] MEDS: Docusate CAP* 100 MG PO SCH ×2 (08:47→21:35)
[2019-07-25] MEDS: Al Hydrox/Mg Hydrox/Simet LIQ* 30 ML UDC PO PRN (09:09)
--- NOTE | 2019-07-25 13:25 | PN ---
Subjective - Subjective Date of Service: 07/25/19 Service Type: [id number] Hosp care 15 min low complexity Subjective: Tommie is seen in Holiday coverage for Dr. Reno. The patient remains hypersexual , stating that he must be discharged today so that he can prepare for a New Year 's [place] constitution party tomorrow with his "boyfriend." This observer understands this boyfriend to be a male peer at [place] [facility] who is not homosexual and has felt stalked and harassed by Tommie prior to his admission here. The patient's lithium level is negligible, yet he refuses to consider a higher dose, dismissing this clinician as incompetent for not confirming with his outpatient psychiatrist, Dr. Copeland, that Tommie cannot be on more than 600mg due to side effects. He cannot name what these side effects are. Tommie was bizarre and manic through much of the weekend per staff notes, talking often about witchcraft and sexual topics that made others uncomfortable. He was nonadherent with asenapine at scheduled times. He denies SI or HI. Objective - General Observations Appearance: Well Groomed Appears Stated Age: Yes Stature: Overweight Posture: WNL Eye Contact: Intense Behavior/Activity: Accelerated - Interaction Observations Attitude Towards Examiner: Seductive Stated Mood: Elevated Affect: Labile Speech Pattern/Tone: Excessive, Pressured Thought Process: Tangential Thought Content: Grandiose Hallucination Type: None Delusion Type: Erotic, Grandeur - Cognitive Function Orientation: A&O x 4 Level of Consciousness: Awake Cognition: WNL Estimated Intelligence: Normal Insight: Mostly Blames Others for Problems Judgment Within Normal Limits: No Ability to Make Reasonable Decisions: Serverely Impaired - Medication Compliance Cooperative with Inpatient Medication Regimen: Partial - Group Participation Participates in Group Activities: No Assessment - Assessment Merits Inpatient Hospitalization: For Immediate Safety, For Stabilization Inpatient DSM-V Dx: F31.13 Clinical Impression: 24 year old with history of bipolar disorder and PTSD brought to the hospital by his father after showing signs of lisa and behavioral changes BSU: Problem List - Patient Problems (1) Bipolar disorder with severe lisa Current Visit: No Status: Acute Code(s): F31.13 - BIPOLAR DISORD, CRNT EPSD MANIC W/O PSYCH FEATURES, SEVERE SNOMED Code(s): 561070849 Plan - Plan Treatment Plan: Name: TOMMIE CABRAL Birthdate: 1995 [id number] The patient is being treated with Depakote 750mg PO BID, [place] 600mg PO qday and asenapine 15mg SL qday. [place] level is negligible and the dose will be increased to 600mg PO BID. He is not improving and will be referred to the [facility]. Continued Medication Management: Different Medication Medications: Current Medications Acetaminophen (Tylenol Tab*) 650 mg PO Q4H PRN PRN Reason: PAIN or TEMP > 101 F Last Admin: 07/19/19 15:17 Dose: 650 mg Al Hydrox/Mg Hydrox/Simethicone (Maalox Plus*) 30 ml PO Q4H PRN PRN Reason: INDIGESTION Last Admin: 07/25/19 09:09 Dose: 30 ml Asenapine (Saphris(Nf)) 15 mg SL DAILY [facility] Diphenhydramine HCl (Benadryl Po*) 50 mg PO Q4H PRN PRN Reason: AGITATION Divalproex Sodium (Depakote Er Tab(*)) 750 mg PO BID [facility] Last Admin: 07/25/19 08:45 Dose: 750 mg Docusate Sodium (Colace Cap*) 100 mg PO BID [facility] Last Admin: 07/25/19 08:47 Dose: 100 mg [place] Carbonate ([place] Carbonate Tab*) 600 mg PO BID [facility] Lorazepam (Ativan Tab(*)) 2 mg PO Q4H PRN PRN Reason: AGITATION Last Admin: 07/02/19 11:39 Dose: 2 mg Miscellaneous (Ativan Pyxis Sage) 1 ea N/A .PYXIS SAGE PRN PRN Reason: PER PROTOCOL Multivitamins (Theragran Tab*) 1 tab PO DAILY [facility] Last Admin: 07/25/19 08:46 Dose: 1 tab Olanzapine (Zyprexa * Tab Odt) 10 mg PO Q6H PRN PRN Reason: AGITATION Phenyleph/Shark Oil/Min Oil/Petrol (Preparation H*) 1 applic TOPICAL Q1H PRN PRN Reason: HEMORRHOID PAIN - Discharge Plan Discharge Plan: Consider Longer Term Tx
--- NOTE | 2019-07-25 13:45 | PN ---
BSU: Group Therapy Note - Service Type Service Type: [id number] Group Psychotherapy - Cognitive Behavioral Group Note: Ferdinand conducted himself in an intrusive and disruptive fashion in this morning's group, being disrespectful to staff, stating "he's not in charge". He held in hand up towards this filing writer, then snapped his fingers as a means of encouraging a peer to enter discussion. He exhibits impaired insight, challenging a male peer to be more open to his sexual advances, describing how this peer "frustrates me" when rebuffed by him. He continues to openly defy staff efforts to set appropriate boundaries, insisting on collecting peers phone numbers. He responded negatively to discussion addressing maintaining appropriate boundaries, and not pursuing romantic interests while on the unit.
[2019-07-25] MEDS: ASENAPINE 5 MG SL SCH (13:48)
[2019-07-26] MEDS: Vitamin THERAPEUTIC TAB PO SCH (08:51)
[2019-07-26] MEDS: Lithium Carbonate TAB* 300 MG PO SCH ×2 (08:51→21:25)
[2019-07-26] MEDS: Divalproex ER TAB(*) 250 MG PO SCH ×2 (08:51→21:24)
[2019-07-26] MEDS: ASENAPINE 5 MG SL SCH (08:52)
[2019-07-26] MEDS: Docusate CAP* 100 MG PO SCH ×2 (08:52→21:25)
[2019-07-27] MEDS: Docusate CAP* 100 MG PO SCH ×2 (08:49→20:41)
[2019-07-27] MEDS: Lithium Carbonate TAB* 300 MG PO SCH ×2 (08:49→20:41)
[2019-07-27] MEDS: Vitamin THERAPEUTIC TAB PO SCH (08:49)
[2019-07-27] MEDS: Divalproex ER TAB(*) 250 MG PO SCH ×2 (08:50→20:40)
[2019-07-27] MEDS: ASENAPINE 5 MG SL SCH (08:57)
--- NOTE | 2019-07-27 16:28 | PN ---
Subjective - Subjective Date of Service: 07/27/19 Service Type: [id number] Hosp care 15 min low complexity Subjective: Tommie is seen once more in Holiday coverage for Dr. Reno. The patient remains intrusive, inappropriate and manic. He is aware of his administrative hearing scheduled for tomorrow (07/28) morning and dismisses me from his room. Objective - General Observations Appearance: Unkempt Appears Stated Age: Yes Stature: Overweight Posture: WNL Eye Contact: Avoidant Behavior/Activity: Accelerated - Interaction Observations Attitude Towards Examiner: Dismissive Stated Mood: Elevated Affect: Labile Speech Pattern/Tone: Pressured Thought Process: Tangential Thought Content: Grandiose Hallucination Type: None Delusion Type: Grandeur - Cognitive Function Orientation: A&O x 4 Level of Consciousness: Awake Cognition: WNL Estimated Intelligence: Normal Insight: Mostly Blames Others for Problems Judgment Within Normal Limits: No Ability to Make Reasonable Decisions: Serverely Impaired - Medication Compliance Cooperative with Inpatient Medication Regimen: Yes - Group Participation Participates in Group Activities: No Assessment - Assessment Merits Inpatient Hospitalization: For Immediate Safety, For Stabilization Inpatient DSM-V Dx: F31.13 Clinical Impression: 24 year old with history of bipolar disorder and PTSD brought to the hospital by his father after showing signs of lisa and behavioral changes BSU: Problem List - Patient Problems (1) Bipolar disorder with severe lisa Current Visit: No Status: Acute Code(s): F31.13 - BIPOLAR DISORD, CRNT EPSD MANIC W/O PSYCH FEATURES, SEVERE SNOMED Code(s): 251971694 Plan - Plan Treatment Plan: Name: TOMMIE CABRAL Birthdate: 1995 [id number] The patient is being treated with Depakote 750mg PO BID, [place] 600mg PO BID and asenapine 15mg SL qday. He is not improving and will be referred to the [facility] pending administrative hearing tomorrow. Continued Medication Management: Different Medication Medications: Current Medications Acetaminophen (Tylenol Tab*) 650 mg PO Q4H PRN PRN Reason: PAIN or TEMP > 101 F Last Admin: 07/19/19 15:17 Dose: 650 mg Al Hydrox/Mg Hydrox/Simethicone (Maalox Plus*) 30 ml PO Q4H PRN PRN Reason: INDIGESTION Last Admin: 07/25/19 09:09 Dose: 30 ml Asenapine (Saphris(Nf)) 15 mg SL DAILY [facility] Last Admin: 07/27/19 08:57 Dose: 15 mg Diphenhydramine HCl (Benadryl Po*) 50 mg PO Q4H PRN PRN Reason: AGITATION Divalproex Sodium (Depakote Er Tab(*)) 750 mg PO BID [facility] Last Admin: 07/27/19 08:50 Dose: 750 mg Docusate Sodium (Colace Cap*) 100 mg PO BID [facility] Last Admin: 07/27/19 08:49 Dose: 100 mg [place] Carbonate ([place] Carbonate Tab*) 600 mg PO BID [facility] Last Admin: 07/27/19 08:49 Dose: 600 mg Lorazepam (Ativan Tab(*)) 2 mg PO Q4H PRN PRN Reason: AGITATION Last Admin: 07/02/19 11:39 Dose: 2 mg Miscellaneous (Ativan Pyxis Sage) 1 ea N/A .PYXIS SAGE PRN PRN Reason: PER PROTOCOL Multivitamins (Theragran Tab*) 1 tab PO DAILY [facility] Last Admin: 07/27/19 08:49 Dose: 1 tab Olanzapine (Zyprexa * Tab Odt) 10 mg PO Q6H PRN PRN Reason: AGITATION Phenyleph/Shark Oil/Min Oil/Petrol (Preparation H*) 1 applic TOPICAL Q1H PRN PRN Reason: HEMORRHOID PAIN - Discharge Plan Discharge Plan: Consider Longer Term Tx
[2019-07-28] MEDS: Divalproex ER TAB(*) 250 MG PO SCH ×2 (08:50→20:04)
[2019-07-28] MEDS: Lithium Carbonate TAB* 300 MG PO SCH ×2 (08:50→20:04)
[2019-07-28] MEDS: Docusate CAP* 100 MG PO SCH ×2 (08:50→20:04)
[2019-07-28] MEDS: Vitamin THERAPEUTIC TAB PO SCH (08:50)
[2019-07-28] MEDS: ASENAPINE 5 MG SL SCH (10:45)
--- NOTE | 2019-07-29 08:19 | PN ---
Subjective - Subjective Date of Service: 07/29/19 Service Type: [id number] Hosp care 35 min high complexity Subjective: Nursing Report: Patient was visible on unit, slept overnight. CC: "I want a dress" Patient was seen and evaluated in the common room. The patient reported he would like to be discharged. He reported that saphris makes him tired. The patient refused labs this morning. Patient reported that he is tolerating medications without side effects. Objective - General Observations Appearance: Disheveled Appears Stated Age: Yes Stature: Overweight Posture: Slumped Eye Contact: Avoidant Behavior/Activity: Accelerated - Interaction Observations Attitude Towards Examiner: Hostile Attitude Towards Parent/Guardian: Demanding Stated Mood: Expansive Affect: Incongruent Speech Pattern/Tone: Loud Volume Thought Process: Flight of Ideas Perception: Depersonalization Thought Content: Preoccupation/Ruminations Thought Process: Lethality: Paranoid Ideation Hallucination Type: Denies Delusion Type: Grandeur - Cognitive Function Orientation: A&O x 4 Level of Consciousness: Awake Ability to Make Reasonable Decisions: Serverely Impaired - Medication Compliance Cooperative with Inpatient Medication Regimen: Yes - Group Participation Participates in Group Activities: No Assessment - Assessment Merits Inpatient Hospitalization: For Immediate Safety Inpatient DSM-V Dx: F31.13 Clinical Impression: 24 year old with history of bipolar disorder and PTSD brought to the hospital by his father after showing signs of lisa and behavioral changes Plan - Plan Treatment Plan: Name: TOMMIE CABRAL Birthdate: 1995 [id number] # Q15 minute observation # The patient requires psychiatric inpatient admission at this time to assure safety, receive treatment and work toward stabilization. # Collaboration with Social Work # Sister Suha [phone] # Medication changes were tailored to patients preference and patient continued to be non adherent # [place] level and depakote level ordered and patient continues to refuse labs # Court ruled in favor of continued treatment and treatment over objection # State hospital referral already placed # Saphris was discontinued and zyprexa 10mg qhs in place Continued Medication Management: Continue Outpt Medication Medications: Current Medications Acetaminophen (Tylenol Tab*) 650 mg PO Q4H PRN PRN Reason: PAIN or TEMP > 101 F Last Admin: 07/19/19 15:17 Dose: 650 mg Al Hydrox/Mg Hydrox/Simethicone (Maalox Plus*) 30 ml PO Q4H PRN PRN Reason: INDIGESTION Last Admin: 07/25/19 09:09 Dose: 30 ml Asenapine (Saphris(Nf)) 15 mg SL DAILY [facility] Last Admin: 07/28/19 10:45 Dose: 15 mg Diphenhydramine HCl (Benadryl Po*) 50 mg PO Q4H PRN PRN Reason: AGITATION Divalproex Sodium (Depakote Er Tab(*)) 750 mg PO BID [facility] Last Admin: 07/28/19 20:04 Dose: 750 mg Docusate Sodium (Colace Cap*) 100 mg PO BID [facility] Last Admin: 07/28/19 20:04 Dose: 100 mg [place] Carbonate ([place] Carbonate Tab*) 600 mg PO BID [facility] Last Admin: 07/28/19 20:04 Dose: 600 mg Lorazepam (Ativan Tab(*)) 2 mg PO Q4H PRN PRN Reason: AGITATION Last Admin: 07/02/19 11:39 Dose: 2 mg Miscellaneous (Ativan Pyxis Marcial) 1 ea N/A .PYXIS MARCIAL PRN PRN Reason: PER PROTOCOL Multivitamins (Theragran Tab*) 1 tab PO DAILY [facility] Last Admin: 07/28/19 08:50 Dose: 1 tab Olanzapine (Zyprexa * Tab Odt) 10 mg PO Q6H PRN PRN Reason: AGITATION Phenyleph/Shark Oil/Min Oil/Petrol (Preparation H*) 1 applic TOPICAL Q1H PRN PRN Reason: HEMORRHOID PAIN - Discharge Plan Discharge Plan: Consider Longer Term Tx
[2019-07-29] MEDS: Vitamin THERAPEUTIC TAB PO SCH (08:53)
[2019-07-29] MEDS: Divalproex ER TAB(*) 250 MG PO SCH ×2 (08:53→20:28)
[2019-07-29] MEDS: Docusate CAP* 100 MG PO SCH ×2 (08:53→20:30)
[2019-07-29] MEDS: Lithium Carbonate TAB* 300 MG PO SCH ×2 (08:54→20:29)
[2019-07-29] MEDS: LORazepam TAB(*) 1 MG PO PRN (20:26)
[2019-07-29] MEDS: OLANzapine TAB*ODT* 5 MG PO SCH (21:57)
[2019-07-30] MEDS: Divalproex ER TAB(*) 250 MG PO SCH ×2 (10:27→20:01)
[2019-07-30] MEDS: Docusate CAP* 100 MG PO SCH ×2 (10:27→20:02)
[2019-07-30] MEDS: Vitamin THERAPEUTIC TAB PO SCH (10:27)
[2019-07-30] MEDS: Lithium Carbonate TAB* 300 MG PO SCH ×2 (10:27→20:02)
[2019-07-30] MEDS: OLANzapine TAB*ODT* 5 MG PO SCH (22:02)
[2019-07-31] MEDS: Vitamin THERAPEUTIC TAB PO SCH (09:40)
[2019-07-31] MEDS: Lithium Carbonate TAB* 300 MG PO SCH ×2 (09:41→20:17)
[2019-07-31] MEDS: Divalproex ER TAB(*) 250 MG PO SCH ×2 (09:41→20:16)
[2019-07-31] MEDS: Docusate CAP* 100 MG PO SCH ×2 (09:41→20:17)
[2019-07-31] MEDS: OLANzapine TAB*ODT* 5 MG PO SCH (22:11)
[2019-08-01] MEDS: Divalproex ER TAB(*) 250 MG PO SCH ×2 (10:53→20:03)
[2019-08-01] MEDS: Vitamin THERAPEUTIC TAB PO SCH (10:54)
[2019-08-01] MEDS: Lithium Carbonate TAB* 300 MG PO SCH ×2 (10:54→20:04)
[2019-08-01] MEDS: Docusate CAP* 100 MG PO SCH ×2 (10:55→20:06)
[2019-08-01 11:55] LABS: Lithium 0.51 mmol/L (0.6-1.2)
--- NOTE | 2019-08-01 12:24 | PN ---
Subjective - Subjective Date of Service: 08/01/19 Service Type: [id number] Hosp care 35 min high complexity Subjective: Nursing Report: Patient was visible on unit, slept overnight. CC: "I slept better" Patient reported that he slept better after his medication was changes to bedtime. He asked about borderline personality disorder. He reported that his parents came to visit over the weekend. Patient expressed that he might have borderline and might be hypomanic. Patient took peers food and threw it away. He reported having adequate appetite and sleep. Patient reported that he is tolerating medications without side effects. Objective - General Observations Appearance: Disheveled Appears Stated Age: Yes Stature: Overweight Posture: WNL Eye Contact: Average Behavior/Activity: Accelerated, Peculiar - Interaction Observations Attitude Towards Examiner: Defensive, Manipulative Stated Mood: Elevated Affect: Full Speech Pattern/Tone: Excessive Thought Process: Flight of Ideas Perception: Depersonalization Thought Content: Grandiose Hallucination Type: Denies Delusion Type: Erotic, Grandeur - Cognitive Function Orientation: A&O x 4 Level of Consciousness: Awake Judgment Within Normal Limits: No - Medication Compliance Cooperative with Inpatient Medication Regimen: Yes - Group Participation Participates in Group Activities: No Assessment - Assessment Merits Inpatient Hospitalization: For Immediate Safety Inpatient DSM-V Dx: F31.13 Clinical Impression: 24 year old with history of bipolar disorder and PTSD brought to the hospital by his father after showing signs of lisa and behavioral changes Plan - Plan Treatment Plan: Name: TOMMIE CABRAL Birthdate: 1995 [id number] # Q15 minute observation # The patient requires psychiatric inpatient admission at this time to assure safety, receive treatment and work toward stabilization. # Collaboration with Social Work # Sister Suha [phone] # Medication changes were tailored to patients preference and patient continued to be non adherent # [place] level and depakote level ordered and patient continues to refuse labs # Court ruled in favor of continued treatment and treatment over objection # State hospital referral completed # Continue zyprexa 10mg qhs Sodium 136 mmol/L (135-145) 07/02/19 02:13 Potassium 3.8 mmol/L (3.5-5.0) 07/02/19 03:50 BUN 16 mg/dL (6-24) 07/02/19 02:13 Creatinine 1.06 mg/dL (0.67-1.17) 07/02/19 02:13 Hemoglobin A1c 5.3 % (4.0-5.6) 07/12/19 07:28 Calcium 9.5 mg/dL (8.6-10.3) 07/02/19 02:13 AST 49 U/L (13-39) H 07/02/19 03:50 ALT 44 U/L (7-52) 07/02/19 02:13 Triglycerides 226 mg/dL 07/12/19 07:28 Cholesterol 167 mg/dL 07/12/19 07:28 LDL Cholesterol 81 mg/dL 07/12/19 07:28 Continued Medication Management: Continue Outpt Medication Medications: Current Medications Acetaminophen (Tylenol Tab*) 650 mg PO Q4H PRN PRN Reason: PAIN or TEMP > 101 F Last Admin: 07/19/19 15:17 Dose: 650 mg Al Hydrox/Mg Hydrox/Simethicone (Maalox Plus*) 30 ml PO Q4H PRN PRN Reason: INDIGESTION Last Admin: 07/25/19 09:09 Dose: 30 ml Diphenhydramine HCl (Benadryl Po*) 50 mg PO Q4H PRN PRN Reason: AGITATION Divalproex Sodium (Depakote Er Tab(*)) 750 mg PO BID [facility] Last Admin: 08/01/19 10:53 Dose: 750 mg Docusate Sodium (Colace Cap*) 100 mg PO BID [facility] Last Admin: 08/01/19 10:55 Dose: Not Given [place] Carbonate ([place] Carbonate Tab*) 600 mg PO BID [facility] Last Admin: 08/01/19 10:54 Dose: 600 mg Lorazepam (Ativan Tab(*)) 2 mg PO Q4H PRN PRN Reason: AGITATION Last Admin: 07/29/19 20:26 Dose: 2 mg Miscellaneous (Ativan Pyxis Marcial) 1 ea N/A .PYXIS MARCIAL PRN PRN Reason: PER PROTOCOL Multivitamins (Theragran Tab*) 1 tab PO DAILY [facility] Last Admin: 08/01/19 10:54 Dose: 1 tab Olanzapine (Zyprexa * Tab Odt) 10 mg PO Q6H PRN PRN Reason: AGITATION Olanzapine (Zyprexa * Tab Odt) 10 mg PO BEDTIME [facility] Last Admin: 07/31/19 22:11 Dose: 10 mg Phenyleph/Shark Oil/Min Oil/Petrol (Preparation H*) 1 applic TOPICAL Q1H PRN PRN Reason: HEMORRHOID PAIN - Discharge Plan Discharge Plan: Consider Longer Term Tx
[2019-08-01] MEDS: OLANzapine TAB*ODT* 5 MG PO SCH (20:03)
[2019-08-02] MEDS: Docusate CAP* 100 MG PO SCH ×2 (10:12→21:02)
[2019-08-02] MEDS: Lithium Carbonate TAB* 300 MG PO SCH ×2 (10:12→21:00)
[2019-08-02] MEDS: Vitamin THERAPEUTIC TAB PO SCH (10:12)
[2019-08-02] MEDS: Divalproex ER TAB(*) 250 MG PO SCH ×2 (10:12→21:00)
--- NOTE | 2019-08-02 11:14 | PN ---
Subjective - Subjective Date of Service: 08/02/19 Service Type: [id number] Hosp care 35 min high complexity Subjective: Nursing Report: Patient was visible on unit, no behavioral incidents. Hyper- sexual CC: "I want to know right now if I have borderline personality" Patient was seen and evaluated in the common room. The patient reported that his sleep was improved. Per staff patient made several sexual statements last evening. He reported having adequate appetite and sleep. Patient reported that he is tolerating medications without side effects. Objective - General Observations Appearance: Disheveled Appears Stated Age: Yes Stature: Overweight Posture: Slumped Eye Contact: Avoidant Behavior/Activity: Accelerated, Peculiar, Impulsive - Interaction Observations Attitude Towards Examiner: Defensive Stated Mood: Elevated Affect: Restricted Speech Pattern/Tone: Rambling Thought Process: Flight of Ideas Perception: WNL Thought Content: Grandiose Hallucination Type: Denies Delusion Type: Erotic - Cognitive Function Orientation: A&O x 4 Level of Consciousness: Awake Ability to Make Reasonable Decisions: Serverely Impaired - Medication Compliance Cooperative with Inpatient Medication Regimen: Yes - Group Participation Participates in Group Activities: No Assessment - Assessment Merits Inpatient Hospitalization: For Immediate Safety Inpatient DSM-V Dx: F31.13 Clinical Impression: 24 year old with history of bipolar disorder and PTSD brought to the hospital by his father after showing signs of lisa and behavioral changes Plan - Plan Treatment Plan: Name: TOMMIE CABRAL Birthdate: 1995 [id number] # Q15 minute observation # The patient requires psychiatric inpatient admission at this time to assure safety, receive treatment and work toward stabilization. # Collaboration with Social Work # Bi Borderline PD screening tool + # Sister Suha [phone] # [place] level 0.51 and depakote level 49 # Court ruled in favor of continued treatment and treatment over objection # State hospital referral completed # Continue zyprexa 10mg qhs Tentative discharge: Awaiting state hospital response. 08/01/19 10:48 Valproic Acid 49.0 L [place] 0.51 L Continued Medication Management: Continue Outpt Medication Medications: Current Medications Acetaminophen (Tylenol Tab*) 650 mg PO Q4H PRN PRN Reason: PAIN or TEMP > 101 F Last Admin: 07/19/19 15:17 Dose: 650 mg Al Hydrox/Mg Hydrox/Simethicone (Maalox Plus*) 30 ml PO Q4H PRN PRN Reason: INDIGESTION Last Admin: 07/25/19 09:09 Dose: 30 ml Diphenhydramine HCl (Benadryl Po*) 50 mg PO Q4H PRN PRN Reason: AGITATION Divalproex Sodium (Depakote Er Tab(*)) 750 mg PO BID [facility] Last Admin: 08/02/19 10:12 Dose: 750 mg Docusate Sodium (Colace Cap*) 100 mg PO BID [facility] Last Admin: 08/02/19 10:12 Dose: Not Given [place] Carbonate ([place] Carbonate Tab*) 600 mg PO BID [facility] Last Admin: 08/02/19 10:12 Dose: 600 mg Lorazepam (Ativan Tab(*)) 2 mg PO Q4H PRN PRN Reason: AGITATION Last Admin: 07/29/19 20:26 Dose: 2 mg Miscellaneous (Ativan Pyxis Marcial) 1 ea N/A .PYXIS MARCIAL PRN PRN Reason: PER PROTOCOL Multivitamins (Theragran Tab*) 1 tab PO DAILY [facility] Last Admin: 08/02/19 10:12 Dose: 1 tab Olanzapine (Zyprexa * Tab Odt) 10 mg PO Q6H PRN PRN Reason: AGITATION Olanzapine (Zyprexa * Tab Odt) 10 mg PO BEDTIME [facility] Last Admin: 08/01/19 20:03 Dose: 10 mg Phenyleph/Shark Oil/Min Oil/Petrol (Preparation H*) 1 applic TOPICAL Q1H PRN PRN Reason: HEMORRHOID PAIN - Discharge Plan Discharge Plan: Inpatient Hospitalization
[2019-08-02] MEDS: OLANzapine TAB*ODT* 5 MG PO SCH (22:07)
[2019-08-03] MEDS: Lithium Carbonate TAB* 300 MG PO SCH ×2 (08:39→20:35)
[2019-08-03] MEDS: Divalproex ER TAB(*) 250 MG PO SCH ×2 (08:39→20:34)
[2019-08-03] MEDS: Docusate CAP* 100 MG PO SCH ×2 (08:40→20:35)
[2019-08-03] MEDS: Vitamin THERAPEUTIC TAB PO SCH (08:40)
--- NOTE | 2019-08-03 09:58 | PN ---
Subjective - Subjective Date of Service: 08/03/19 Service Type: [id number] Hosp care 35 min high complexity Subjective: Nursing Report: Patient was visible on unit, no behavioral incidents. Slept overnight. CC: "I plan to keep doing well" Patient was seen and evaluated in the common room. The patient reported he would [facility] He reported having adequate appetite and sleep. Per nursing no behavioral issues or overnight events reported. Patient reported that he is tolerating medications without side effects. Patient expressed he will maintain health boundaries with staff and other peers and is excited for the possibility of being discharged on Thursday. Objective - General Observations Appearance: Disheveled Appears Stated Age: Yes Stature: Overweight Posture: WNL Eye Contact: Average Behavior/Activity: WNL - Interaction Observations Attitude Towards Examiner: Cooperative Stated Mood: Euthymic Affect: Full Speech Pattern/Tone: Clear Thought Process: Coherent Perception: WNL Thought Content: WNL Hallucination Type: None Delusion Type: None - Cognitive Function Orientation: A&O x 4 Level of Consciousness: Awake - Medication Compliance Cooperative with Inpatient Medication Regimen: Yes - Group Participation Participates in Group Activities: Partial Assessment - Assessment Merits Inpatient Hospitalization: For Immediate Safety Inpatient DSM-V Dx: F31.13 Clinical Impression: 24 year old with history of bipolar disorder and PTSD brought to the hospital by his father after showing signs of lisa and behavioral changes Plan - Plan Treatment Plan: Name: TOMMIE CABRAL Birthdate: 1995 [id number] # Q30 minute observation with staff pass and computer # The patient requires psychiatric inpatient admission at this time to assure safety, receive treatment and work toward stabilization. # Collaboration with Social Work # Bi Borderline PD screening tool + # Sister Suha [phone] #Father in agreement with discharge plan for Thursday and he confirmed seeing improvement over the last 2 days and plans to visit today, and tomorrow and will take off work if he is discharged Thursday # [place] level 0.51 and depakote level 49 # Court ruled in favor of continued treatment and treatment over objection # [facility] hold [facility] transfer # If patient is without incident on Thursday will plan for discharge # Continue zyprexa 10mg qhs Tentative discharge: Thursday contingent on behavioral response to 30 min observation, staff pass and computer access 08/01/19 10:48 Valproic Acid 49.0 L [place] 0.51 L Continued Medication Management: Continue Outpt Medication Medications: Current Medications Acetaminophen (Tylenol Tab*) 650 mg PO Q4H PRN PRN Reason: PAIN or TEMP > 101 F Last Admin: 07/19/19 15:17 Dose: 650 mg Al Hydrox/Mg Hydrox/Simethicone (Maalox Plus*) 30 ml PO Q4H PRN PRN Reason: INDIGESTION Last Admin: 07/25/19 09:09 Dose: 30 ml Diphenhydramine HCl (Benadryl Po*) 50 mg PO Q4H PRN PRN Reason: AGITATION Divalproex Sodium (Depakote Er Tab(*)) 750 mg PO BID [facility] Last Admin: 08/03/19 08:39 Dose: 750 mg Docusate Sodium (Colace Cap*) 100 mg PO BID [facility] Last Admin: 08/03/19 08:40 Dose: Not Given [place] Carbonate ([place] Carbonate Tab*) 600 mg PO BID [facility] Last Admin: 08/03/19 08:39 Dose: 600 mg Lorazepam (Ativan Tab(*)) 2 mg PO Q4H PRN PRN Reason: AGITATION Last Admin: 07/29/19 20:26 Dose: 2 mg Miscellaneous (Ativan Pyxis Marcial) 1 ea N/A .PYXIS MARCIAL PRN PRN Reason: PER PROTOCOL Multivitamins (Theragran Tab*) 1 tab PO DAILY [facility] Last Admin: 08/03/19 08:40 Dose: Not Given Olanzapine (Zyprexa * Tab Odt) 10 mg PO Q6H PRN PRN Reason: AGITATION Olanzapine (Zyprexa * Tab Odt) 10 mg PO BEDTIME [facility] Last Admin: 08/02/19 22:07 Dose: 10 mg Phenyleph/Shark Oil/Min Oil/Petrol (Preparation H*) 1 applic TOPICAL Q1H PRN PRN Reason: HEMORRHOID PAIN - Discharge Plan Discharge Plan: Inpatient Hospitalization
--- NOTE | 2019-08-03 12:06 | PN ---
BSU: Group Therapy Note - Service Type Service Type: 61823 Group Psychotherapy - Cognitive Behavioral Group Note: Alex was invited back to group by undersigned today to assess function. He was respectful today, but continues to be hyperverbal and intrusive in group conversation, and tries to dominate conversation. He impresses as improving in management of symptoms, but continues to exhibit poor insight and impaired sense of boundaries.
[2019-08-03] MEDS: OLANzapine TAB*ODT* 5 MG PO SCH (22:04)
[2019-08-04] MEDS: Divalproex ER TAB(*) 250 MG PO SCH ×2 (08:07→20:27)
[2019-08-04] MEDS: Lithium Carbonate TAB* 300 MG PO SCH ×2 (08:08→20:28)
[2019-08-04] MEDS: Docusate CAP* 100 MG PO SCH ×2 (09:30→20:29)
[2019-08-04] MEDS: Vitamin THERAPEUTIC TAB PO SCH (09:31)
--- NOTE | 2019-08-04 10:35 | PN ---
Subjective - Subjective Date of Service: 08/04/19 Service Type: 85953 Hosp care 35 min high complexity Subjective: Nursing Report: Patient was visible on unit, no behavioral incidents. Slept overnight. CC: "I am fine" Patient was seen and evaluated in the common room. The patient reported he feels safe for discharge. Staff did not report any overnight incidents. He reported having adequate appetite and sleep. The patient reports attending groups. Patient reported that he is tolerating medications without side effects. Went for staff pass. Objective - General Observations Appearance: Disheveled Appears Stated Age: Yes Stature: Overweight Posture: WNL Eye Contact: Average Behavior/Activity: WNL - Interaction Observations Attitude Towards Examiner: Cooperative Stated Mood: Euthymic Affect: Restricted Speech Pattern/Tone: Clear Thought Process: Coherent Perception: WNL Thought Content: WNL Hallucination Type: None Delusion Type: None - Cognitive Function Orientation: A&O x 4 Level of Consciousness: Awake - Medication Compliance Cooperative with Inpatient Medication Regimen: Yes - Group Participation Participates in Group Activities: Yes Assessment - Assessment Merits Inpatient Hospitalization: For Immediate Safety Inpatient DSM-V Dx: F31.13 Clinical Impression: 24 year old with history of bipolar disorder and PTSD brought to the hospital by his father after showing signs of lisa and behavioral changes Plan - Plan Treatment Plan: Name: TOMMIE CABRAL Birthdate: 1995 [id number] # Q30 minute observation with staff pass and computer # The patient requires psychiatric inpatient admission at this time to assure safety, receive treatment and work toward stabilization. # Collaboration with Social Work # Bi Borderline PD screening tool + # Sister Suha [phone] #Father in agreement with discharge plan for Thursday and he confirmed seeing improvement over the last 2 days and plans to visit today, and tomorrow and will take off work if he is discharged Thursday # [place] level 0.51 and depakote level 49 # Court ruled in favor of continued treatment and treatment over objection # Will [facility] on [facility] # If patient is without incident on Thursday will plan for discharge # Continue zyprexa 10mg qhs Tentative discharge: Thursday at noon 08/01/19 10:48 Valproic Acid 49.0 L [place] 0.51 L Continued Medication Management: Continue Outpt Medication Medications: Current Medications Acetaminophen (Tylenol Tab*) 650 mg PO Q4H PRN PRN Reason: PAIN or TEMP > 101 F Last Admin: 07/19/19 15:17 Dose: 650 mg Al Hydrox/Mg Hydrox/Simethicone (Maalox Plus*) 30 ml PO Q4H PRN PRN Reason: INDIGESTION Last Admin: 07/25/19 09:09 Dose: 30 ml Diphenhydramine HCl (Benadryl Po*) 50 mg PO Q4H PRN PRN Reason: AGITATION Divalproex Sodium (Depakote Er Tab(*)) 750 mg PO BID [facility] Last Admin: 08/04/19 08:07 Dose: 750 mg Docusate Sodium (Colace Cap*) 100 mg PO BID [facility] Last Admin: 08/04/19 09:30 Dose: Not Given [place] Carbonate ([place] Carbonate Tab*) 600 mg PO BID [facility] Last Admin: 08/04/19 08:08 Dose: 600 mg Lorazepam (Ativan Tab(*)) 2 mg PO Q4H PRN PRN Reason: AGITATION Last Admin: 07/29/19 20:26 Dose: 2 mg Miscellaneous (Ativan Pyxis Marcial) 1 ea N/A .PYXIS MARCIAL PRN PRN Reason: PER PROTOCOL Multivitamins (Theragran Tab*) 1 tab PO DAILY [facility] Last Admin: 08/04/19 09:31 Dose: Not Given Olanzapine (Zyprexa * Tab Odt) 10 mg PO Q6H PRN PRN Reason: AGITATION Olanzapine (Zyprexa * Tab Odt) 10 mg PO BEDTIME [facility] Last Admin: 08/03/19 22:04 Dose: 10 mg Phenyleph/Shark Oil/Min Oil/Petrol (Preparation H*) 1 applic TOPICAL Q1H PRN PRN Reason: HEMORRHOID PAIN - Discharge Plan Discharge Plan: Inpatient Hospitalization Outpatient Program: [facility]
[2019-08-04] MEDS: OLANzapine TAB*ODT* 5 MG PO SCH (22:00)
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
[2019-08-05] MEDS: Lithium Carbonate TAB* 300 MG PO SCH (08:58)
[2019-08-05] MEDS: Divalproex ER TAB(*) 250 MG PO SCH (08:58)
[2019-08-05 11:07] VITALS: BP 174/77
[2019-08-05] MEDS ORDERED: OLANzapine TAB* 10 MG PO SCH (21:00)
== END 2019-08-05 12:00 | disposition home or self-care (01) | DRG 753 ==
LOC: ED 00:54 → BSU 13:33
PROVIDERS: ADMIT Psychiatry & Neurology Psychiatry; ATTEND Psychiatry & Neurology Psychiatry
PROC: GZHZZZZ Group Psychotherapy (ICD-10-PCS; principal; 2019-07-07)
DX: F31.2 Bipolar disorder, current episode manic severe with psychotic features (principal); Z68.42 Body mass index [BMI] 45.0-49.9, adult; F60.3 Borderline personality disorder; F90.9 Attention-deficit hyperactivity disorder, unspecified type; F41.9 Anxiety disorder, unspecified; F50.81 Binge eating disorder; F43.10 Post-traumatic stress disorder, unspecified; E66.01 Morbid (severe) obesity due to excess calories; Z62.810 Personal history of physical and sexual abuse in childhood; Z91.14 Patient's other noncompliance with medication regimen
CPT/HCPCS: 36415; 80053; 80061; 80164; 80178; 80307; 80320; 80329; 81003; 81015; 83036; 84443; 85025; 87086; 90853; 99222; 99231; 99232; 99233; 99238; 99285; A9270-GY; G0480; J1200; J1630; J2060

== ENCOUNTER 2019-08-15 12:47 | Emergency (ER) | payer OTHER ==
--- NOTE | 2019-08-15 13:42 | ED ---
Psychiatric Complaint - HPI Summary HPI Summary: 24 year old male presents to the ED with a chief complaint of visual hallucinations starting this morning. He reports seeing pages of a book levitate and the dots of his couch fly. He also mentions feeling depressed lately. Patient has been an inpatient at [facility] for 2 weeks and was released last week. Patient is not suicidal or homicidal.Similar episode 3 years ago. History of BPD and depression. Patient has been taking his medications. - History Of Current Complaint Chief Complaint: EDMentalHealth Time Seen by Provider: 08/15/19 13:16 Hx Obtained From: Patient Onset/Duration: Sudden Onset, Lasting Hours, Still Present Timing: Constant Character: Manic Aggravating Factor(s): Nothing Alleviating Factor(s): Nothing Associated Signs And Symptoms: Positive: Hallucinating - visually Related History: Positive For: Prior Psychiatric Issues Has Suicidal: Denies: Thoughts Has Homicidal: Denies: Thoughts - Allergies/Home Medications Allergies/Adverse Reactions: Allergies Allergy/AdvReac Type Severity Reaction Status Date / Time No Known Allergies Allergy Verified 08/15/19 12:54 Home Medications: Home Medications Divalproex DR TAB(*) [Depakote DR TAB(*)] 250 mg PO BID 08/15/19 [History Confirmed 08/15/19] Divalproex DR TAB(*) [Depakote DR(*)] 500 mg PO BID 08/15/19 [History Confirmed 08/15/19] PMH/Surg Hx/FS Hx/Imm Hx Endocrine/Hematology History: Denies: Hx Diabetes Cardiovascular History: Denies: Hx Hypertension GI History: Reports: Other GI Disorders - Diarrhea/Constipation Sensory History: Reports: Hx Contacts or Glasses Denies: Hx Hearing Aid Opthamlomology History: Reports: Hx Contacts or Glasses Psychiatric History: Reports: Hx Anxiety, Hx Attention Deficit Hyperactivity Disorder, Hx Eating Disorder - Binge, Hx Depression, Hx Post Traumatic Stress Disorder, Hx Inpatient Treatment - [facility] x 2, Hx Community Mental Health Tx - [facility] and [facility], Hx Bipolar Disorder, Hx of Violent Episodes Against Others, Hx Substance Abuse - "Marijuana" Denies: Hx Schizophrenia, Hx Suicide Attempt - Cancer History Hx Chemotherapy: No Hx Radiation Therapy: No Infectious Disease History: No Infectious Disease History: Denies: Traveled Outside the [place] in Last 30 Days - Family History Known Family History: Negative: Cardiac Disease, Hypertension - Social History Alcohol Use: None Hx Substance Use: Yes Substance Use Type: Reports: Marijuana Substance Use Comment - Amount & Last Used: States that he quit Hx Tobacco Use: No Smoking Status (MU): Never Smoked Tobacco Amount Used/How Often: pt has used no tobacco products in last 30 days. Review of Systems Negative: Fever Neurological: Other - Hallucinating Positive: Depressed All Other Systems Reviewed And Are Negative: Yes Physical Exam - Summary Physical Exam Summary: VITAL SIGNS: Reviewed. GENERAL: Patient is a well-developed and nourished male who is lying comfortable in the stretcher. Patient is not in any acute respiratory distress. HEAD AND FACE: No signs of trauma. No ecchymosis, hematomas or skull depressions. No sinus tenderness. EYES: PERRLA, EOMI x 2, No injected conjunctiva, no nystagmus. EARS: Hearing grossly intact. Ear canals and tympanic membranes are within normal limits. MOUTH: Oropharynx within normal limits. NECK: Supple, trachea is midline, no adenopathy, no JVD, no carotid bruit, no c- spine tenderness, neck with full ROM. CHEST: Symmetric, no tenderness at palpation. LUNGS: Clear to auscultation bilaterally. No wheezing or crackles. CVS: Regular rate and rhythm, S1 and S2 present, no murmurs or gallops appreciated. ABDOMEN: Soft, non-tender. No signs of distention. No rebound, no guarding, and no masses palpated. Bowel sounds are normal. EXTREMITIES: FROM in all major joints, no edema, no cyanosis or clubbing. NEURO: Alert and oriented x 3. No acute neurological deficits. Speech is normal and follows commands. SKIN: Dry and warm. PSYCH: Depressed, quiet, and denies any suicidal thoughts or plan. No homicidal thoughts or plan. No signs of psychosis or pressure speech. No tangential speech. Triage Information Reviewed: Yes Vital Signs On Initial Exam: Initial Vitals Temp Pulse Resp BP Pulse Ox 97.0 F 95 16 125/87 97 08/15/19 12:49 08/15/19 12:49 08/15/19 12:49 08/15/19 12:49 08/15/19 12:49 Vital Signs Reviewed: Yes Procedures - Sedation Patient Received Moderate/Deep Sedation with Procedure: No Diagnostics - Vital Signs Vital Signs Temp Pulse Resp BP Pulse Ox 08/15/19 12:49 97.0 F 95 16 125/87 97 - Laboratory Result Diagrams: 08/15/19 13:42 08/15/19 13:42 Lab Statement: Any lab studies that have been ordered have been reviewed, and results considered in the medical decision making process. Course/Dx - Course Assessment/Plan: 24 year old male presents to the ED with a chief complaint of visual hallucinations starting this morning. He reports seeing pages of a book levitate and the dots of his couch fly. He also mentions feeling depressed lately. Patient has been an inpatient at [facility] for 2 weeks and was released last week. Patient is not suicidal or homicidal.Similar episode 3 years ago. History of BPD and depression. Patient has been taking his medications. Blood work w/o a significant abnormality. He is medically cleared. He is awaiting a [facility]. Patient is hemodynamically stable and A+O x 3. Dr. Rubio (Psychiatry) assess patient and clear the patient and recommends to discharge the patient home with outpatient follow up. - Differential Dx/Clinical Impression Differential Diagnosis/HQI/PQRI: Positive: Acute Psychosis, Anxiety, Depression Provider Diagnosis: Psychosis - Physician Notifications Discussed Care Of Patient With: Zina Rubio - Psych Time Discussed With Above Provider: 15:30 Instructed by Provider To: Other - Dr. Rubio diagnoses the patient with psychosis. He recommends discharging the patient home. Discharge ED - Sign-Out/Discharge Documenting (check all that apply): Patient Departure - discharge home - Discharge Plan Condition: Stable Disposition: HOME [facility]errals: [facility] [Other] (PT. WAS TOLD TO CALL [facility] on 08-16-1999 as they are closed today for holiday. pt. has his own therapist and psychiatrist and will talk to them about his triggers and anxiety) Edwin Poon MD [Primary Care Provider] - Additional Instructions: pt. was seen in ED for anxiety and talked to HUY and Dr. Reno. Both parents were with pt. P t. does not want to go back to his apartment due to triggers and will live in an apt. his father owns. Pt. was advised to call therapist and psychiatrist on 08-16-1999 at [facility] as agency closed today. IMPORTANT PHONE NUMBERS [facility] Behavioral Services Unit: [facility] Emergency Room Behavioral Pod: Suicide Prevention and Crisis Services: The Chat: Text (free and confidential online crisis service sponsored by [facility] Suicide Prevention, available Thursday-Thursday 6pm 9pm) National Suicide Prevention Lifeline: (224) 394-QPAH (7711) National Crisis Text Line: Text HELLO to 325719 [facility] Mental Health Clinic: [facility] Outreach for Older Adults: [facility] Mental Health Association: [facility]: [facility] Police: [facility] Sheriff: [place] [employer]: Alcoholics Anonymous: Narcotics Anonymous: Alcohol and Drug [facility]: [facility] ([facility]) Outpatient Services: [place] [facility]: [phone] Alcohol & Drug Crisis: [facility] Gage Moore: Department of Branding Specialist: [place] [facility] [place]: [facility] Action: [place] Housing Authority: [facility]: Neighborhood Housing Services: [facility] Independent Center: [facility] ACT Team: [employer] Charities: [facility]: Loaves and Fishes (free daily meals): [facility] Action Food Pantry: Advocacy Center: or [facility] (YAP): [facility] Activities Center (AC): Open Doors: [place] Youth Banks: - Billing Disposition and Condition Condition: STABLE Disposition: Home - Attestation Statements Document Initiated by Scribe: Yes Documenting Scribe: Ghanshyam Alexandre Provider For Whom Alanibe is Documenting (Include Credential): Holden Fermin MD Scribe Attestation: Ghanshyam Mccord, scribed for Holden Fermin MD on 08/15/19 at 2121. Scribe Documentation Reviewed: Yes Provider Attestation: The documentation as recorded by the Ghanshyam norton accurately reflects the service I personally performed and the decisions made by Holden pierre MD Status of Scribe Document: Viewed
[2019-08-15 13:50] LABS: Urine Appearance Clear; Urine Bilirubin Negative (Negative); Urine Blood Negative (Negative); Urine Color Straw; Urine Glucose Negative (Negative); Urine Ketones Negative (Negative); Urine Nitrite Negative (Negative); Urine Protein Negative (Negative); Urine Specific Gravity 1.006 (1.010-1.030); Urine Urobilinogen Negative (Negative)
[2019-08-15 13:57] LABS: ABS Eosinophils 0.4 10^3/ul (0-0.6); ABS Lymphocytes 1.1 10^3/ul (1.0-4.8); ABS Monocytes 0.4 10^3/ul (0-0.8); ABS Neutrophils 3.8 10^3/ul (1.5-7.7); Eosinophil % 7.4 %; Hematocrit 45 % (42-52); Mean Corpuscular HGB Conc 34 g/dL (31-36); Mean Corpuscular Hemoglobin 30 pg (27-31); Mean Corpuscular Volume 89 fL (80-94); Mean Platelet Volume 7.4 fL (7.4-10.4); Nucleated Red Blood Cells % 0.1; Platelet Count 232 10^3/uL (150-450); Red Blood Count 5.05 10^6 /uL (4.18-5.48); Red Cell Distribution Width 14 % (10-15); White Blood Count 5.8 10^3/uL (3.5-10.8)
[2019-08-15 14:00] LABS: Urine Bacteria Absent (Absent); Urine Red Blood Cell Absent (Absent); Urine White Blood Cell Trace(0-5/hpf) (Absent)
[2019-08-15 14:11] LABS: ALT 43 U/L (7-52); AST 27 U/L (13-39); Albumin 4.2 g/dL (3.2-5.2); Albumin/Globulin Ratio 1.4 (1-3); Alkaline Phosphatase 70 U/L (34-104); Anion Gap 5 mmol/L (2-11); BUN/Creatinine Ratio 8.2 (8-20); Blood Urea Nitrogen 8 mg/dL (6-24); CO2 Carbon Dioxide 25 mmol/L (22-32); Calcium 9.1 mg/dL (8.6-10.3); Chloride 106 mmol/L (101-111); EGFR African American 114.1 (>60); EGFR Non-African American 94.3 (>60); Glucose 88 mg/dL (70-100); Potassium 4.2 mmol/L (3.5-5.0); Sodium 136 mmol/L (135-145); Total Protein 7.2 g/dL (6.4-8.9)
[2019-08-15 14:14] LABS: Urine Benzodiazepine Screen None Detected (None Detect); Urine Opiates Screen None Detected (None Detect)
[2019-08-15 14:22] LABS: Acetaminophen < 15 mcg/mL; Alcohol < 10 mg/dL (<10); Salicylate < 2.50 mg/dL (<30)
[2019-08-15 14:36] LABS: TSH (Thyroid Stimulating Horm) 6.32 mcIU/mL (0.34-5.60)
--- NOTE | 2019-08-15 15:30 | PN ---
ED Psychiatric Progress Note Date of Service: 08/15/19 Subjective: CC " I do not like where I am living" The patient was brought to [facility] by his parents. Patient was brought to the hospital at own request because he had a visual hallucination of colors and words on a sheet as well as being in love with the person that lives above him. Patient reported that he has purposely not been eating carbohydrates and he is requesting to live somewhere else. Patients parents plan to have patient live with them until [facility] can find him housing. He plans to see his therapist on . Denied access to firearms or stockpiles of medications. He reported adequate sleep. The patient denied suicidal and or homicidal ideation intent or plan. The patient denied auditory hallucinations. Patient denied recent manic episode and said that he has been feeling lonely and needs to be around people. Patient looks forward to seeing his therapist . Mental Status Exam APPEARANCE : 24 year old male who appears stated age. Patient is not malodourous, and appears to have fair hygiene and grooming. BEHAVIOR: Cooperative , calm EYE CONTACT: Fair PSYCHOMOTOR ACTIVITY: No psychomotor agitation or retardation. MOVEMENTS: No abnormal movements observed. SPEECH : Normal rate, rhythm, volume and tone. MOOD : "Lonely " AFFECT : Type euthymic, Range is full , Mood congruent THOUGHT PROCESS: formulated and organized in a logical, linear goal directed manner. No flight of ideas , neologism (made up words) , perseveration , tangential , loose associations , or circumstantiality. THOUGHT CONTENT: no delusions, preoccupations, obsessions, phobias or preoccupations. PERCEPTION: No current auditory hallucinations. recent illusions SUICIDALITY Denied suicidal ideation, intent or plan. HOMICIDALITY Denied homicidal ideation, intent or plan. Insight/judgment: Fair insight and judgment ORIENTATION: Oriented to self, location, and time. Diagnosis: Bipolar I disorder in partial remission. PTSD. Borderline personality Disorder Assessment: 24 year old male with history of bipolar disorder , PTSD , and Borderline personality Disorder came to the emergency department for feelings of being lonely and having illusions. PLAN # Patient doesnt require inpatient psychiatric admission # Patient plans to be discharged home with parents # Plans to live with parents who are in agreement with this plan # Parents have no concern of homicide and or suicide # Plans to follow up with [facility] and pros The patient was advised of the 24 hour / 7 days a week availability of the emergency room and to call 911 in the event of an emergency Risk factors: Male, Trauma history, , single, history of mental illness. Protective factors: Currently no suicidal ideation, intent or plan. No prior history of suicide attempt. Has strong support system. No history of service. Currently no feelings of hopelessness, not in an occupation of social isolation, doesnt have multiple medical conditions, no family history of suicide, doesnt have access to firearms. Doesnt have command hallucinations and or psychotic features at this time. No current substance abuse. No current alcohol abuse. Not an anniversary of a loss of a loved one. No changes in relationship status.. Currently future orientated. Patient engaged in treatment and compliant with medication. Vital Signs Temp Pulse Resp BP Pulse Ox 97.0 F 95 16 125/87 97 08/15/19 12:49 08/15/19 12:49 08/15/19 12:49 08/15/19 12:49 08/15/19 12:49 Lab Results - Entire Visit 08/15/19 08/15/19 08/15/19 13:42 13:42 13:15 WBC 5.8 RBC 5.05 Hgb 15.0 Hct 45 MCV 89 MCH 30 MCHC 34 RDW 14 Plt Count 232 MPV 7.4 Neut % (Auto) 65.9 Lymph % (Auto) 19.0 [place] % (Auto) 6.9 Eos % (Auto) 7.4 Baso % (Auto) 0.8 Absolute Neuts (auto) 3.8 Absolute Lymphs (auto) 1.1 Absolute Monos (auto) 0.4 Absolute Eos (auto) 0.4 Absolute Basos (auto) 0.0 Absolute Nucleated RBC 0.0 Nucleated RBC % 0.1 Sodium 136 Potassium 4.2 Chloride 106 Carbon Dioxide 25 Anion Gap 5 BUN 8 Creatinine 0.97 Est GFR ( Amer) 114.1 Est GFR (Non-Af Amer) 94.3 BUN/Creatinine Ratio 8.2 Glucose 88 Calcium 9.1 Total Bilirubin 0.70 AST 27 ALT 43 Alkaline Phosphatase 70 Total Protein 7.2 Albumin 4.2 Globulin 3.0 Albumin/Globulin Ratio 1.4 TSH 6.32 H Urine Color Urine Appearance Urine pH Ur Specific [place] Urine Protein Urine Ketones Urine Blood Urine Nitrate Urine Bilirubin Urine Urobilinogen Ur Leukocyte Esterase Urine WBC (Auto) Urine RBC (Auto) Urine Bacteria Urine Glucose Salicylates < 2.50 Urine Opiates Screen None detected Acetaminophen < 15 Ur Barbiturates Screen None detected Ur Phencyclidine Scrn None detected Ur Amphetamines Screen None detected U Benzodiazepines Scrn None detected Urine Cocaine Screen None detected U Cannabinoids Screen None detected Serum Alcohol < 10 08/15/19 13:15 WBC RBC Hgb Hct MCV MCH MCHC RDW Plt Count MPV Neut % (Auto) Lymph % (Auto) [place] % (Auto) Eos % (Auto) Baso % (Auto) Absolute Neuts (auto) Absolute Lymphs (auto) Absolute Monos (auto) Absolute Eos (auto) Absolute Basos (auto) Absolute Nucleated RBC Nucleated RBC % Sodium Potassium Chloride Carbon Dioxide Anion Gap BUN Creatinine Est GFR ( Amer) Est GFR (Non-Af Amer) BUN/Creatinine Ratio Glucose Calcium Total Bilirubin AST ALT Alkaline Phosphatase Total Protein Albumin Globulin Albumin/Globulin Ratio TSH Urine Color Straw Urine Appearance Clear Urine pH 8.0 Ur Specific [place] 1.006 L Urine Protein Negative Urine Ketones Negative Urine Blood Negative Urine Nitrate Negative Urine Bilirubin Negative Urine Urobilinogen Negative Ur Leukocyte Esterase 1+ A Urine WBC (Auto) Trace(0-5/hpf) Urine RBC (Auto) Absent Urine Bacteria Absent Urine Glucose Negative Salicylates Urine Opiates Screen Acetaminophen Ur Barbiturates Screen Ur Phencyclidine Scrn Ur Amphetamines Screen U Benzodiazepines Scrn Urine Cocaine Screen U Cannabinoids Screen Serum Alcohol
[2019-08-15 15:57] VITALS: BP 118/82
== END 2019-08-15 16:00 | disposition home or self-care (01) ==
LOC: ED 12:47
DX: F31.75 Bipolar disorder, in partial remission, most recent episode depressed (principal); F60.3 Borderline personality disorder; F43.10 Post-traumatic stress disorder, unspecified
CPT/HCPCS: 36415; 80053; 80307; 80320; 80329; 81003; 81015; 84443; 85025; 87086; 99284; G0480

== ENCOUNTER 2020-03-26 12:37 | Inpatient (IN) ==
[2020-03-26 14:31] LABS: Urine Appearance Clear; Urine Bilirubin Negative (Negative); Urine Blood Negative (Negative); Urine Color Yellow; Urine Glucose Negative (Negative); Urine Ketones Negative (Negative); Urine Nitrite Negative (Negative); Urine Protein Negative (Negative); Urine Specific Gravity 1.009 (1.010-1.030); Urine Urobilinogen Negative (Negative)
[2020-03-26 14:32] LABS: ABS Eosinophils 0.3 10^3/ul (0-0.6); ABS Lymphocytes 1.4 10^3/ul (1.0-4.8); ABS Monocytes 0.5 10^3/ul (0-0.8); ABS Neutrophils 5.5 10^3/ul (1.5-7.7); Eosinophil % 4.3 %; Hematocrit 41 % (42-52); Hemoglobin 14.2 g/dL (14.0-18.0); Lymphocyte % 18.2 %; Mean Corpuscular HGB Conc 35 g/dL (31-36); Mean Corpuscular Hemoglobin 31 pg (27-31); Mean Corpuscular Volume 91 fL (80-94); Mean Platelet Volume 7.6 fL (7.4-10.4); Platelet Count 223 10^3/uL (150-450); Red Cell Distribution Width 13 % (10-15); White Blood Count 7.7 10^3/uL (3.5-10.8)
[2020-03-26 14:38] LABS: Urine Bacteria Absent (Absent); Urine Red Blood Cell Absent (Absent); Urine White Blood Cell 1+(6-10/hpf) (Absent)
[2020-03-26 14:53] LABS: ALT 63 U/L (7-52); AST 46 U/L (13-39); Albumin 4.5 g/dL (3.2-5.2); Albumin/Globulin Ratio 1.5 (1-3); Alkaline Phosphatase 73 U/L (34-104); Anion Gap 8 mmol/L (2-11); BUN/Creatinine Ratio 11.6 (8-20); Blood Urea Nitrogen 13 mg/dL (6-24); CO2 Carbon Dioxide 28 mmol/L (22-32); Calcium 9.7 mg/dL (8.6-10.3); Chloride 101 mmol/L (101-111); EGFR African American 96.7 (>60); EGFR Non-African American 79.9 (>60); Glucose 127 mg/dL (70-100); Potassium 3.7 mmol/L (3.5-5.0); Sodium 137 mmol/L (135-145); Total Protein 7.5 g/dL (6.4-8.9)
[2020-03-26 15:05] LABS: Urine Benzodiazepine Screen None Detected (None Detect); Urine Cannabinoids Screen None Detected (None Detect); Urine Opiates Screen None Detected (None Detect)
[2020-03-26 15:29] LABS: Lithium 0.75 mmol/L (0.6-1.2)
[2020-03-26 15:35] LABS: Acetaminophen < 15 mcg/mL; Alcohol, S < 10 mg/dL (<10); Salicylate < 2.50 mg/dL (<30)
[2020-03-26] MEDS ORDERED: Al Hydrox/Mg Hydrox/Simet LIQ 30 ML UDC PO PRN (16:15)
[2020-03-27] MEDS: Vitamin THERAPEUTIC TAB PO SCH (09:27)
[2020-03-28] MEDS: Vitamin THERAPEUTIC TAB PO SCH (08:31)
[2020-03-28 11:00] LABS: Free T4 0.99 ng/dL (0.61-1.12)
[2020-03-29] MEDS: Vitamin THERAPEUTIC TAB PO SCH (08:30)
[2020-03-30 08:47] VITALS: BP 130/81
[2020-03-30] MEDS: Vitamin THERAPEUTIC TAB PO SCH (08:51)
== END 2020-03-30 09:25 | disposition home or self-care (01) | DRG 753 ==
LOC: ED 12:37 → BSU 16:15
PROVIDERS: ADMIT Psychiatry & Neurology Psychiatry; ATTEND Psychiatry & Neurology Psychiatry

== ENCOUNTER 2021-09-14 08:58 | Inpatient (IN) ==
[2021-09-14 10:18] LABS: ABS Eosinophils 0.3 10^3/ul (0-0.6); ABS Lymphocytes 1.1 10^3/ul (1.0-4.8); ABS Monocytes 0.3 10^3/ul (0-0.8); ABS Neutrophils 5.1 10^3/ul (1.5-7.7); Eosinophil % 3.7 %; Hematocrit 46 % (42-52); Hemoglobin 15.5 g/dL (14.0-18.0); Lymphocyte % 16.3 %; Mean Corpuscular HGB Conc 34 g/dL (31-36); Mean Corpuscular Hemoglobin 29 pg (27-31); Mean Corpuscular Volume 87 fL (80-94); Mean Platelet Volume 7.7 fL (7.4-10.4); Platelet Count 253 10^3/uL (150-450); Red Blood Count 5.33 10^6 /uL (4.18-5.48); Red Cell Distribution Width 13 % (10-15); White Blood Count 6.9 10^3/uL (3.5-10.8)
[2021-09-14 10:28] LABS: Lithium 0.69 mmol/L (0.6-1.2)
[2021-09-14 10:33] LABS: Acetaminophen < 15 mcg/mL; Alcohol, S < 13 mg/dL (<13); Salicylate < 2.50 mg/dL (<30)
[2021-09-14 10:34] LABS: ALT 104 U/L (7-52); AST 45 U/L (13-39); Albumin 4.4 g/dL (3.2-5.2); Albumin/Globulin Ratio 1.4 (1-3); Alkaline Phosphatase 85 U/L (35-149); Anion Gap 10 mmol/L (2-11); Blood Urea Nitrogen 12 mg/dL (6-24); CO2 Carbon Dioxide 25 mmol/L (22-32); Chloride 101 mmol/L (101-111); Globulin 3.2 g/dL (2-4); Glucose 170 mg/dL (70-100); Potassium 3.3 mmol/L (3.5-5.0); Sodium 136 mmol/L (135-145); Total Protein 7.6 g/dL (6.4-8.9); eGFR CKD-EPI 93.3 (>60)
[2021-09-14 10:53] LABS: Urine Appearance Clear; Urine Bilirubin Negative (Negative); Urine Blood Negative (Negative); Urine Color Yellow; Urine Glucose Negative (Negative); Urine Ketones Negative (Negative); Urine Nitrite Negative (Negative); Urine Protein Negative (Negative); Urine Specific Gravity 1.018 (1.002-1.030); Urine Urobilinogen Negative (Negative)
[2021-09-14 11:06] LABS: TSH Ultra Thyroid Stim Horm 3.41 mcIU/mL (0.34-5.60)
[2021-09-14 11:11] LABS: Urine Benzodiazepine Screen None Detected (None Detect); Urine Cannabinoids Screen None Detected (None Detect); Urine Opiates Screen None Detected (None Detect)
[2021-09-14 11:53] LABS: Urine Bacteria Absent (Absent); Urine Red Blood Cell Trace(0-2/hpf) (Absent); Urine White Blood Cell 1+(6-10/hpf) (Absent)
[2021-09-14] MEDS ORDERED: Al Hydrox/Mg Hydrox/Simet LIQ 30 ML UDC PO PRN ×2 (16:53→16:57)
[2021-09-14] MEDS ORDERED: Cariprazine 3 mg CAP (NF) PO SCH (21:00)
[2021-09-14] MEDS ORDERED: PTO: Cariprazine 3 mg CAP (NF) PO SCH ×2 (21:29→22:00)
[2021-09-15 07:37] LABS: HDL Cholesterol 44.7 mg/dL
[2021-09-15] MEDS: Vitamin THERAPEUTIC TAB PO SCH (08:17)
[2021-09-15] MEDS: Cholecalciferol (VIT D3) 1,000 unit TAB PO SCH (08:17)
[2021-09-15] MEDS ORDERED: Vitamin THERAPEUTIC TAB PO SCH (09:00)
[2021-09-15] MEDS ORDERED: Flu vaccine *QUAD* 2021-22* 0.5 ML SYRINGE IM ONE (09:00)
[2021-09-15] MEDS: PTO:Cariprazine 3 mg CAP (NF) PO SCH (21:00)
[2021-09-16] MEDS: Cholecalciferol (VIT D3) 1,000 unit TAB PO SCH (08:11)
[2021-09-16] MEDS: Vitamin THERAPEUTIC TAB PO SCH (08:11)
[2021-09-16 08:22] LABS: Albumin 4.3 g/dL (3.2-5.2); Albumin/Globulin Ratio 1.4 (1-3); Total Bilirubin 1.1 mg/dL (0.2-1.0); Total Protein 7.3 g/dL (6.4-8.9); eGFR CKD-EPI 104.5 (>60)
[2021-09-16] MEDS: PTO:Cariprazine 3 mg CAP (NF) PO SCH (21:19)
[2021-09-17 08:04] VITALS: BP 159/98
[2021-09-17] MEDS: Cholecalciferol (VIT D3) 1,000 unit TAB PO SCH (08:13)
[2021-09-17] MEDS: Vitamin THERAPEUTIC TAB PO SCH (08:13)
== END 2021-09-17 11:45 | disposition home or self-care (01) | DRG 753 ==
LOC: ED 08:58 → BSU 16:47
PROVIDERS: ADMIT Student in an Organized Health Care Education/Training Program; ATTEND Student in an Organized Health Care Education/Training Program